=== PATIENT | male | born 1945 | race Hispanic/Latino ===

== ENCOUNTER 2017-06-30 00:08 | Observation (INO) | payer MEDICARE ==
[~2017-06-30 00:08] MED LIST: AEC81 PO; CILO50TA PO; CLOP75TA14 PO; IBUP-2076 PO; INSULIN; LISI10TA7 PO; METF10004 PO; METO-408 PO; Metoprolol Succinate PO; ROSU10TA GT; TRAM50TA4 PO; [UNRECOGNIZED DRUG - OTHER] PO
[2017-06-30 00:50] LABS: BASOPHILS % (AUTO) 0.4 % (0.0-5.0); EOSINOPHILS % (AUTO) 0.8 % (0.0-8.0); HEMATOCRIT 35.4 % (42-54); LYMPHOCYTES % (AUTO) 38.6 % (21.0-51.0); MEAN CORPUSCULAR HEMOGLOBIN 31.9 pg (27.0-33.0); MEAN CORPUSCULAR HGB CONC 34.7 g/dL (32.0-36.0); MEAN CORPUSCULAR VOLUME 91.8 fL (79-99); MONOCYTES % (AUTO) 7.6 % (3.0-13.0); NEUTROPHILS % (AUTO) 52.6 % (40.0-77.0); PLATELET COUNT (AUTO) 102 K/uL (130-400); RED BLOOD CELL COUNT(AUTO) 3.86 MIL/uL (4.50-6.20); RED CELL DISTRIBUTION WIDTH 13.2 % (11.0-15.5); WHITE BLOOD COUNT (AUTO) 7.6 K/uL (4.8-10.8)
[2017-06-30 00:59] LABS: CARBON DIOXIDE 27 mmol/L (21-32); CHLORIDE 100 mmol/L (101-111); CREATININE 1.3 mg/dL (0.5-1.5); GLOMERULAR FILTR. RATE CALC 58 mL/min (>60); GLUCOSE,RANDOM 221 mg/dL (70-105); POTASSIUM 4.1 mmol/L (3.5-5.1); SODIUM SERUM 135 mmol/L (136-145); UREA NITROGEN, BLOOD 21 mg/dL (7-18)
[2017-06-30] MEDS ORDERED: ASPIRIN 325 MG TABLET ONE (00:59)
[2017-06-30] MEDS ORDERED: NITROGLYCERIN 1GM/1 INCH PACKET TD ONE (01:00)
[2017-06-30 01:03] LABS: ALANINE AMINOTRANSFERASE 22 U/L (12-78); ALBUMIN 3.2 g/dL (3.5-5.0); ASPARTATE AMINOTRANSFERASE 7 U/L (10-37); BILIRUBIN,DIRECT < 0.1 mg/dL (0.0-0.3); BILIRUBIN,TOTAL 0.2 mg/dL (0.2-1.0); CREATINE KINASE, TOTAL 132 U/L (21-232)
[2017-06-30 08:13] LABS: BASOPHILS % (AUTO) 0.4 % (0.0-5.0); EOSINOPHILS % (AUTO) 0.8 % (0.0-8.0); HEMATOCRIT 36.8 % (42-54); LYMPHOCYTES % (AUTO) 42.5 % (21.0-51.0); MEAN CORPUSCULAR HEMOGLOBIN 31.4 pg (27.0-33.0); MEAN CORPUSCULAR HGB CONC 33.8 g/dL (32.0-36.0); MONOCYTES % (AUTO) 7.6 % (3.0-13.0); NEUTROPHILS % (AUTO) 48.7 % (40.0-77.0); PLATELET COUNT (AUTO) 114 K/uL (130-400); RED BLOOD CELL COUNT(AUTO) 3.96 MIL/uL (4.50-6.20); RED CELL DISTRIBUTION WIDTH 13.1 % (11.0-15.5); WHITE BLOOD COUNT (AUTO) 6.3 K/uL (4.8-10.8)
[2017-06-30 08:22] LABS: CREATININE 1.2 mg/dL (0.5-1.5); POTASSIUM 4.1 mmol/L (3.5-5.1)
[2017-06-30 08:26] LABS: ALBUMIN 3.4 g/dL (3.5-5.0); BILIRUBIN,TOTAL 0.3 mg/dL (0.2-1.0); TOTAL PROTEIN, SERUM 7.2 g/dL (6.0-8.3)
[2017-06-30 08:37] LABS: CREATINE KINASE MB 2.3 ng/mL (0.5-3.6); CREATINE KINASE, TOTAL 131 U/L (21-232); MYOGLOBIN 96 ng/mL (10-92); TROPONIN I < 0.04 ng/mL (0.00-0.06)
[2017-06-30 12:43] LABS: CREATINE KINASE MB 2.1 ng/mL (0.5-3.6); CREATINE KINASE, TOTAL 133 U/L (21-232); MYOGLOBIN 109 ng/mL (10-92); TROPONIN I < 0.04 ng/mL (0.00-0.06)
== END 2017-06-30 17:07 | disposition home or self-care (01) ==
LOC: EDH 00:08 → EDHIP 03:50
PROVIDERS: ADMIT Family Medicine; ATTEND Family Medicine
DX: I24.9 Acute ischemic heart disease, unspecified (principal); R07.2 Precordial pain; I25.10 Atherosclerotic heart disease of native coronary artery without angina pectoris; I10 Essential (primary) hypertension; E78.5 Hyperlipidemia, unspecified; E11.9 Type 2 diabetes mellitus without complications; Z95.1 Presence of aortocoronary bypass graft; F17.210 Nicotine dependence, cigarettes, uncomplicated
CPT/HCPCS: 36415; 71010; 80048; 80053; 80076; 82550 ×3; 82553 ×2; 83874 ×2; 83880; 84484 ×3; 85025 ×2; 93005 ×3; 99285; G0378 ×13

== ENCOUNTER 2017-10-03 14:48 | Inpatient (IN) | payer MEDICARE ==
[~2017-10-03] VITALS: Ht 172.7 cm; Wt 83.7 kg
[2017-10-03] MEDS ORDERED: ACETAMINOPHEN 325 MG TAB ONE ×2 (15:15→21:17)
[2017-10-03 15:56] LABS: APPEARANCE,URINE Clear (CLEAR); BASOPHILS % (AUTO) 0.3 % (0.0-5.0); BILIRUBIN,URINE Negative (NEGATIVE); COLOR,URINE Yellow (YELLOW); EOSINOPHILS % (AUTO) 0.1 % (0.0-8.0); GLUCOSE, URINE (UA) 500 mg/dL (NEGATIVE); HEMATOCRIT 40.2 % (42-54); KETONES,URINE Negative (NEGATIVE); LEUKOCYTE ESTERASE ,URINE Trace (NEGATIVE); LYMPHOCYTES % (AUTO) 8.7 % (21.0-51.0); MEAN CORPUSCULAR HEMOGLOBIN 31.2 pg (27.0-33.0); MEAN CORPUSCULAR HGB CONC 34.4 g/dL (32.0-36.0); MEAN CORPUSCULAR VOLUME 90.6 fL (79-99); MONOCYTES % (AUTO) 3.5 % (3.0-13.0); NEUTROPHILS % (AUTO) 87.4 % (40.0-77.0); NITRATE,URINE Negative (NEGATIVE); OCCULT BLOOD,URINE Negative (NEGATIVE); PLATELET COUNT (AUTO) 120 K/uL (130-400); PROTEIN,URINE Negative (NEGATIVE); RED BLOOD CELL COUNT(AUTO) 4.43 MIL/uL (4.50-6.20); RED CELL DISTRIBUTION WIDTH 13.3 % (11.0-15.5); UROBILINOGEN,URINE 0.2 mg/dL (0.2-1.0); WHITE BLOOD COUNT (AUTO) 8.9 K/uL (4.8-10.8)
[2017-10-03 16:13] LABS: RBC,URINE None Seen /HPF (0-1); WBC,URINE 0-1 /HPF (0-1)
[2017-10-03 16:14] LABS: BACTERIA,URINE None Seen /HPF (None Seen)
[2017-10-03 16:17] LABS: CREATININE 1.4 mg/dL (0.5-1.5); POTASSIUM 4.5 mmol/L (3.5-5.1)
[2017-10-03 16:52] LABS: ALBUMIN 3.9 g/dL (3.5-5.0); BILIRUBIN,DIRECT 0.1 mg/dL (0.0-0.3); BILIRUBIN,TOTAL 0.5 mg/dL (0.2-1.0); TOTAL PROTEIN, SERUM 8.5 g/dL (6.0-8.3)
[2017-10-03] MEDS ORDERED: SODIUM CHLORIDE 0.9% 1000ML 1,000 ML IV ONE ×2 (17:23→20:34)
[2017-10-03] MEDS ORDERED: CEFTRIAXONE SODIUM 1 GM ONE (17:53)
[2017-10-03 21:13] VITALS: BP 134/66
[2017-10-03] MEDS ORDERED: ACETAMINOPHEN 325 MG TAB PO PRN (22:45)
[2017-10-03] MEDS: SODIUM CHLORIDE 0.9% 1000ML 1,000 ML IV SCH (22:45)
[2017-10-03] MEDS ORDERED: GLUCAGON 1MG KIT 1 MG ML IM PRN (22:45)
[2017-10-03] MEDS ORDERED: DEXTROSE 50%-WATER 50 ML DISP.SYRIN IV PRN (22:45)
[2017-10-03 23:00] VITALS: BP 141/61
[2017-10-03] MEDS ORDERED: LISI1TAB11 PO (23:07)
[2017-10-03] MEDS ORDERED: DOCU100C33 PO (23:07)
[2017-10-03] MEDS ORDERED: GLIM4TAB3 PO (23:07)
[2017-10-03] MEDS ORDERED: IBUP-2070 PO (23:07)
[2017-10-04] VITALS (8 sets, daily range): BP systolic 100–178; BP diastolic 44–95
[2017-10-04] MEDS: CEFTRIAXONE SODIUM 1 GM IVP SCH
[2017-10-04 05:58] LABS: HEMATOCRIT 35.5 % (42-54); MEAN CORPUSCULAR HEMOGLOBIN 31.7 pg (27.0-33.0); MEAN CORPUSCULAR HGB CONC 34.9 g/dL (32.0-36.0); MEAN CORPUSCULAR VOLUME 90.9 fL (79-99); PLATELET COUNT (AUTO) 110 K/uL (130-400); RED BLOOD CELL COUNT(AUTO) 3.91 MIL/uL (4.50-6.20); RED CELL DISTRIBUTION WIDTH 13.4 % (11.0-15.5); WHITE BLOOD COUNT (AUTO) 6.7 K/uL (4.8-10.8)
[2017-10-04 06:04] LABS: CREATININE 1.4 mg/dL (0.5-1.5); POTASSIUM 3.9 mmol/L (3.5-5.1)
[2017-10-04] MEDS: INSULIN R PO SS1 SQ SCH ×4 (07:30→21:00)
[2017-10-04] MEDS: SODIUM CHLORIDE 0.9% 1000ML 1,000 ML IV SCH (13:03)
[2017-10-04] MEDS ORDERED: TRAMADOL HCL 50 MG TABLET PO PRN (16:45)
[2017-10-04] MEDS ORDERED: IBUPROFEN 600 MG TABLET PO PRN (16:45)
[2017-10-04] MEDS: METFORMIN HCL 500 MG TABLET PO SCH (17:31)
[2017-10-04 20:26] LABS: CREATININE 1.3 mg/dL (0.5-1.5); POTASSIUM 4.2 mmol/L (3.5-5.1)
[2017-10-04] MEDS: GLIMEPIRIDE 2 MG TABLET PO SCH (21:00)
[2017-10-04] MEDS: METOPROLOL TARTRATE 25 MG TAB PO SCH (21:00)
[2017-10-05] MEDS: CEFTRIAXONE SODIUM 1 GM IVP SCH ×2 (00:49→23:18)
[2017-10-05 03:00] VITALS: BP 165/71
[2017-10-05 06:09] LABS: HEMATOCRIT 35.8 % (42-54); MEAN CORPUSCULAR HEMOGLOBIN 31.7 pg (27.0-33.0); MEAN CORPUSCULAR HGB CONC 34.9 g/dL (32.0-36.0); MEAN CORPUSCULAR VOLUME 90.7 fL (79-99); PLATELET COUNT (AUTO) 102 K/uL (130-400); RED BLOOD CELL COUNT(AUTO) 3.95 MIL/uL (4.50-6.20); RED CELL DISTRIBUTION WIDTH 13.1 % (11.0-15.5); WHITE BLOOD COUNT (AUTO) 6.9 K/uL (4.8-10.8)
[2017-10-05 07:21] LABS: BASOPHILS % (MANUAL) 1 % (0-2); LYMPHOCYTES % (MANUAL) 25 % (22-44); MAN.DIFF COMMENT-IMPRESSION MANUAL DIFFERENTIAL; MONOCYTES % (MANUAL) 3 % (2-9); REACTIVE LYMPHOCYTES 2 % (0-0); SEGMENTED NEUTROPHILS % 69 % (40-70)
[2017-10-05 07:28] LABS: PLATELET MORPHOLOGY COMMENT SLIGHTLY DECREASED
[2017-10-05] MEDS: INSULIN R PO SS1 SQ SCH ×4 (07:30→20:37)
[2017-10-05 08:00] VITALS: BP 157/72
[2017-10-05] MEDS: METFORMIN HCL 500 MG TABLET PO SCH ×2 (08:00→17:24)
[2017-10-05] MEDS: DOCUSATE SODIUM 100 MG CAP PO SCH (09:00)
[2017-10-05] MEDS: METOPROLOL TARTRATE 25 MG TAB PO SCH ×2 (09:00→22:25)
[2017-10-05] MEDS: LISINOPRIL 20 MG TABLET PO SCH (09:00)
[2017-10-05] MEDS: ASPIRIN 81 MG EC TAB PO SCH (09:00)
[2017-10-05] MEDS: GLIMEPIRIDE 2 MG TABLET PO SCH ×2 (09:02→22:25)
[2017-10-05] MEDS: SODIUM CHLORIDE 0.9% 1000ML 1,000 ML IV SCH ×2 (09:05→17:39)
[2017-10-05 11:00] VITALS: BP 149/68
[2017-10-05 16:00] VITALS: BP 104/73
[2017-10-05 19:50] VITALS: BP 163/78
[2017-10-05 23:23] VITALS: BP 155/71
[2017-10-06 03:45] VITALS: BP 153/78
[2017-10-06] MEDS: INSULIN R PO SS1 SQ SCH ×3 (06:54→16:30)
[2017-10-06 08:00] VITALS: BP 114/62
[2017-10-06 11:00] VITALS: BP 128/68
[2017-10-06] MEDS: LISINOPRIL 20 MG TABLET PO SCH (11:38)
[2017-10-06] MEDS: GLIMEPIRIDE 2 MG TABLET PO SCH (11:38)
[2017-10-06] MEDS: METFORMIN HCL 500 MG TABLET PO SCH ×2 (11:38→16:30)
[2017-10-06] MEDS: ASPIRIN 81 MG EC TAB PO SCH (11:38)
[2017-10-06] MEDS: DOCUSATE SODIUM 100 MG CAP PO SCH (11:39)
[2017-10-06] MEDS: METOPROLOL TARTRATE 25 MG TAB PO SCH (11:39)
[2017-10-06 16:00] VITALS: BP 125/60
== END 2017-10-06 19:30 | disposition home or self-care (01) | DRG 639 ==
LOC: EDH 14:48 → EDHIP 17:50 → 3BH 20:23
PROVIDERS: ADMIT Family Medicine; ATTEND Family Medicine
DX: E11.65 Type 2 diabetes mellitus with hyperglycemia (principal); R50.9 Fever, unspecified; E78.5 Hyperlipidemia, unspecified; I10 Essential (primary) hypertension; I25.10 Atherosclerotic heart disease of native coronary artery without angina pectoris; Z95.1 Presence of aortocoronary bypass graft; F41.9 Anxiety disorder, unspecified; F17.200 Nicotine dependence, unspecified, uncomplicated
CPT/HCPCS: 36415; 71046; 80048; 80076; 81001; 82550; 82948; 83605; 83880; 84484; 85025; 85027; 87040; 87088; 87804; 93005; J0696; J1815; J7030

== ENCOUNTER 2018-06-18 21:01 | Observation (INO) | payer MEDICARE ==
[~2018-06-18] VITALS: Ht 172.7 cm; Wt 76.8 kg
[~2018-06-18 21:01] MED LIST changes: -CILO50TA PO; -CLOP75TA14 PO; +DOCU100C33 PO; +GLIM4TAB3 PO; +IBUP-2070 PO; -IBUP-2076 PO; -INSULIN; +METF-446 PO; -METF10004 PO; -METO-408 PO; -ROSU10TA GT; -[UNRECOGNIZED DRUG - OTHER] PO
[2018-06-18 21:20] LABS: BASOPHILS % (AUTO) 0.3 % (0.0-5.0); EOSINOPHILS % (AUTO) 0.4 % (0.0-8.0); HEMATOCRIT 37.3 % (42-54); LYMPHOCYTES % (AUTO) 30.5 % (21.0-51.0); MEAN CORPUSCULAR HEMOGLOBIN 31.8 pg (27.0-33.0); MEAN CORPUSCULAR HGB CONC 34.3 g/dL (32.0-36.0); MEAN CORPUSCULAR VOLUME 92.7 fL (79-99); MONOCYTES % (AUTO) 10.5 % (3.0-13.0); NEUTROPHILS % (AUTO) 58.3 % (40.0-77.0); PLATELET COUNT (AUTO) 113 K/uL (130-400); RED BLOOD CELL COUNT(AUTO) 4.02 MIL/uL (4.50-6.20); RED CELL DISTRIBUTION WIDTH 13.1 % (11.0-15.5); WHITE BLOOD COUNT (AUTO) 7.6 K/uL (4.8-10.8)
[2018-06-18 21:23] LABS: APPEARANCE,URINE Clear (CLEAR); BILIRUBIN,URINE Negative (NEGATIVE); COLOR,URINE Yellow (YELLOW); GLUCOSE, URINE (UA) >=1000 mg/dL (NEGATIVE); KETONES,URINE Trace mg/dL (NEGATIVE); LEUKOCYTE ESTERASE ,URINE Negative (NEGATIVE); NITRATE,URINE Negative (NEGATIVE); OCCULT BLOOD,URINE Trace (NEGATIVE); PH,URINE 5.5 (5.0-8.0); PROTEIN,URINE POS 1+ (NEGATIVE)
[2018-06-18 21:30] LABS: CREATININE 1.3 mg/dL (0.5-1.5)
[2018-06-18 21:35] LABS: ALBUMIN 3.5 g/dL (3.5-5.0); BILIRUBIN,TOTAL 0.5 mg/dL (0.2-1.0)
[2018-06-18 21:35] LABS: BACTERIA,URINE Few /HPF (None Seen); MUCUS,URINE Few LPF (None Seen); SQUAMOUS EPITHELIAL CELL,UR Few /HPF (0-2); WBC,URINE 0-1 /HPF (0-1)
[2018-06-18] MEDS ORDERED: CLINDAMYCIN 900 MG/D5% WATER 50 ML IV ONE (21:44)
[2018-06-18 21:54] LABS: INR 0.98 (0.85-1.15); PARTIAL THROMBOPLASTIN TIME 31.2 SEC (26.3-35.5); PROTHROMBIN TIME 10.3 SEC (9.6-11.6)
[2018-06-18 22:22] LABS: TROPONIN I 0.06 ng/mL (0.00-0.06)
[2018-06-19] MEDS ORDERED: IOHEXOL-350 50ML VIAL IV ONE (00:06)
[2018-06-19] MEDS ORDERED: SODIUM CHLORIDE 0.9% 1000ML 1,000 ML IV SCH (00:22)
[2018-06-19] MEDS ORDERED: ACETAMINOPHEN-CODEINE 300/30MG TAB PO PRN (00:30)
[2018-06-19 02:56] VITALS: BP 155/76
[2018-06-19] MEDS: ZOSYN 3.375GM+NS 50ML 50 ML IV SCH ×3 (04:50→21:11)
[2018-06-19] MEDS ORDERED: GLUCAGON 1MG KIT 1 MG ML IM PRN (05:30)
[2018-06-19] MEDS ORDERED: DEXTROSE 50%-WATER 50 ML DISP.SYRIN IV PRN (05:30)
[2018-06-19] MEDS: CLINDAMYCIN 600 MG/D5% WATER 50 ML IV SCH ×3 (06:07→21:12)
[2018-06-19] MEDS: INSULIN HUMULIN R 100 UNIT/ML 3ML SQ SCH ×4 (06:47→21:14)
[2018-06-19 07:00] VITALS: BP 158/71
[2018-06-19] MEDS: ***HM***Metoprolol Succinate 25 MG PO SCH (09:00)
[2018-06-19] MEDS: ENOXAPARIN SODIUM 30 MG/0.3 ML SQ SCH (10:08)
[2018-06-19] MEDS: DOCUSATE SODIUM 100 MG CAP PO SCH (10:08)
[2018-06-19] MEDS: FAMOTIDINE 20MG TAB 20 MG TAB PO SCH ×2 (10:09→21:12)
[2018-06-19] MEDS: ASPIRIN 81 MG EC TAB PO SCH (10:09)
[2018-06-19] MEDS: LISINOPRIL 10 MG TABLET PO SCH (10:09)
[2018-06-19 11:00] VITALS: BP 119/71
[2018-06-19 16:00] VITALS: BP 130/68
[2018-06-19 19:00] VITALS: BP 110/56
[2018-06-20] VITALS: BP 121/54
[2018-06-20 04:00] VITALS: BP 138/64
[2018-06-20 05:39] LABS: HEMATOCRIT 31.6 % (42-54); MEAN CORPUSCULAR HGB CONC 34.6 g/dL (32.0-36.0); MEAN CORPUSCULAR VOLUME 92.6 fL (79-99); NUCLEATED RED BLOOD CELLS 0.1 % (0.0-0.19); PLATELET COUNT (AUTO) 104 K/uL (130-400); RED BLOOD CELL COUNT(AUTO) 3.41 MIL/uL (4.50-6.20); RED CELL DISTRIBUTION WIDTH 13.3 % (11.0-15.5); WHITE BLOOD COUNT (AUTO) 5.3 K/uL (4.8-10.8)
[2018-06-20] MEDS: ZOSYN 3.375GM+NS 50ML 50 ML IV SCH ×2 (05:44→13:00)
[2018-06-20] MEDS: CLINDAMYCIN 600 MG/D5% WATER 50 ML IV SCH ×2 (05:44→13:35)
[2018-06-20 05:58] LABS: ALBUMIN 2.9 g/dL (3.5-5.0); BILIRUBIN,TOTAL 0.3 mg/dL (0.2-1.0); CREATININE 1.4 mg/dL (0.5-1.5); POTASSIUM 3.6 mmol/L (3.5-5.1); TOTAL PROTEIN, SERUM 6.8 g/dL (6.0-8.3)
[2018-06-20] MEDS: INSULIN HUMULIN R 100 UNIT/ML 3ML SQ SCH ×2 (06:56→11:30)
[2018-06-20 07:00] VITALS: BP 141/65
[2018-06-20] MEDS: ***HM***Metoprolol Succinate 25 MG PO SCH (09:00)
[2018-06-20] MEDS: FAMOTIDINE 20MG TAB 20 MG TAB PO SCH (10:21)
[2018-06-20] MEDS: ASPIRIN 81 MG EC TAB PO SCH (10:21)
[2018-06-20] MEDS: DOCUSATE SODIUM 100 MG CAP PO SCH (10:21)
[2018-06-20] MEDS: ENOXAPARIN SODIUM 30 MG/0.3 ML SQ SCH (10:22)
[2018-06-20] MEDS: LISINOPRIL 10 MG TABLET PO SCH (10:22)
[2018-06-20 11:00] VITALS: BP 139/70
[2018-06-20] MEDS ORDERED: LACTULOSE 20 GM/30 ML UDCUP PO PRN (13:30)
[2018-06-20] MEDS ORDERED: CLIN300C9 PO (14:19)
== END 2018-06-20 14:48 | disposition home or self-care (01) ==
LOC: EDH 21:01 → EDHIP 06-19 00:05 → 3AH 06-19 00:53
PROVIDERS: ADMIT Hospitalist; ATTEND Hospitalist
DX: K04.7 Periapical abscess without sinus (principal); E11.65 Type 2 diabetes mellitus with hyperglycemia; R50.9 Fever, unspecified; E44.1 Mild protein-calorie malnutrition; I25.10 Atherosclerotic heart disease of native coronary artery without angina pectoris; I51.7 Cardiomegaly; F17.210 Nicotine dependence, cigarettes, uncomplicated; Z82.49 Family history of ischemic heart disease and other diseases of the circulatory system; Z83.3 Family history of diabetes mellitus; Z95.1 Presence of aortocoronary bypass graft
CPT/HCPCS: 36415 ×2; 70487; 71045; 80053 ×2; 81001; 82550; 82948 ×6; 83605; 83874; 84484; 85025; 85027; 85610; 85730; 87040; 87088; 93005; 96361; 96365; 96366 ×2; 96372 ×2; 99284; G0378 ×39; J1650 ×2; J1815 ×2; J2543 ×4; J3490 ×5; Q9967

== ENCOUNTER 2019-01-23 19:12 | Emergency (ER) | payer MEDICARE ==
[~2019-01-23 19:12] MED LIST changes: +ATOR40TA71 PO; +CLOP75TA14 PO; -DOCU100C33 PO; -IBUP-2070 PO; +ISOS60TA4 PO; -LISI10TA7 PO; +LISI40TA4 PO; +METO-391 PO; -Metoprolol Succinate PO; +NITR0.4T SL
[2019-01-23] MEDS ORDERED: SODIUM CHLORIDE 0.9% 1000ML 1,000 ML IV ONE (19:47)
[2019-01-23 20:33] LABS: BASOPHILS % (AUTO) 0.3 % (0.0-5.0); EOSINOPHILS % (AUTO) 0.5 % (0.0-8.0); HEMATOCRIT 33.8 % (42-54); LYMPHOCYTES % (AUTO) 20.7 % (21.0-51.0); MEAN CORPUSCULAR HEMOGLOBIN 32.5 pg (27.0-33.0); MEAN CORPUSCULAR HGB CONC 34.1 g/dL (32.0-36.0); MEAN CORPUSCULAR VOLUME 95.5 fL (79-99); NEUTROPHILS % (AUTO) 71.5 % (40.0-77.0); PLATELET COUNT (AUTO) 111 K/uL (130-400); RED BLOOD CELL COUNT(AUTO) 3.54 MIL/uL (4.50-6.20); WHITE BLOOD COUNT (AUTO) 7.2 K/uL (4.8-10.8)
[2019-01-23 20:47] LABS: CREATININE 1.6 mg/dL (0.5-1.5); POTASSIUM 3.9 mmol/L (3.5-5.1)
[2019-01-23 20:48] LABS: INR 0.97 (0.85-1.15); PARTIAL THROMBOPLASTIN TIME 26.7 SEC (26.3-35.5); PROTHROMBIN TIME 10.2 SEC (9.6-11.6)
[2019-01-23 20:53] LABS: ALBUMIN 3.1 g/dL (3.5-5.0); BILIRUBIN,TOTAL 0.1 mg/dL (0.2-1.0); TOTAL PROTEIN, SERUM 6.8 g/dL (6.0-8.3)
[2019-01-23 21:13] LABS: PLATELET MORPHOLOGY COMMENT SLIGHTLY DECREASED
== END 2019-01-23 23:33 | disposition home or self-care (01) ==
LOC: EDH 19:12
DX: R55 Syncope and collapse (principal); E11.9 Type 2 diabetes mellitus without complications; I10 Essential (primary) hypertension; E78.5 Hyperlipidemia, unspecified; I25.10 Atherosclerotic heart disease of native coronary artery without angina pectoris; Z95.1 Presence of aortocoronary bypass graft; Z79.899 Other long term (current) drug therapy
CPT/HCPCS: 36415; 80053; 84484 ×2; 85025; 85610; 85730; 93005; 96360; 96361; 99285; J7030

== ENCOUNTER 2019-02-25 12:25 | Emergency (ER) | payer MEDICARE ==
[2019-02-25 13:07] LABS: BASOPHILS % (AUTO) 0.5 % (0.0-5.0); EOSINOPHILS % (AUTO) 0.8 % (0.0-8.0); HEMATOCRIT 35.8 % (42-54); LYMPHOCYTES % (AUTO) 30.3 % (21.0-51.0); MEAN CORPUSCULAR HGB CONC 34.1 g/dL (32.0-36.0); MEAN CORPUSCULAR VOLUME 93.8 fL (79-99); MONOCYTES % (AUTO) 5.9 % (3.0-13.0); NEUTROPHILS % (AUTO) 62.5 % (40.0-77.0); PLATELET COUNT (AUTO) 109 K/uL (130-400); RED BLOOD CELL COUNT(AUTO) 3.82 MIL/uL (4.50-6.20); RED CELL DISTRIBUTION WIDTH 13.8 % (11.0-15.5); WHITE BLOOD COUNT (AUTO) 5.2 K/uL (4.8-10.8)
[2019-02-25] MEDS ORDERED: ASPIRIN 325MG EC TAB 325 MG TABLET.DR PO ONE (13:11)
[2019-02-25 13:17] LABS: CREATININE 1.7 mg/dL (0.5-1.5); POTASSIUM 4.6 mmol/L (3.5-5.1)
[2019-02-25 13:20] LABS: INR 0.99 (0.85-1.15); PARTIAL THROMBOPLASTIN TIME 28.4 SEC (26.3-35.5); PROTHROMBIN TIME 10.4 SEC (9.6-11.6)
[2019-02-25 13:21] LABS: ALBUMIN 3.5 g/dL (3.5-5.0); BILIRUBIN,TOTAL 0.4 mg/dL (0.2-1.0); TOTAL PROTEIN, SERUM 7.5 g/dL (6.0-8.3)
[2019-02-25 13:27] LABS: APPEARANCE,URINE Clear (CLEAR); BILIRUBIN,URINE Negative (NEGATIVE); COLOR,URINE Yellow (YELLOW); GLUCOSE, URINE (UA) >=1000 mg/dL (NEGATIVE); KETONES,URINE Negative (NEGATIVE); LEUKOCYTE ESTERASE ,URINE Trace (NEGATIVE); NITRATE,URINE Negative (NEGATIVE); OCCULT BLOOD,URINE Negative (NEGATIVE); PROTEIN,URINE Negative (NEGATIVE)
[2019-02-25 13:36] LABS: BACTERIA,URINE Few /HPF (None Seen); RBC,URINE 0-1 /HPF (0-1); SQUAMOUS EPITHELIAL CELL,UR 0-2 /HPF (0-2); WBC,URINE 0-1 /HPF (0-1)
[2019-02-25] MEDS ORDERED: KETOROLAC TROMETHAMINE 15MG/ML ONE (14:42)
== END 2019-02-25 15:43 | disposition home or self-care (01) ==
LOC: EDH 12:25
DX: M25.511 Pain in right shoulder (principal); E11.9 Type 2 diabetes mellitus without complications; I25.10 Atherosclerotic heart disease of native coronary artery without angina pectoris; E78.5 Hyperlipidemia, unspecified; I10 Essential (primary) hypertension; Z95.1 Presence of aortocoronary bypass graft
CPT/HCPCS: 36415; 71045; 73030; 80053; 81001; 82550; 84484; 85025; 85610; 85730; 93005; 96374; 99285; J1885

== ENCOUNTER 2021-08-12 17:04 | Inpatient (IN) | payer MEDICARE ==
[~2021-08-12] VITALS: Ht 167.6 cm; Wt 75.4 kg
[~2021-08-12 17:04] MED LIST changes: -GLIM4TAB3 PO; +GLIM4TAB36 PO; -ISOS60TA4 PO; -LISI40TA4 PO; +LISI40TA9 PO; -NITR0.4T SL; -TRAM50TA4 PO
[2021-08-12 18:38] LABS: BASOPHILS % (AUTO) 0.3 % (0.0-5.0); EOSINOPHILS % (AUTO) 1.1 % (0.0-8.0); HEMATOCRIT 36.4 % (42-54); LYMPHOCYTES % (AUTO) 14.9 % (21.0-51.0); MEAN CORPUSCULAR HEMOGLOBIN 30.7 pg (27.0-33.0); MEAN CORPUSCULAR HGB CONC 32.4 g/dL (32.0-36.0); MEAN CORPUSCULAR VOLUME 94.8 fL (79-99); MONOCYTES % (AUTO) 10.4 % (3.0-13.0); NEUTROPHILS % (AUTO) 72.8 % (40.0-77.0); PLATELET COUNT (AUTO) 106 K/uL (130-400); RED BLOOD CELL COUNT(AUTO) 3.84 MIL/uL (4.50-6.20); RED CELL DISTRIBUTION WIDTH 12.6 % (11.0-15.5); WHITE BLOOD COUNT (AUTO) 6.3 K/uL (4.8-10.8)
[2021-08-12 18:48] LABS: INR 1.02 (0.85-1.15); PROTHROMBIN TIME 11.1 SEC (9.6-11.6)
[2021-08-12 18:55] LABS: CREATININE 1.5 mg/dL (0.5-1.5); POTASSIUM 4.5 mmol/L (3.5-5.1)
[2021-08-12 19:00] LABS: ALBUMIN 3.7 g/dL (3.5-5.0); BILIRUBIN,TOTAL 0.2 mg/dL (0.2-1.0); MAGNESIUM 1.7 mg/dL (1.80-2.40); TOTAL PROTEIN, SERUM 7.9 g/dL (6.0-8.3)
[2021-08-12] MEDS ORDERED: CEFAZOLIN SODIUM 1 GM VIAL IVP SCH (20:00)
[2021-08-12] MEDS ORDERED: MORPHINE 2 MG SYG IVP ONE (20:00)
[2021-08-12] MEDS ORDERED: MAGNESIUM 2GM PREMIX 50ML 50 ML IV SCH (20:30)
[2021-08-12] MEDS ORDERED: VANCOMYCIN PROTOCOL PER PHARMACY IV SCH (20:30)
[2021-08-12] MEDS ORDERED: VANCOMYCIN 1.5GM/NS 250ML IV ONE ×2 (21:00)
[2021-08-12] MEDS ORDERED: DEXTROSE 50%-WATER 50 ML DISP.SYRIN IV PRN (21:00)
[2021-08-12] MEDS ORDERED: GLUCAGON 1MG KIT 1 MG ML IM PRN (21:00)
[2021-08-12] MEDS ORDERED: ONDANSETRON 4MG INJ IV PRN (21:00)
[2021-08-12] MEDS: INSULIN HUMULIN R 100 UNIT/ML 3ML SQ SCH (21:00)
[2021-08-12] MEDS ORDERED: ACETAMINOPHEN 325 MG TAB PO PRN (21:00)
[2021-08-12] MEDS: CEFTRIAXONE 1G VIAL IVP SCH (21:12)
[2021-08-12] MEDS: FAMOTIDINE 20MG TAB PO SCH (21:21)
[2021-08-12 21:27] LABS: HEMOGLOBIN A1C 7.2 % (4.0-6.0)
[2021-08-12 21:38] LABS: CRP QUANTITATIVE 20.7 mg/L (0.00-9.0)
[2021-08-12] MEDS ORDERED: ERGOCALCIFEROL (VITAMIN D2) 50,000 UNIT CAPSULE PO ONE (22:00)
[2021-08-12] MEDS: NITROGLYCERIN 0.4 MG SL TAB SL PRN ×3 (23:22→23:55)
[2021-08-13] MEDS: ACETAMINOPHEN 325 MG TAB PO PRN (02:21)
[2021-08-13 05:44] LABS: BASOPHILS % (AUTO) 0.2 % (0.0-5.0); EOSINOPHILS % (AUTO) 0.3 % (0.0-8.0); HEMATOCRIT 35.2 % (42-54); LYMPHOCYTES % (AUTO) 16.5 % (21.0-51.0); MEAN CORPUSCULAR HEMOGLOBIN 30.1 pg (27.0-33.0); MEAN CORPUSCULAR HGB CONC 32.4 g/dL (32.0-36.0); MEAN CORPUSCULAR VOLUME 92.9 fL (79-99); MONOCYTES % (AUTO) 11.3 % (3.0-13.0); NEUTROPHILS % (AUTO) 70.6 % (40.0-77.0); PLATELET COUNT (AUTO) 96 K/uL (130-400); RED BLOOD CELL COUNT(AUTO) 3.79 MIL/uL (4.50-6.20); RED CELL DISTRIBUTION WIDTH 12.6 % (11.0-15.5); WHITE BLOOD COUNT (AUTO) 6.1 K/uL (4.8-10.8)
[2021-08-13 06:11] LABS: ALBUMIN 3.4 g/dL (3.5-5.0); BILIRUBIN,TOTAL 0.2 mg/dL (0.2-1.0); CREATININE 1.3 mg/dL (0.5-1.5); CRP QUANTITATIVE 24.6 mg/L (0.00-9.0); MAGNESIUM 2.1 mg/dL (1.80-2.40); POTASSIUM 4.2 mmol/L (3.5-5.1); TOTAL PROTEIN, SERUM 7.4 g/dL (6.0-8.3)
[2021-08-13] MEDS: INSULIN HUMULIN R 100 UNIT/ML 3ML SQ SCH ×4 (07:30→20:54)
[2021-08-13] MEDS: ASCORBIC ACID 500 MG TAB PO SCH (08:40)
[2021-08-13] MEDS: ACETYLCYSTEINE 600 MG CAPSULE PO SCH ×2 (08:40→20:41)
[2021-08-13] MEDS: ZINC SULFATE 220 CAPSULE PO SCH (08:40)
[2021-08-13] MEDS ORDERED: 0.9%NACL 100ML 100 ML ONE (08:42)
[2021-08-13] MEDS: VANCOMYCIN 500MG+NS 100ML 100 ML IV SCH ×2 (08:56→21:00)
[2021-08-13] MEDS: ASPIRIN 81 MG EC TAB PO SCH (10:50)
[2021-08-13] MEDS: ENOXAPARIN SODIUM 40 MG/0.4 ML SYRINGE SQ SCH ×2 (12:57→20:42)
[2021-08-13] MEDS ORDERED: LOSARTAN 25 MG TABLET PO ONE (18:00)
[2021-08-13] MEDS: ISOSORBIDE MONO 60MG SR TAB PO SCH (18:00)
[2021-08-13] MEDS: CEFTRIAXONE 1G VIAL IVP SCH (20:41)
[2021-08-13] MEDS: ATORVASTATIN 40 MG TABLET PO SCH (20:41)
[2021-08-13] MEDS: FAMOTIDINE 20MG TAB PO SCH (20:41)
[2021-08-13 21:40] VITALS: BP 146/78
[2021-08-13 23:31] VITALS: BP 134/63
[2021-08-14] MEDS ORDERED: ISOS20TA85 PO (01:02)
[2021-08-14 04:30] VITALS: BP 141/60
[2021-08-14 05:03] LABS: BASOPHILS % (AUTO) 0.4 % (0.0-5.0); EOSINOPHILS % (AUTO) 0.4 % (0.0-8.0); HEMATOCRIT 36.5 % (42-54); LYMPHOCYTES % (AUTO) 24.1 % (21.0-51.0); MEAN CORPUSCULAR HEMOGLOBIN 30.9 pg (27.0-33.0); MEAN CORPUSCULAR HGB CONC 32.9 g/dL (32.0-36.0); MEAN CORPUSCULAR VOLUME 94.1 fL (79-99); MONOCYTES % (AUTO) 12.8 % (3.0-13.0); NEUTROPHILS % (AUTO) 61.9 % (40.0-77.0); PLATELET COUNT (AUTO) 94 K/uL (130-400); RED BLOOD CELL COUNT(AUTO) 3.88 MIL/uL (4.50-6.20); RED CELL DISTRIBUTION WIDTH 12.8 % (11.0-15.5); WHITE BLOOD COUNT (AUTO) 5.4 K/uL (4.8-10.8)
[2021-08-14 05:31] LABS: ALBUMIN 3.4 g/dL (3.5-5.0); BILIRUBIN,TOTAL 0.3 mg/dL (0.2-1.0); CREATININE 1.4 mg/dL (0.5-1.5); CRP QUANTITATIVE 38.8 mg/L (0.00-9.0); POTASSIUM 4.1 mmol/L (3.5-5.1); TOTAL PROTEIN, SERUM 7.6 g/dL (6.0-8.3)
[2021-08-14] MEDS: INSULIN HUMULIN R 100 UNIT/ML 3ML SQ SCH ×4 (06:05→21:35)
[2021-08-14] MEDS ORDERED: IOHEXOL 350 MG/ML 100ML INFUS..BTL IV ONE (07:26)
[2021-08-14] MEDS ORDERED: IOHEXOL-350 50ML VIAL IV ONE (07:26)
[2021-08-14] MEDS ORDERED: 0.9%NACL 1000ML 1,000 ML IV SCH (07:30)
[2021-08-14 08:00] VITALS: BP 165/71
[2021-08-14] MEDS: ZINC SULFATE 220 CAPSULE PO SCH (09:25)
[2021-08-14] MEDS: ACETYLCYSTEINE 600 MG CAPSULE PO SCH ×2 (09:25→20:30)
[2021-08-14] MEDS: LOSARTAN 25 MG TABLET PO SCH (09:25)
[2021-08-14] MEDS: ASCORBIC ACID 500 MG TAB PO SCH (09:25)
[2021-08-14] MEDS: ASPIRIN 81 MG EC TAB PO SCH (09:25)
[2021-08-14] MEDS: ISOSORBIDE MONO 60MG SR TAB PO SCH (09:25)
[2021-08-14] MEDS: CILOSTAZOL 100 MG TAB PO SCH ×2 (09:26→20:30)
[2021-08-14] MEDS: ENOXAPARIN SODIUM 40 MG/0.4 ML SYRINGE SQ SCH ×2 (09:26→20:31)
[2021-08-14] MEDS ORDERED: 0.9% NACL 250ML 250 ML ONE (09:41)
[2021-08-14] MEDS: VANCOMYCIN 500MG+NS 100ML 100 ML IV SCH ×2 (09:42→20:30)
[2021-08-14] MEDS ORDERED: CILO100T PO (09:44)
[2021-08-14] MEDS: ACETAMINOPHEN 325 MG TAB PO PRN (09:53)
[2021-08-14] MEDS ORDERED: CLIN-141 PO (09:58)
[2021-08-14] MEDS: ZOSYN 3.375GM +NS 50ML IV SCH ×2 (11:58→20:30)
[2021-08-14 12:00] VITALS: BP 123/84
[2021-08-14 16:00] VITALS: BP 126/67
[2021-08-14 20:00] VITALS: BP 153/70
[2021-08-14] MEDS: ATORVASTATIN 40 MG TABLET PO SCH (20:30)
[2021-08-14] MEDS: FAMOTIDINE 20MG TAB PO SCH (20:30)
[2021-08-15] VITALS: BP 119/56
[2021-08-15 04:00] VITALS: BP 102/56
[2021-08-15] MEDS: ZOSYN 3.375GM +NS 50ML IV SCH ×3 (04:13→21:02)
[2021-08-15 05:36] LABS: BASOPHILS % (AUTO) 0.2 % (0.0-5.0); EOSINOPHILS % (AUTO) 0.4 % (0.0-8.0); HEMATOCRIT 36.2 % (42-54); LYMPHOCYTES % (AUTO) 27.5 % (21.0-51.0); MEAN CORPUSCULAR HEMOGLOBIN 30.2 pg (27.0-33.0); MEAN CORPUSCULAR HGB CONC 32.6 g/dL (32.0-36.0); MEAN CORPUSCULAR VOLUME 92.6 fL (79-99); MONOCYTES % (AUTO) 11.2 % (3.0-13.0); NEUTROPHILS % (AUTO) 60.5 % (40.0-77.0); PLATELET COUNT (AUTO) 106 K/uL (130-400); RED BLOOD CELL COUNT(AUTO) 3.91 MIL/uL (4.50-6.20); RED CELL DISTRIBUTION WIDTH 12.6 % (11.0-15.5); WHITE BLOOD COUNT (AUTO) 5.3 K/uL (4.8-10.8)
[2021-08-15 05:48] LABS: ALBUMIN 3.3 g/dL (3.5-5.0); BILIRUBIN,TOTAL 0.3 mg/dL (0.2-1.0); CREATININE 1.7 mg/dL (0.5-1.5); CRP QUANTITATIVE 44.2 mg/L (0.00-9.0); POTASSIUM 3.9 mmol/L (3.5-5.1); TOTAL PROTEIN, SERUM 7.4 g/dL (6.0-8.3)
[2021-08-15] MEDS: INSULIN HUMULIN R 100 UNIT/ML 3ML SQ SCH ×4 (06:01→21:00)
[2021-08-15 07:59] VITALS: BP 113/58
[2021-08-15] MEDS: VANCOMYCIN 500MG+NS 100ML 100 ML IV SCH ×3 (09:00→21:00)
[2021-08-15] MEDS: ASCORBIC ACID 500 MG TAB PO SCH (09:07)
[2021-08-15] MEDS: ISOSORBIDE MONO 60MG SR TAB PO SCH (09:07)
[2021-08-15] MEDS: ZINC SULFATE 220 CAPSULE PO SCH (09:07)
[2021-08-15] MEDS: ASPIRIN 81 MG EC TAB PO SCH (09:08)
[2021-08-15] MEDS: CILOSTAZOL 100 MG TAB PO SCH ×2 (09:08→20:59)
[2021-08-15] MEDS: LOSARTAN 25 MG TABLET PO SCH (09:08)
[2021-08-15] MEDS: ACETYLCYSTEINE 600 MG CAPSULE PO SCH ×2 (09:08→21:00)
[2021-08-15] MEDS: ENOXAPARIN SODIUM 40 MG/0.4 ML SYRINGE SQ SCH ×2 (09:09→21:02)
[2021-08-15 11:50] VITALS: BP 102/58
[2021-08-15] MEDS ORDERED: 0.9% NACL 500ML IV.SOLN 500 ML IV STA (15:49)
[2021-08-15 16:00] VITALS: BP 94/37
[2021-08-15 20:00] VITALS: BP 118/65
[2021-08-15] MEDS: FAMOTIDINE 20MG TAB PO SCH (20:59)
[2021-08-15] MEDS: ATORVASTATIN 40 MG TABLET PO SCH (21:00)
[2021-08-15] MEDS: ACETAMINOPHEN 325 MG TAB PO PRN (21:03)
[2021-08-15] MEDS ORDERED: LACTULOSE 20 GM/30 ML UDCUP PO ONE (22:30)
[2021-08-16] VITALS: BP 109/59
[2021-08-16 04:00] VITALS: BP 104/52
[2021-08-16 04:11] LABS: HEMATOCRIT 34.5 % (42-54); MEAN CORPUSCULAR HGB CONC 31.9 g/dL (32.0-36.0); RED BLOOD CELL COUNT(AUTO) 3.67 MIL/uL (4.50-6.20); RED CELL DISTRIBUTION WIDTH 12.6 % (11.0-15.5); WHITE BLOOD COUNT (AUTO) 5.4 K/uL (4.8-10.8)
[2021-08-16 04:19] LABS: CREATININE 1.8 mg/dL (0.5-1.5); POTASSIUM 4.3 mmol/L (3.5-5.1)
[2021-08-16] MEDS: ZOSYN 3.375GM +NS 50ML IV SCH ×2 (04:34→12:48)
[2021-08-16] MEDS ORDERED: LACTULOSE 20 GM/30 ML UDCUP PO ONE (05:00)
[2021-08-16] MEDS: INSULIN HUMULIN R 100 UNIT/ML 3ML SQ SCH ×2 (06:05→12:46)
[2021-08-16 08:28] VITALS: BP 144/58
[2021-08-16] MEDS: ACETYLCYSTEINE 600 MG CAPSULE PO SCH (09:54)
[2021-08-16] MEDS: LOSARTAN 25 MG TABLET PO SCH (09:54)
[2021-08-16] MEDS: ZINC SULFATE 220 CAPSULE PO SCH (09:54)
[2021-08-16] MEDS: ASPIRIN 81 MG EC TAB PO SCH (09:54)
[2021-08-16] MEDS: ASCORBIC ACID 500 MG TAB PO SCH (09:54)
[2021-08-16] MEDS: CILOSTAZOL 100 MG TAB PO SCH (09:54)
[2021-08-16] MEDS: ISOSORBIDE MONO 60MG SR TAB PO SCH (09:54)
[2021-08-16] MEDS: VANCOMYCIN 500MG+NS 100ML 100 ML IV SCH (09:55)
[2021-08-16] MEDS: ENOXAPARIN SODIUM 40 MG/0.4 ML SYRINGE SQ SCH (09:56)
[2021-08-16] MEDS ORDERED: GUAIFENESIN-DM 200/20 MG 10 ML PO PRN (10:30)
[2021-08-16 12:12] VITALS: BP 157/82
== END 2021-08-16 14:58 | disposition home or self-care (01) | DRG 602 ==
LOC: EDH 17:04 → EDHIP 20:36 → 4AH 08-13 20:23
PROVIDERS: ADMIT Hospitalist; ATTEND Hospitalist
DX: L03.116 Cellulitis of left lower limb (principal); U07.1 COVID-19; L97.829 Non-pressure chronic ulcer of other part of left lower leg with unspecified severity; E11.621 Type 2 diabetes mellitus with foot ulcer; N18.31 Chronic kidney disease, stage 3a; I12.9 Hypertensive chronic kidney disease with stage 1 through stage 4 chronic kidney disease, or unspecified chronic kidney disease; E83.42 Hypomagnesemia; D69.6 Thrombocytopenia, unspecified; I25.10 Atherosclerotic heart disease of native coronary artery without angina pectoris; E78.5 Hyperlipidemia, unspecified; F17.210 Nicotine dependence, cigarettes, uncomplicated; E11.22 Type 2 diabetes mellitus with diabetic chronic kidney disease; R53.81 Other malaise; L02.429 Furuncle of limb, unspecified; E11.51 Type 2 diabetes mellitus with diabetic peripheral angiopathy without gangrene; L97.529 Non-pressure chronic ulcer of other part of left foot with unspecified severity; E66.9 Obesity, unspecified; E78.00 Pure hypercholesterolemia, unspecified; Z68.26 Body mass index [BMI] 26.0-26.9, adult; Z79.82 Long term (current) use of aspirin; Z79.84 Long term (current) use of oral hypoglycemic drugs; Z95.5 Presence of coronary angioplasty implant and graft; Z95.1 Presence of aortocoronary bypass graft; Z79.899 Other long term (current) drug therapy; Z83.3 Family history of diabetes mellitus; Z82.49 Family history of ischemic heart disease and other diseases of the circulatory system
CPT/HCPCS: 36415; 71045; 73590; 73630; 75635; 80048; 80053; 80061; 80202; 82550; 82728; 82948; 83036; 83605; 83615; 83735; 83874; 84145; 84484; 85025; 85027; 85378; 85610; 85651; 86140; 87040; 87070; 87076; 87077; 87186; 87426; 87486; 87581; 87633; 87798; 93005; 93925; 93970; G0378; J0690; J0696; J1650; J1815; J2405; J2543; J3370; J3475; J7030; J7050; Q9967

== ENCOUNTER 2021-09-05 23:57 | Emergency (ER) | payer MEDICARE ==
[~2021-09-05 23:57] MED LIST changes: +CILO100T PO; -CLOP75TA14 PO; +ISOS20TA85 PO
[2021-09-06] MEDS ORDERED: 0.9% NACL 500ML IV.SOLN 500 ML IV ONE (00:30)
[2021-09-06 00:53] LABS: BASOPHILS % (AUTO) 0.3 % (0.0-5.0); EOSINOPHILS % (AUTO) 1.4 % (0.0-8.0); HEMATOCRIT 36.8 % (42-54); LYMPHOCYTES % (AUTO) 35.2 % (21.0-51.0); MEAN CORPUSCULAR HEMOGLOBIN 30.6 pg (27.0-33.0); MEAN CORPUSCULAR HGB CONC 32.6 g/dL (32.0-36.0); MEAN CORPUSCULAR VOLUME 93.9 fL (79-99); MONOCYTES % (AUTO) 9.1 % (3.0-13.0); NEUTROPHILS % (AUTO) 53.6 % (40.0-77.0); PLATELET COUNT (AUTO) 94 K/uL (130-400); RED BLOOD CELL COUNT(AUTO) 3.92 MIL/uL (4.50-6.20); RED CELL DISTRIBUTION WIDTH 12.8 % (11.0-15.5); WHITE BLOOD COUNT (AUTO) 7.2 K/uL (4.8-10.8)
[2021-09-06 01:03] LABS: APPEARANCE,URINE Cloudy (CLEAR); BILIRUBIN,URINE Negative (NEGATIVE); COLOR,URINE Yellow (YELLOW); GLUCOSE, URINE (UA) >=1000 mg/dL (NEGATIVE); KETONES,URINE Negative (NEGATIVE); LEUKOCYTE ESTERASE ,URINE Large (NEGATIVE); NITRATE,URINE Negative (NEGATIVE); OCCULT BLOOD,URINE Nonhemolyzed Trace (NEGATIVE); PH,URINE 5.5 (5.0-8.0); PROTEIN,URINE Trace mg/dL (NEGATIVE)
[2021-09-06 01:05] LABS: CREATININE 1.6 mg/dL (0.5-1.5); POTASSIUM 5.1 mmol/L (3.5-5.1)
[2021-09-06 01:07] LABS: BACTERIA,URINE Many /HPF (None Seen); MUCUS,URINE Few LPF (None Seen); WBC,URINE TNTC /HPF (0-1); YEAST,URINE BUDDING Many /HPF (None Seen)
[2021-09-06 01:10] LABS: ALBUMIN 2.8 g/dL (3.5-5.0); BILIRUBIN,TOTAL 0.2 mg/dL (0.2-1.0); MAGNESIUM 1.8 mg/dL (1.80-2.40); TOTAL PROTEIN, SERUM 7.8 g/dL (6.0-8.3)
[2021-09-06 01:34] VITALS: BP 155/81
[2021-09-06] MEDS ORDERED: CEPH500B PO (01:50)
[2021-09-06] MEDS ORDERED: FLUCONAZOLE 100 MG TAB PO ONE (02:00)
[2021-09-06] MEDS ORDERED: CEFTRIAXONE 1G VIAL IVP ONE (02:00)
== END 2021-09-06 02:26 | disposition home or self-care (01) ==
LOC: EDH 23:57
DX: N39.0 Urinary tract infection, site not specified (principal); E86.9 Volume depletion, unspecified; I11.0 Hypertensive heart disease with heart failure; I25.10 Atherosclerotic heart disease of native coronary artery without angina pectoris; E10.9 Type 1 diabetes mellitus without complications; E78.00 Pure hypercholesterolemia, unspecified; Z95.0 Presence of cardiac pacemaker; Z72.0 Tobacco use; Z79.82 Long term (current) use of aspirin; Z79.84 Long term (current) use of oral hypoglycemic drugs; Z79.899 Other long term (current) drug therapy
CPT/HCPCS: 36415; 71045; 80053; 81001; 82550; 82948; 83735; 84484; 85025; 87088; 93005; 96374; 99285; J0696

== ENCOUNTER 2021-10-02 20:41 | Emergency (ER) | payer MEDICARE ==
[~2021-10-02] VITALS: Ht 172.7 cm; Wt 78.5 kg
[~2021-10-02 20:41] MED LIST changes: +CEPH500B PO
[2021-10-02 21:43] LABS: BASOPHILS % (AUTO) 0.3 % (0.0-5.0); EOSINOPHILS % (AUTO) 0.8 % (0.0-8.0); HEMATOCRIT 32.9 % (42-54); LYMPHOCYTES % (AUTO) 27.9 % (21.0-51.0); MEAN CORPUSCULAR HEMOGLOBIN 30.1 pg (27.0-33.0); MEAN CORPUSCULAR HGB CONC 31.9 g/dL (32.0-36.0); MEAN CORPUSCULAR VOLUME 94.3 fL (79-99); MONOCYTES % (AUTO) 7.8 % (3.0-13.0); NEUTROPHILS % (AUTO) 62.7 % (40.0-77.0); PLATELET COUNT (AUTO) 177 K/uL (130-400); RED BLOOD CELL COUNT(AUTO) 3.49 MIL/uL (4.50-6.20); RED CELL DISTRIBUTION WIDTH 13.3 % (11.0-15.5); WHITE BLOOD COUNT (AUTO) 6.6 K/uL (4.8-10.8)
[2021-10-02] MEDS ORDERED: 0.9%NACL 1000ML 1,000 ML IV ONE ×2 (21:47→22:30)
[2021-10-02 22:02] LABS: CREATININE 1.3 mg/dL (0.5-1.5); POTASSIUM 4.2 mmol/L (3.5-5.1)
[2021-10-02 22:07] LABS: BILIRUBIN,TOTAL 0.2 mg/dL (0.2-1.0); TOTAL PROTEIN, SERUM 7.7 g/dL (6.0-8.3)
[2021-10-02] MEDS ORDERED: AMOX1TAB16 PO (22:27)
[2021-10-02] MEDS ORDERED: AMPICILLIN/SULBAC 1.5GM VIAL ONE (22:28)
[2021-10-02] MEDS ORDERED: 0.9%NACL 100ML 100 ML ONE (22:29)
[2021-10-02] MEDS ORDERED: UNASYN 3GM VIAL IV ONE (22:30)
[2021-10-02] MEDS ORDERED: AMP/SULBAC 3GM+NS 100ML 100 ML IV ONE (22:30)
[2021-10-02 23:06] VITALS: BP 142/68
[2021-10-19] MEDS ORDERED: Isosorbide Mono 60MG Sr Tab PO (15:29)
[2021-10-19] MEDS ORDERED: ATOR20TA65 PO (15:29)
== END 2021-10-02 23:05 | disposition home or self-care (01) ==
LOC: EDH 20:41
DX: E11.621 Type 2 diabetes mellitus with foot ulcer (principal); L97.529 Non-pressure chronic ulcer of other part of left foot with unspecified severity; E78.00 Pure hypercholesterolemia, unspecified; I10 Essential (primary) hypertension; F17.200 Nicotine dependence, unspecified, uncomplicated; Z79.82 Long term (current) use of aspirin; Z79.84 Long term (current) use of oral hypoglycemic drugs; Z79.899 Other long term (current) drug therapy; Z95.1 Presence of aortocoronary bypass graft
CPT/HCPCS: 36415; 73630; 80053; 83605; 85025; 87040 ×2; 96361; 96365; 99284; J0295; J7030

== ENCOUNTER 2021-11-29 18:52 | Inpatient (IN) | payer MEDICARE ==
[~2021-11-29] VITALS: Ht 172.7 cm; Wt 68.0 kg
[~2021-11-29 18:52] MED LIST changes: +ATOR20TA65 PO; -ATOR40TA71 PO; -CEPH500B PO; -CILO100T PO; -ISOS20TA85 PO; +Isosorbide Mono 60MG Sr Tab PO
[2021-11-29] MEDS ORDERED: 0.9%NACL 1000ML 2,052 ML IV ONE ×3 (19:30→20:30)
[2021-11-29] MEDS ORDERED: ACETAMINOPHEN 500 MG TABLET PO ONE (19:30)
[2021-11-29] MEDS ORDERED: ZOSYN 3.375GM +NS 50ML IV SCH (19:30)
[2021-11-29] MEDS ORDERED: VANCOMYCIN 1G VIAL IVPB ONE (19:30)
[2021-11-29 19:33] LABS: BASOPHILS % (AUTO) 0.3 % (0.0-5.0); EOSINOPHILS % (AUTO) 0.5 % (0.0-8.0); HEMATOCRIT 30.1 % (42-54); LYMPHOCYTES % (AUTO) 14.4 % (21.0-51.0); MEAN CORPUSCULAR HEMOGLOBIN 30.3 pg (27.0-33.0); MEAN CORPUSCULAR HGB CONC 31.9 g/dL (32.0-36.0); MONOCYTES % (AUTO) 6.2 % (3.0-13.0); NEUTROPHILS % (AUTO) 78.2 % (40.0-77.0); PLATELET COUNT (AUTO) 181 K/uL (130-400); RED BLOOD CELL COUNT(AUTO) 3.17 MIL/uL (4.50-6.20); RED CELL DISTRIBUTION WIDTH 13.6 % (11.0-15.5); WHITE BLOOD COUNT (AUTO) 11.8 K/uL (4.8-10.8)
[2021-11-29] MEDS ORDERED: 0.9%NACL 50ML 50 ML IV ONE (19:45)
[2021-11-29] MEDS ORDERED: VANCOMYCIN 1G/250ML KIT 250 ML IV ONE (20:00)
[2021-11-29 20:02] LABS: BILIRUBIN,TOTAL 0.4 mg/dL (0.2-1.0); POTASSIUM 4.5 mmol/L (3.5-5.1); TOTAL PROTEIN, SERUM 7.7 g/dL (6.0-8.3)
[2021-11-29 20:14] LABS: CRP QUANTITATIVE 186.8 mg/L (0.00-9.0)
[2021-11-29] MEDS ORDERED: VANCOMYCIN PROTOCOL PER PHARMACY IV PRN (20:30)
[2021-11-29 20:40] LABS: CREATININE 1.5 mg/dL (0.5-1.5)
[2021-11-29] MEDS: 0.9%NACL 1000ML 1,000 ML IV SCH (22:01)
[2021-11-29] MEDS: MORPHINE 4 MG SYG IV PRN (22:24)
[2021-11-29 22:33] LABS: APPEARANCE,URINE SLIGHTLY CLOUDY (CLEAR); BILIRUBIN,URINE Negative (NEGATIVE); COLOR,URINE Yellow (YELLOW); GLUCOSE, URINE (UA) 500 mg/dL (NEGATIVE); KETONES,URINE Negative (NEGATIVE); LEUKOCYTE ESTERASE ,URINE Moderate (NEGATIVE); NITRATE,URINE Negative (NEGATIVE); OCCULT BLOOD,URINE Negative (NEGATIVE); PROTEIN,URINE POS 1+ mg/dL (NEGATIVE)
[2021-11-29 22:44] LABS: BACTERIA,URINE Few /HPF (None Seen)
[2021-11-29 22:45] LABS: AMORPHOUS SEDIMENT,UR Few /LPF (None Seen); SQUAMOUS EPITHELIAL CELL,UR 0-2 /HPF (0-2)
[2021-11-30 00:05] VITALS: BP 142/61
[2021-11-30] MEDS ORDERED: GLIM4TAB36 PO (00:27)
[2021-11-30] MEDS ORDERED: LISI20TA24 PO (00:29)
[2021-11-30] MEDS ORDERED: DOXY-336 PO (00:33)
[2021-11-30] MEDS ORDERED: CHOLEST (00:55)
[2021-11-30] MEDS ORDERED: ACET-2079 PO (00:57)
[2021-11-30 03:58] VITALS: BP 105/49
[2021-11-30] MEDS: ZOSYN 3.375GM+NS 50ML 50 ML IV SCH ×3 (04:28→20:34)
[2021-11-30 05:09] LABS: BASOPHILS % (AUTO) 0.1 % (0.0-5.0); EOSINOPHILS % (AUTO) 1.1 % (0.0-8.0); HEMATOCRIT 26.3 % (42-54); LYMPHOCYTES % (AUTO) 13.6 % (21.0-51.0); MEAN CORPUSCULAR HEMOGLOBIN 29.3 pg (27.0-33.0); MEAN CORPUSCULAR HGB CONC 30.8 g/dL (32.0-36.0); MEAN CORPUSCULAR VOLUME 95.3 fL (79-99); MONOCYTES % (AUTO) 5.8 % (3.0-13.0); NEUTROPHILS % (AUTO) 78.9 % (40.0-77.0); PLATELET COUNT (AUTO) 146 K/uL (130-400); RED BLOOD CELL COUNT(AUTO) 2.76 MIL/uL (4.50-6.20); RED CELL DISTRIBUTION WIDTH 13.6 % (11.0-15.5); WHITE BLOOD COUNT (AUTO) 8.8 K/uL (4.8-10.8)
[2021-11-30 05:16] LABS: INR 1.14 (0.85-1.15); PROTHROMBIN TIME 12.3 SEC (9.6-11.6)
[2021-11-30 05:17] LABS: PARTIAL THROMBOPLASTIN TIME 31.7 SEC (26.3-35.5)
[2021-11-30 05:18] LABS: CREATININE 1.3 mg/dL (0.5-1.5); MAGNESIUM 1.1 mg/dL (1.80-2.40); PHOSPHORUS 2.4 mg/dL (2.5-4.9); POTASSIUM 3.9 mmol/L (3.5-5.1)
[2021-11-30] MEDS ORDERED: MAGNESIUM 2GM PREMIX 50ML 50 ML IV SCH (06:00)
[2021-11-30 06:41] LABS: HEMOGLOBIN A1C 6.5 % (4.0-6.0)
[2021-11-30 07:29] VITALS: BP 112/49
[2021-11-30] MEDS: VANCOMYCIN 1G/250ML KIT 250 ML IV SCH (08:07)
[2021-11-30] MEDS ORDERED: FAMOTIDINE 20MG VIAL IV SCH (09:00)
[2021-11-30] MEDS: 0.9%NACL 1000ML 1,000 ML IV SCH (09:50)
[2021-11-30 11:30] VITALS: BP 111/57
[2021-11-30] MEDS ORDERED: 0.9%NACL 50ML 50 ML IV ONE (11:41)
[2021-11-30] MEDS: MORPHINE 2 MG SYG IV PRN ×3 (11:55→22:30)
[2021-11-30] MEDS: ONDANSETRON 4MG INJ IV PRN (14:56)
[2021-11-30 15:09] VITALS: BP 154/77
[2021-11-30 19:51] VITALS: BP 145/72
[2021-12-01] VITALS (7 sets, daily range): BP systolic 121–169; BP diastolic 55–84
[2021-12-01] MEDS: ZOSYN 3.375GM+NS 50ML 50 ML IV SCH ×3 (03:27→19:37)
[2021-12-01 06:13] LABS: BASOPHILS % (AUTO) 0.2 % (0.0-5.0); EOSINOPHILS % (AUTO) 0.7 % (0.0-8.0); HEMATOCRIT 26.4 % (42-54); LYMPHOCYTES % (AUTO) 13.3 % (21.0-51.0); MEAN CORPUSCULAR HEMOGLOBIN 29.5 pg (27.0-33.0); MEAN CORPUSCULAR HGB CONC 31.8 g/dL (32.0-36.0); MEAN CORPUSCULAR VOLUME 92.6 fL (79-99); MONOCYTES % (AUTO) 5.9 % (3.0-13.0); NEUTROPHILS % (AUTO) 79.3 % (40.0-77.0); PLATELET COUNT (AUTO) 171 K/uL (130-400); RED BLOOD CELL COUNT(AUTO) 2.85 MIL/uL (4.50-6.20); RED CELL DISTRIBUTION WIDTH 13.4 % (11.0-15.5); WHITE BLOOD COUNT (AUTO) 11.4 K/uL (4.8-10.8)
[2021-12-01 06:37] LABS: ALBUMIN 2.5 g/dL (3.5-5.0); BILIRUBIN,TOTAL 0.6 mg/dL (0.2-1.0); CREATININE 1.3 mg/dL (0.5-1.5); MAGNESIUM 1.4 mg/dL (1.80-2.40); POTASSIUM 4.1 mmol/L (3.5-5.1); TOTAL PROTEIN, SERUM 7.2 g/dL (6.0-8.3)
[2021-12-01] MEDS ORDERED: 0.9%NACL 1000ML 1,000 ML IV SCH ×2 (09:00)
[2021-12-01] MEDS ORDERED: ENOXAPARIN SODIUM 40 MG/0.4 ML SYRINGE SQ SCH (09:00)
[2021-12-01] MEDS: ENOXAPARIN SODIUM 40 MG/0.4 ML SYRINGE SQ SCH (09:38)
[2021-12-01] MEDS: ASPIRIN 81 MG EC TAB PO SCH (09:38)
[2021-12-01] MEDS: PANTOPRAZOLE 40 MG TAB DR PO SCH (09:39)
[2021-12-01] MEDS: VANCOMYCIN 1G/250ML KIT 250 ML IV SCH (09:39)
[2021-12-01] MEDS: MAGNESIUM 2GM PREMIX 50ML 50 ML IV SCH ×2 (09:40→14:12)
[2021-12-01] MEDS: METOPROLOL SUCCINATE 50 MG TAB.SR.24H PO SCH (09:40)
[2021-12-01 09:47] LABS: % IRON SATURATION 6.8 % (30-44)
[2021-12-01] MEDS ORDERED: 0.9%NACL 50ML 50 ML IV ONE (11:14)
[2021-12-01] MEDS: ACETAMINOPHEN 325 MG TAB PO PRN (11:37)
[2021-12-01] MEDS: INSULIN HUMULIN R 100 UNIT/ML 3ML SQ SCH ×3 (11:38→20:47)
[2021-12-01] MEDS ORDERED: POLYETHYLENE GLYCOL 3350 17 GM POWD.PACK PO ONE (17:00)
[2021-12-01] MEDS: FUROSEMIDE 20MG VIAL IV SCH (19:37)
[2021-12-01 19:43] LABS: CREATININE 1.4 mg/dL (0.5-1.5); MAGNESIUM 2.3 mg/dL (1.80-2.40); POTASSIUM 3.8 mmol/L (3.5-5.1)
[2021-12-01] MEDS: ATORVASTATIN 20 MG TABLET PO SCH (20:35)
[2021-12-01] MEDS: DOCUSATE SODIUM 100 MG CAP PO SCH (20:35)
[2021-12-02] VITALS (11 sets, daily range): BP systolic 114–149; BP diastolic 56–98
[2021-12-02] MEDS: MORPHINE 4 MG SYG IV PRN ×2 (00:07→10:03)
[2021-12-02] MEDS: ZOSYN 3.375GM+NS 50ML 50 ML IV SCH (04:17)
[2021-12-02 06:03] LABS: BASOPHILS % (AUTO) 0.2 % (0.0-5.0); EOSINOPHILS % (AUTO) 0.6 % (0.0-8.0); HEMATOCRIT 26.8 % (42-54); LYMPHOCYTES % (AUTO) 15.1 % (21.0-51.0); MEAN CORPUSCULAR HEMOGLOBIN 30.1 pg (27.0-33.0); MEAN CORPUSCULAR HGB CONC 31.7 g/dL (32.0-36.0); MONOCYTES % (AUTO) 7.6 % (3.0-13.0); PLATELET COUNT (AUTO) 179 K/uL (130-400); RED BLOOD CELL COUNT(AUTO) 2.82 MIL/uL (4.50-6.20); RED CELL DISTRIBUTION WIDTH 13.6 % (11.0-15.5); WHITE BLOOD COUNT (AUTO) 12.1 K/uL (4.8-10.8)
[2021-12-02 06:22] LABS: ALBUMIN 2.3 g/dL (3.5-5.0); BILIRUBIN,TOTAL 0.5 mg/dL (0.2-1.0); CREATININE 1.4 mg/dL (0.5-1.5); POTASSIUM 4.3 mmol/L (3.5-5.1)
[2021-12-02 06:43] LABS: B-TYPE NATRIURETIC PEPTIDE 1510 pg/mL (0-100)
[2021-12-02] MEDS: INSULIN HUMULIN R 100 UNIT/ML 3ML SQ SCH ×3 (07:30→20:37)
[2021-12-02] MEDS: PANTOPRAZOLE 40 MG TAB DR PO SCH (07:30)
[2021-12-02] MEDS ORDERED: MEROPENEM 1 GM VIAL IVP SCH (08:00)
[2021-12-02] MEDS: ENOXAPARIN SODIUM 40 MG/0.4 ML SYRINGE SQ SCH (09:00)
[2021-12-02] MEDS: FUROSEMIDE 20MG VIAL IV SCH ×2 (09:58→20:35)
[2021-12-02] MEDS: METOPROLOL SUCCINATE 50 MG TAB.SR.24H PO SCH (10:00)
[2021-12-02] MEDS: VANCOMYCIN 1G/250ML KIT 250 ML IV SCH (10:00)
[2021-12-02] MEDS: DOCUSATE SODIUM 100 MG CAP PO SCH ×2 (10:00→20:34)
[2021-12-02] MEDS: ASPIRIN 81 MG EC TAB PO SCH (10:00)
[2021-12-02] MEDS ORDERED: LIDOCAINE HCL 1% 20 ML VIAL ONE (11:26)
[2021-12-02] MEDS ORDERED: HEPARIN 10,000 UNIT/10ML (1,000 UNIT/ML) VIAL ONE (11:27)
[2021-12-02] MEDS ORDERED: IOHEXOL 350 MG/ML 100ML INFUS..BTL IV ONE (11:27)
[2021-12-02] MEDS ORDERED: FENTANYL CITRATE PF 50 MCG/1 ML 2ML VIAL ONE (11:27)
[2021-12-02] MEDS ORDERED: MIDAZOLAM HCL 1 MG/ML 2ML VIAL ONE (11:27)
[2021-12-02] MEDS ORDERED: NITROGLYCERIN 50MG VIAL ONE (11:27)
[2021-12-02] MEDS ORDERED: IODIXANOL 320 MG/ML 100 ML VIAL ONE (11:37)
[2021-12-02] MEDS ORDERED: 0.9% NACL 500ML IV.SOLN 500 ML IV SCH (14:00)
[2021-12-02] MEDS: MEROPENEM 500 MG VIAL IVP SCH ×2 (14:39→21:51)
[2021-12-02] MEDS ORDERED: COMPOUND IV MISC 1 EACH IVSOLN MISC PRN (17:00)
[2021-12-02] MEDS: ATORVASTATIN 20 MG TABLET PO SCH (20:34)
[2021-12-03] VITALS (26 sets, daily range): BP systolic 86–159; BP diastolic 43–91
[2021-12-03] MEDS: MORPHINE 4 MG SYG IV PRN (03:48)
[2021-12-03] MEDS: INSULIN HUMULIN R 100 UNIT/ML 3ML SQ SCH ×4 (05:00→22:07)
[2021-12-03 05:14] LABS: HEMATOCRIT 27.3 % (42-54); MEAN CORPUSCULAR HEMOGLOBIN 29.1 pg (27.0-33.0); MEAN CORPUSCULAR HGB CONC 32.2 g/dL (32.0-36.0); MEAN CORPUSCULAR VOLUME 90.4 fL (79-99); RED BLOOD CELL COUNT(AUTO) 3.02 MIL/uL (4.50-6.20); RED CELL DISTRIBUTION WIDTH 13.3 % (11.0-15.5); WHITE BLOOD COUNT (AUTO) 8.5 K/uL (4.8-10.8)
[2021-12-03 05:32] LABS: CREATININE 1.3 mg/dL (0.5-1.5); MAGNESIUM 1.6 mg/dL (1.80-2.40); POTASSIUM 3.5 mmol/L (3.5-5.1)
[2021-12-03] MEDS: MEROPENEM 500 MG VIAL IVP SCH ×3 (05:32→22:16)
[2021-12-03] MEDS: FUROSEMIDE 20MG VIAL IV SCH ×2 (06:28→22:15)
[2021-12-03] MEDS: PANTOPRAZOLE 40 MG TAB DR PO SCH (06:28)
[2021-12-03] MEDS ORDERED: KCL 20 MEQ ERTAB PO ONE (08:58)
[2021-12-03] MEDS: DOCUSATE SODIUM 100 MG CAP PO SCH ×2 (09:00→22:16)
[2021-12-03] MEDS: ENOXAPARIN SODIUM 40 MG/0.4 ML SYRINGE SQ SCH (09:00)
[2021-12-03] MEDS: ASPIRIN 81 MG EC TAB PO SCH (09:13)
[2021-12-03] MEDS: METOPROLOL SUCCINATE 50 MG TAB.SR.24H PO SCH (09:13)
[2021-12-03] MEDS: MAGNESIUM 2GM PREMIX 50ML 50 ML IV SCH (09:14)
[2021-12-03] MEDS: IRON SUCROSE COMPLEX 300 MG in 0.9%NACL 50ML 50 ML IV SCH (09:14)
[2021-12-03] MEDS ORDERED: HEPARIN 10,000 UNIT/10ML (1,000 UNIT/ML) VIAL ONE (13:04)
[2021-12-03] MEDS ORDERED: IODIXANOL 320 MG/ML 100 ML VIAL ONE (13:04)
[2021-12-03] MEDS ORDERED: NITROGLYCERIN 50MG VIAL ONE (13:04)
[2021-12-03] MEDS ORDERED: NICARDIPINE 25MG INJ IV ONE (13:04)
[2021-12-03] MEDS ORDERED: LIDOCAINE HCL 400MG/20ML VIAL ONE (13:05)
[2021-12-03] MEDS ORDERED: ROCURONIUM 10MG/1ML SYR 10 MG/ML ML ONE (13:16)
[2021-12-03] MEDS ORDERED: SUCCINYLCHOLINE 200MG/10ML SYR ONE (13:16)
[2021-12-03] MEDS ORDERED: MIDAZOLAM HCL 1 MG/ML 2ML VIAL ONE (13:16)
[2021-12-03] MEDS ORDERED: PROPOFOL 10 MG/ML 20ML VIAL IV ONE (13:16)
[2021-12-03] MEDS ORDERED: LIDOCAINE PF 100MG/5ML (2%) SYRINGE 5ML ONE (13:16)
[2021-12-03] MEDS ORDERED: FENTANYL CITRATE PF 50 MCG/1 ML 2ML VIAL ONE (13:17)
[2021-12-03] MEDS ORDERED: NOREPINEPHRINE BITARTRATE 1 MG/1 ML ML IV ONE (14:09)
[2021-12-03] MEDS ORDERED: GLYCOPYRROLATE 0.2 MG/ML 5 ML VIAL ONE (14:40)
[2021-12-03] MEDS ORDERED: NEOSTIGMINE 5MG/5ML SYR IV ONE (14:40)
[2021-12-03] MEDS ORDERED: 0.9%NACL 1000ML 1,000 ML IV SCH (15:00)
[2021-12-03 16:53] LABS: ABG BASE EXCESS -3.6 mmol/L (-2.0-3.0); ABG HCO3 21.2 mmol/L (21.0-28.0); ABG OXYGEN SATURATION 88.6 % (95.0-99.0); ABG PCO2 38 mmHg (35-48)
[2021-12-03] MEDS: ATORVASTATIN 20 MG TABLET PO SCH (22:16)
[2021-12-04] VITALS (7 sets, daily range): BP systolic 106–152; BP diastolic 54–97
[2021-12-04] MEDS: MORPHINE 4 MG SYG IV PRN ×2 (01:22→05:02)
[2021-12-04] MEDS: ACETAMINOPHEN 325 MG TAB PO PRN (03:43)
[2021-12-04 03:48] LABS: HEMATOCRIT 30.7 % (42-54); MEAN CORPUSCULAR HGB CONC 31.6 g/dL (32.0-36.0); MEAN CORPUSCULAR VOLUME 91.6 fL (79-99); RED BLOOD CELL COUNT(AUTO) 3.35 MIL/uL (4.50-6.20); RED CELL DISTRIBUTION WIDTH 13.4 % (11.0-15.5); WHITE BLOOD COUNT (AUTO) 8.7 K/uL (4.8-10.8)
[2021-12-04 04:19] LABS: CREATININE 1.4 mg/dL (0.5-1.5); POTASSIUM 3.5 mmol/L (3.5-5.1)
[2021-12-04] MEDS: MEROPENEM 500 MG VIAL IVP SCH ×3 (05:52→21:53)
[2021-12-04] MEDS: FUROSEMIDE 20MG VIAL IV SCH ×2 (06:18→21:53)
[2021-12-04] MEDS: INSULIN HUMULIN R 100 UNIT/ML 3ML SQ SCH ×4 (06:20→22:11)
[2021-12-04] MEDS: ASPIRIN 81 MG EC TAB PO SCH (09:17)
[2021-12-04] MEDS: ENOXAPARIN SODIUM 40 MG/0.4 ML SYRINGE SQ SCH (09:17)
[2021-12-04] MEDS: METOPROLOL SUCCINATE 50 MG TAB.SR.24H PO SCH (09:17)
[2021-12-04] MEDS: DOCUSATE SODIUM 100 MG CAP PO SCH ×2 (09:18→21:53)
[2021-12-04] MEDS: IRON SUCROSE COMPLEX 300 MG in 0.9%NACL 50ML 50 ML IV SCH (09:20)
[2021-12-04] MEDS: PANTOPRAZOLE 40 MG TAB DR PO SCH (09:20)
[2021-12-04] MEDS: MORPHINE 2 MG SYG IV PRN (17:59)
[2021-12-04] MEDS ORDERED: KETOROLAC 30MG VIAL (30MG/ML) IVP ONE (19:30)
[2021-12-04] MEDS: ATORVASTATIN 20 MG TABLET PO SCH (21:53)
[2021-12-04] MEDS ORDERED: KETOROLAC 30MG VIAL (30MG/ML) IVP SCH (22:00)
[2021-12-05 04:31] VITALS: BP 141/55
[2021-12-05 04:47] LABS: HEMATOCRIT 28.8 % (42-54); MEAN CORPUSCULAR HEMOGLOBIN 29.2 pg (27.0-33.0); MEAN CORPUSCULAR HGB CONC 31.9 g/dL (32.0-36.0); MEAN CORPUSCULAR VOLUME 91.4 fL (79-99); RED BLOOD CELL COUNT(AUTO) 3.15 MIL/uL (4.50-6.20); RED CELL DISTRIBUTION WIDTH 13.3 % (11.0-15.5); WHITE BLOOD COUNT (AUTO) 9.5 K/uL (4.8-10.8)
[2021-12-05 05:08] LABS: CREATININE 1.4 mg/dL (0.5-1.5); POTASSIUM 3.6 mmol/L (3.5-5.1)
[2021-12-05] MEDS: FUROSEMIDE 20MG VIAL IV SCH ×2 (06:26→20:30)
[2021-12-05] MEDS: PANTOPRAZOLE 40 MG TAB DR PO SCH (06:26)
[2021-12-05] MEDS: MEROPENEM 500 MG VIAL IVP SCH ×3 (06:26→22:02)
[2021-12-05] MEDS: INSULIN HUMULIN R 100 UNIT/ML 3ML SQ SCH ×4 (06:28→22:02)
[2021-12-05 06:50] VITALS: BP 152/60
[2021-12-05] MEDS: ACETAMINOPHEN 325 MG TAB PO PRN (08:52)
[2021-12-05] MEDS: ASPIRIN 81 MG EC TAB PO SCH (08:52)
[2021-12-05] MEDS: METOPROLOL SUCCINATE 50 MG TAB.SR.24H PO SCH (08:52)
[2021-12-05] MEDS: DOCUSATE SODIUM 100 MG CAP PO SCH ×2 (08:54→20:30)
[2021-12-05] MEDS: ENOXAPARIN SODIUM 40 MG/0.4 ML SYRINGE SQ SCH (08:54)
[2021-12-05] MEDS: IRON SUCROSE COMPLEX 300 MG in 0.9%NACL 50ML 50 ML IV SCH (08:55)
[2021-12-05 11:16] VITALS: BP 134/68
[2021-12-05 16:00] VITALS: BP 136/78
[2021-12-05 19:25] VITALS: BP 127/71
[2021-12-05] MEDS: ATORVASTATIN 20 MG TABLET PO SCH (20:30)
[2021-12-05] MEDS: MORPHINE 2 MG SYG IVP PRN (20:31)
[2021-12-05] MEDS: KETOROLAC 15MG/ML VIAL (15MG/ML) IV PRN (22:58)
[2021-12-05 23:34] VITALS: BP 94/55
[2021-12-06] VITALS (19 sets, daily range): BP systolic 105–152; BP diastolic 48–71
[2021-12-06] MEDS: MORPHINE 2 MG SYG IVP PRN ×3 (02:26→20:48)
[2021-12-06 03:27] LABS: HEMATOCRIT 28.5 % (42-54); MEAN CORPUSCULAR HEMOGLOBIN 29.3 pg (27.0-33.0); MEAN CORPUSCULAR HGB CONC 32.3 g/dL (32.0-36.0); MEAN CORPUSCULAR VOLUME 90.8 fL (79-99); RED BLOOD CELL COUNT(AUTO) 3.14 MIL/uL (4.50-6.20); RED CELL DISTRIBUTION WIDTH 13.4 % (11.0-15.5)
[2021-12-06 03:36] LABS: ALBUMIN 2.4 g/dL (3.5-5.0); BILIRUBIN,TOTAL 0.5 mg/dL (0.2-1.0); CREATININE 1.4 mg/dL (0.5-1.5); INR 1.05 (0.85-1.15); MAGNESIUM 1.5 mg/dL (1.80-2.40); PROTHROMBIN TIME 11.4 SEC (9.6-11.6); TOTAL PROTEIN, SERUM 7.4 g/dL (6.0-8.3)
[2021-12-06 03:37] LABS: PARTIAL THROMBOPLASTIN TIME 32.3 SEC (26.3-35.5)
[2021-12-06] MEDS ORDERED: POTASSIUM CHLORIDE 10% ELIXIR 20 MEQ/15 ML UDCUP PO PRN (04:00)
[2021-12-06] MEDS: MAGNESIUM 2GM PREMIX 50ML 50 ML IV SCH (04:01)
[2021-12-06] MEDS: KCL 20 MEQ ERTAB PO PRN ×3 (04:45→08:16)
[2021-12-06] MEDS: KETOROLAC 15MG/ML VIAL (15MG/ML) IV PRN ×2 (05:16→23:11)
[2021-12-06] MEDS: MEROPENEM 500 MG VIAL IVP SCH ×3 (05:17→22:07)
[2021-12-06] MEDS: PANTOPRAZOLE 40 MG TAB DR PO SCH (07:30)
[2021-12-06] MEDS: INSULIN HUMULIN R 100 UNIT/ML 3ML SQ SCH ×4 (07:30→20:36)
[2021-12-06] MEDS: DOCUSATE SODIUM 100 MG CAP PO SCH ×2 (07:43→20:37)
[2021-12-06] MEDS: ASPIRIN 81 MG EC TAB PO SCH (07:43)
[2021-12-06] MEDS: ENOXAPARIN SODIUM 40 MG/0.4 ML SYRINGE SQ SCH (07:43)
[2021-12-06] MEDS: METOPROLOL SUCCINATE 50 MG TAB.SR.24H PO SCH (07:43)
[2021-12-06] MEDS: FUROSEMIDE 20MG VIAL IV SCH (08:10)
[2021-12-06] MEDS: ONDANSETRON 4MG INJ IV PRN (08:14)
[2021-12-06] MEDS ORDERED: ROPIVACAINE 0.5% 5MG/ML 30ML IJ ONE (13:00)
[2021-12-06] MEDS ORDERED: DEXAMETHASONE SOD PHOSPHATE 10MG/ML 1ML VIAL ONE (13:22)
[2021-12-06] MEDS ORDERED: GLYCOPYRROLATE 1 MG/5 ML SYRINGE ONE (13:23)
[2021-12-06] MEDS ORDERED: SUCCINYLCHOLINE CHLORIDE 20 MG/ML 10 ML VIAL ONE (13:23)
[2021-12-06] MEDS ORDERED: ROCURONIUM 10MG/1ML SYR 10 MG/ML ML ONE (13:23)
[2021-12-06] MEDS ORDERED: MIDAZOLAM HCL 1 MG/ML 2ML VIAL ONE (13:23)
[2021-12-06] MEDS ORDERED: ONDANSETRON 4MG INJ ONE (13:23)
[2021-12-06] MEDS ORDERED: FENTANYL CITRATE PF 50 MCG/1 ML 2ML VIAL ONE (13:23)
[2021-12-06] MEDS ORDERED: PROPOFOL 10 MG/ML 20ML VIAL IV ONE (13:23)
[2021-12-06] MEDS ORDERED: LIDOCAINE PF 100MG/5ML (2%) SYRINGE 5ML ONE (13:23)
[2021-12-06] MEDS ORDERED: NEOSTIGMINE 5MG/5ML SYR IV ONE (13:23)
[2021-12-06] MEDS ORDERED: MEROPENEM 1 GM VIAL ONE (13:28)
[2021-12-06] MEDS ORDERED: METOPROLOL TARTRATE 1 MG/ML 5ML VIAL IV ONE (13:32)
[2021-12-06] MEDS ORDERED: 0.9%NACL 10ML VIAL ONE (19:58)
[2021-12-06] MEDS: ATORVASTATIN 20 MG TABLET PO SCH (20:37)
[2021-12-07] MEDS ORDERED: HYDROMORPHONE 1 MG INJ ONE (02:29)
[2021-12-07] MEDS ORDERED: HYDROMORPHONE 1 MG INJ IVP ONE (02:30)
[2021-12-07 03:31] VITALS: BP 158/70
[2021-12-07 03:32] LABS: HEMATOCRIT 27.6 % (42-54); MEAN CORPUSCULAR HEMOGLOBIN 30.8 pg (27.0-33.0); MEAN CORPUSCULAR HGB CONC 33.3 g/dL (32.0-36.0); MEAN CORPUSCULAR VOLUME 92.3 fL (79-99); RED BLOOD CELL COUNT(AUTO) 2.99 MIL/uL (4.50-6.20); RED CELL DISTRIBUTION WIDTH 13.6 % (11.0-15.5); WHITE BLOOD COUNT (AUTO) 11.1 K/uL (4.8-10.8)
[2021-12-07 03:43] LABS: CREATININE 1.6 mg/dL (0.5-1.5)
[2021-12-07] MEDS ORDERED: 0.9%NACL 10ML VIAL ONE (05:23)
[2021-12-07] MEDS: MEROPENEM 500 MG VIAL IVP SCH ×3 (06:14→22:13)
[2021-12-07] MEDS: INSULIN HUMULIN R 100 UNIT/ML 3ML SQ SCH ×4 (06:17→20:31)
[2021-12-07] MEDS: PANTOPRAZOLE 40 MG TAB DR PO SCH (06:20)
[2021-12-07 08:00] VITALS: BP 149/77
[2021-12-07] MEDS: ASPIRIN 81 MG EC TAB PO SCH (08:28)
[2021-12-07] MEDS: METOPROLOL SUCCINATE 50 MG TAB.SR.24H PO SCH (08:28)
[2021-12-07] MEDS: DOCUSATE SODIUM 100 MG CAP PO SCH ×2 (08:28→20:29)
[2021-12-07] MEDS: ENOXAPARIN SODIUM 40 MG/0.4 ML SYRINGE SQ SCH (08:29)
[2021-12-07] MEDS: MORPHINE 2 MG SYG IVP PRN (10:12)
[2021-12-07] MEDS: HYDROCODONE/ACETAMINOPHEN 5/325 MG TAB PO SCH ×3 (10:24→22:13)
[2021-12-07] MEDS ORDERED: HYDROCODONE/ACETAMINOPHEN 5/325 MG TAB PO PRN (10:30)
[2021-12-07 11:17] VITALS: BP 139/66
[2021-12-07 16:18] VITALS: BP 126/56
[2021-12-07] MEDS: MAGNESIUM 2GM PREMIX 50ML 50 ML IV SCH (17:54)
[2021-12-07] MEDS ORDERED: MAGNESIUM 2GM PREMIX 50ML 50 ML IV PRN (18:00)
[2021-12-07 20:08] VITALS: BP 113/63
[2021-12-07] MEDS: ATORVASTATIN 20 MG TABLET PO SCH (20:29)
[2021-12-07] MEDS: KETOROLAC 15MG/ML VIAL (15MG/ML) IV PRN (20:53)
[2021-12-07 23:53] VITALS: BP 132/63
[2021-12-08] MEDS: HYDROCODONE/ACETAMINOPHEN 5/325 MG TAB PO SCH ×4 (04:06→21:13)
[2021-12-08 04:11] LABS: HEMATOCRIT 27.3 % (42-54); MEAN CORPUSCULAR HEMOGLOBIN 29.3 pg (27.0-33.0); MEAN CORPUSCULAR HGB CONC 31.5 g/dL (32.0-36.0); MEAN CORPUSCULAR VOLUME 92.9 fL (79-99); RED BLOOD CELL COUNT(AUTO) 2.94 MIL/uL (4.50-6.20); RED CELL DISTRIBUTION WIDTH 13.8 % (11.0-15.5)
[2021-12-08 04:22] VITALS: BP 151/69
[2021-12-08 04:31] LABS: CREATININE 1.3 mg/dL (0.5-1.5); MAGNESIUM 2.4 mg/dL (1.80-2.40); POTASSIUM 4.1 mmol/L (3.5-5.1)
[2021-12-08] MEDS: MEROPENEM 500 MG VIAL IVP SCH ×3 (05:12→21:12)
[2021-12-08] MEDS: KETOROLAC 15MG/ML VIAL (15MG/ML) IV PRN (05:29)
[2021-12-08] MEDS: INSULIN HUMULIN R 100 UNIT/ML 3ML SQ SCH ×4 (07:30→22:04)
[2021-12-08 08:00] VITALS: BP 134/73
[2021-12-08] MEDS: DOCUSATE SODIUM 100 MG CAP PO SCH ×2 (08:14→21:12)
[2021-12-08] MEDS: ASPIRIN 81 MG EC TAB PO SCH (08:14)
[2021-12-08] MEDS: PANTOPRAZOLE 40 MG TAB DR PO SCH (08:14)
[2021-12-08] MEDS: POLYETHYLENE GLYCOL 3350 17 GM POWD.PACK PO SCH (08:14)
[2021-12-08] MEDS: ENOXAPARIN SODIUM 40 MG/0.4 ML SYRINGE SQ SCH (08:15)
[2021-12-08] MEDS: METOPROLOL SUCCINATE 50 MG TAB.SR.24H PO SCH (08:15)
[2021-12-08 11:31] VITALS: BP 132/62
[2021-12-08 15:31] VITALS: BP 141/69
[2021-12-08 20:12] VITALS: BP 127/61
[2021-12-08] MEDS: ATORVASTATIN 20 MG TABLET PO SCH (21:13)
[2021-12-08 23:50] VITALS: BP 137/61
[2021-12-09] MEDS: HYDROCODONE/ACETAMINOPHEN 5/325 MG TAB PO SCH ×4 (03:48→21:04)
[2021-12-09 04:25] LABS: MEAN CORPUSCULAR HGB CONC 31.3 g/dL (32.0-36.0); MEAN CORPUSCULAR VOLUME 92.6 fL (79-99); RED BLOOD CELL COUNT(AUTO) 3.24 MIL/uL (4.50-6.20); RED CELL DISTRIBUTION WIDTH 13.8 % (11.0-15.5); WHITE BLOOD COUNT (AUTO) 8.7 K/uL (4.8-10.8)
[2021-12-09 04:35] LABS: CREATININE 1.2 mg/dL (0.5-1.5); POTASSIUM 4.7 mmol/L (3.5-5.1)
[2021-12-09 04:45] VITALS: BP 150/78
[2021-12-09] MEDS: MEROPENEM 500 MG VIAL IVP SCH ×3 (05:36→21:04)
[2021-12-09] MEDS: INSULIN HUMULIN R 100 UNIT/ML 3ML SQ SCH ×4 (05:37→21:05)
[2021-12-09 08:00] VITALS: BP 130/72
[2021-12-09] MEDS: METOPROLOL SUCCINATE 50 MG TAB.SR.24H PO SCH (09:09)
[2021-12-09] MEDS: DOCUSATE SODIUM 100 MG CAP PO SCH ×2 (09:09→21:04)
[2021-12-09] MEDS: PANTOPRAZOLE 40 MG TAB DR PO SCH (09:09)
[2021-12-09] MEDS: POLYETHYLENE GLYCOL 3350 17 GM POWD.PACK PO SCH (09:09)
[2021-12-09] MEDS: ASPIRIN 81 MG EC TAB PO SCH (09:09)
[2021-12-09] MEDS: ENOXAPARIN SODIUM 40 MG/0.4 ML SYRINGE SQ SCH (09:09)
[2021-12-09 12:25] VITALS: BP 143/61
[2021-12-09 16:00] VITALS: BP 133/69
[2021-12-09 19:19] VITALS: BP_SYST 112; BP_SYST 116; BP_DIAS 46; BP_DIAS 53
[2021-12-09] MEDS: ATORVASTATIN 20 MG TABLET PO SCH (21:04)
[2021-12-09 23:11] VITALS: BP 126/60
[2021-12-10 03:27] VITALS: BP 145/67
[2021-12-10] MEDS: HYDROCODONE/ACETAMINOPHEN 5/325 MG TAB PO SCH ×5 (03:28→23:48)
[2021-12-10 03:32] LABS: BASOPHILS % (AUTO) 0.2 % (0.0-5.0); HEMATOCRIT 28.9 % (42-54); LYMPHOCYTES % (AUTO) 26.6 % (21.0-51.0); MEAN CORPUSCULAR HEMOGLOBIN 29.2 pg (27.0-33.0); MEAN CORPUSCULAR HGB CONC 31.8 g/dL (32.0-36.0); MEAN CORPUSCULAR VOLUME 91.7 fL (79-99); MONOCYTES % (AUTO) 9.3 % (3.0-13.0); NEUTROPHILS % (AUTO) 61.7 % (40.0-77.0); PLATELET COUNT (AUTO) 293 K/uL (130-400); RED BLOOD CELL COUNT(AUTO) 3.15 MIL/uL (4.50-6.20); WHITE BLOOD COUNT (AUTO) 8.2 K/uL (4.8-10.8)
[2021-12-10 03:53] LABS: ALBUMIN 2.3 g/dL (3.5-5.0); BILIRUBIN,TOTAL 0.4 mg/dL (0.2-1.0); CREATININE 1.2 mg/dL (0.5-1.5); POTASSIUM 4.3 mmol/L (3.5-5.1); TOTAL PROTEIN, SERUM 7.4 g/dL (6.0-8.3)
[2021-12-10] MEDS: MEROPENEM 500 MG VIAL IVP SCH (05:41)
[2021-12-10] MEDS: INSULIN HUMULIN R 100 UNIT/ML 3ML SQ SCH ×4 (05:42→20:47)
[2021-12-10] MEDS: PANTOPRAZOLE 40 MG TAB DR PO SCH (07:30)
[2021-12-10 08:08] VITALS: BP 100/44
[2021-12-10] MEDS: METOPROLOL SUCCINATE 50 MG TAB.SR.24H PO SCH (09:34)
[2021-12-10] MEDS: ENOXAPARIN SODIUM 40 MG/0.4 ML SYRINGE SQ SCH (09:34)
[2021-12-10] MEDS: POLYETHYLENE GLYCOL 3350 17 GM POWD.PACK PO SCH (09:34)
[2021-12-10] MEDS: DOCUSATE SODIUM 100 MG CAP PO SCH ×2 (09:34→20:45)
[2021-12-10] MEDS: ASPIRIN 81 MG EC TAB PO SCH (09:34)
[2021-12-10 11:42] VITALS: BP 99/66
[2021-12-10] MEDS: LACTULOSE 20 GM/30 ML UDCUP PO SCH ×3 (12:24→23:47)
[2021-12-10 16:04] VITALS: BP 130/71
[2021-12-10 19:22] VITALS: BP 147/72
[2021-12-10] MEDS: ATORVASTATIN 20 MG TABLET PO SCH (20:45)
[2021-12-10 22:49] VITALS: BP 119/60
[2021-12-10] MEDS: ACETAMINOPHEN 325 MG TAB PO PRN (23:52)
[2021-12-11 03:32] VITALS: BP 124/65
[2021-12-11 04:59] LABS: HEMATOCRIT 31.1 % (42-54); MEAN CORPUSCULAR HEMOGLOBIN 29.4 pg (27.0-33.0); MEAN CORPUSCULAR HGB CONC 31.2 g/dL (32.0-36.0); MEAN CORPUSCULAR VOLUME 94.2 fL (79-99); RED BLOOD CELL COUNT(AUTO) 3.3 MIL/uL (4.50-6.20); RED CELL DISTRIBUTION WIDTH 14.2 % (11.0-15.5); WHITE BLOOD COUNT (AUTO) 9.6 K/uL (4.8-10.8)
[2021-12-11 05:08] LABS: CREATININE 1.2 mg/dL (0.5-1.5); POTASSIUM 4.3 mmol/L (3.5-5.1)
[2021-12-11] MEDS: LACTULOSE 20 GM/30 ML UDCUP PO SCH ×4 (05:51→23:30)
[2021-12-11 07:00] VITALS: BP_SYST 133; BP_SYST 95; BP_DIAS 56; BP_DIAS 59
[2021-12-11] MEDS: HYDROCODONE/ACETAMINOPHEN 5/325 MG TAB PO SCH ×3 (10:22→19:31)
[2021-12-11] MEDS: POLYETHYLENE GLYCOL 3350 17 GM POWD.PACK PO SCH (10:22)
[2021-12-11] MEDS: ENOXAPARIN SODIUM 40 MG/0.4 ML SYRINGE SQ SCH (10:22)
[2021-12-11] MEDS: DOCUSATE SODIUM 100 MG CAP PO SCH ×2 (10:22→19:30)
[2021-12-11] MEDS: ASPIRIN 81 MG EC TAB PO SCH (10:22)
[2021-12-11] MEDS: PANTOPRAZOLE 40 MG TAB DR PO SCH (10:22)
[2021-12-11] MEDS: INSULIN HUMULIN R 100 UNIT/ML 3ML SQ SCH ×4 (10:24→19:32)
[2021-12-11 11:00] VITALS: BP 118/55
[2021-12-11] MEDS: METOPROLOL SUCCINATE 50 MG TAB.SR.24H PO SCH (12:09)
[2021-12-11 15:00] VITALS: BP 130/63
[2021-12-11] MEDS: ACETAMINOPHEN 325 MG TAB PO PRN (16:00)
[2021-12-11] MEDS: ATORVASTATIN 20 MG TABLET PO SCH (19:30)
[2021-12-11 19:34] VITALS: BP 122/63
[2021-12-12] MEDS: LACTULOSE 20 GM/30 ML UDCUP PO SCH ×2 (06:44→11:54)
[2021-12-12] MEDS: HYDROCODONE/ACETAMINOPHEN 5/325 MG TAB PO SCH (06:44)
[2021-12-12] MEDS: PANTOPRAZOLE 40 MG TAB DR PO SCH (06:44)
[2021-12-12] MEDS: INSULIN HUMULIN R 100 UNIT/ML 3ML SQ SCH ×2 (07:30→11:53)
[2021-12-12] MEDS ORDERED: HYDROCODONE/ACETAMINOPHEN 5/325 MG TAB PO PRN ×2 (08:30)
[2021-12-12] MEDS ORDERED: DULOXETINE HCL 30 MG CAP PO SCH (09:00)
[2021-12-12] MEDS ORDERED: GABAPENTIN 300 MG CAPSULE PO SCH (09:00)
[2021-12-12 09:04] VITALS: BP 138/83
[2021-12-12] MEDS: POLYETHYLENE GLYCOL 3350 17 GM POWD.PACK PO SCH (10:10)
[2021-12-12] MEDS: DOCUSATE SODIUM 100 MG CAP PO SCH (10:10)
[2021-12-12] MEDS: METOPROLOL SUCCINATE 50 MG TAB.SR.24H PO SCH (10:10)
[2021-12-12] MEDS: ASPIRIN 81 MG EC TAB PO SCH (10:10)
[2021-12-12] MEDS: ENOXAPARIN SODIUM 40 MG/0.4 ML SYRINGE SQ SCH (10:11)
[2021-12-12 12:33] VITALS: BP 122/53
== END 2021-12-12 14:46 | DRG 474 ==
LOC: EDH 18:52 → EDHIP 20:27 → 2DH 23:51 → 4CH 12-11 22:18
PROVIDERS: ADMIT Hospitalist; ATTEND Hospitalist
PROC: B31N1ZZ Fluoroscopy of Other Upper Arteries using Low Osmolar Contrast (ICD-10-PCS; 2021-12-03)
PROC: 0Y6J0Z2 Detachment at Left Lower Leg, Mid, Open Approach (ICD-10-PCS; principal; 2021-12-06 13:53)
DX: T87.44 Infection of amputation stump, left lower extremity (principal); A41.9 Sepsis, unspecified organism; J96.01 Acute respiratory failure with hypoxia; E11.52 Type 2 diabetes mellitus with diabetic peripheral angiopathy with gangrene; I13.0 Hypertensive heart and chronic kidney disease with heart failure and stage 1 through stage 4 chronic kidney disease, or unspecified chronic kidney disease; N39.0 Urinary tract infection, site not specified; I96 Gangrene, not elsewhere classified; L03.116 Cellulitis of left lower limb; E11.65 Type 2 diabetes mellitus with hyperglycemia; L97.529 Non-pressure chronic ulcer of other part of left foot with unspecified severity; E11.22 Type 2 diabetes mellitus with diabetic chronic kidney disease; E11.621 Type 2 diabetes mellitus with foot ulcer; B95.62 Methicillin resistant Staphylococcus aureus infection as the cause of diseases classified elsewhere; E66.9 Obesity, unspecified; Z20.822 Contact with and (suspected) exposure to COVID-19; D50.9 Iron deficiency anemia, unspecified; I50.9 Heart failure, unspecified; Y83.5 Amputation of limb(s) as the cause of abnormal reaction of the patient, or of later complication, without mention of misadventure at the time of the procedure; K59.00 Constipation, unspecified; E83.42 Hypomagnesemia; N18.31 Chronic kidney disease, stage 3a; I25.10 Atherosclerotic heart disease of native coronary artery without angina pectoris; E11.69 Type 2 diabetes mellitus with other specified complication; E78.5 Hyperlipidemia, unspecified; I25.2 Old myocardial infarction; Z95.1 Presence of aortocoronary bypass graft; Z74.01 Bed confinement status; Z82.49 Family history of ischemic heart disease and other diseases of the circulatory system; Z83.3 Family history of diabetes mellitus; Z87.891 Personal history of nicotine dependence
CPT/HCPCS: 36140; 36415; 36600; 71045; 73630; 75710; 80048; 80053; 81001; 82306; 82435; 82607; 82728; 82746; 82803; 82947; 82948; 83036; 83540; 83550; 83605; 83735; 83880; 84100; 84132; 84145; 84295; 84484; 85018; 85025; 85027; 85610; 85730; 86140; 86850; 86900; 86901; 87040; 87070; 87076; 87077; 87088; 87186; 87635; 87804; 87880; 93005; 93306; 93356; 93926; 97039; 99156; 99157; C1769; C1894; C9803; G0378; J0330; J1100; J1170; J1644; J1650; J1756; J1815; J1885; J1940; J2001; J2185; J2250; J2270; J2405; J2543; J2704; J2710; J2795; J3010; J3370; J3475; J3490; J7030; Q9967

== ENCOUNTER 2022-02-12 11:37 | Emergency (ER) | payer MEDICARE ==
[~2022-02-12] VITALS: Ht 172.7 cm; Wt 72.6 kg
[~2022-02-12 11:37] MED LIST changes: -AEC81 PO; -GLIM4TAB36 PO; +LISI20TA24 PO; -LISI40TA9 PO; -METF-446 PO
[2022-02-12 12:00] VITALS: BP 108/46
[2022-02-12 12:07] LABS: BASOPHILS % (AUTO) 0.1 % (0.0-5.0); EOSINOPHILS % (AUTO) 0.5 % (0.0-8.0); HEMATOCRIT 31.8 % (42-54); LYMPHOCYTES % (AUTO) 19.4 % (21.0-51.0); MEAN CORPUSCULAR HEMOGLOBIN 29.3 pg (27.0-33.0); MEAN CORPUSCULAR HGB CONC 33.3 g/dL (32.0-36.0); MEAN CORPUSCULAR VOLUME 87.8 fL (79-99); MONOCYTES % (AUTO) 6.3 % (3.0-13.0); NEUTROPHILS % (AUTO) 73.3 % (40.0-77.0); PLATELET COUNT (AUTO) 153 K/uL (130-400); RED BLOOD CELL COUNT(AUTO) 3.62 MIL/uL (4.50-6.20); RED CELL DISTRIBUTION WIDTH 13.6 % (11.0-15.5); WHITE BLOOD COUNT (AUTO) 8.5 K/uL (4.8-10.8)
[2022-02-12 12:21] LABS: CREATININE 1.3 mg/dL (0.5-1.5)
[2022-02-12 12:26] LABS: TOTAL PROTEIN, SERUM 7.3 g/dL (6.0-8.3)
[2022-02-12 12:36] LABS: APPEARANCE,URINE TURBID (CLEAR); BILIRUBIN,URINE NEGATIVE (NEGATIVE); COLOR,URINE YELLOW (YELLOW); GLUCOSE, URINE (UA) NEGATIVE (NEGATIVE); KETONES,URINE NEGATIVE (NEGATIVE); LEUKOCYTE ESTERASE ,URINE LARGE (NEGATIVE); NITRATE,URINE POSITIVE (NEGATIVE); OCCULT BLOOD,URINE TRACE-INTACT (NEGATIVE); PH,URINE 5.5 (5.0-8.0); PROTEIN,URINE TRACE mg/dL (NEGATIVE); UROBILINOGEN,URINE 0.2 mg/dL (0.2-1.0)
[2022-02-12 12:59] LABS: BACTERIA,URINE Many /HPF (None Seen); RBC,URINE 0-1 /HPF (0-1); SQUAMOUS EPITHELIAL CELL,UR Rare /HPF (0-2); WBC,URINE >100 /HPF (0-1)
[2022-02-12] MEDS ORDERED: NAPR-1196 PO (13:17)
[2022-02-12] MEDS ORDERED: MACR100 PO (13:17)
[2022-02-12] MEDS ORDERED: NITROFURANTOIN MONOHYD/M-CRYST 100 MG CAPSULE PO ONE (13:30)
== END 2022-02-12 13:34 | disposition home or self-care (01) ==
LOC: EDH 11:37
DX: G54.6 Phantom limb syndrome with pain (principal); N39.0 Urinary tract infection, site not specified; I11.9 Hypertensive heart disease without heart failure; E78.00 Pure hypercholesterolemia, unspecified; E11.9 Type 2 diabetes mellitus without complications; F17.200 Nicotine dependence, unspecified, uncomplicated; Z79.899 Other long term (current) drug therapy; Z89.512 Acquired absence of left leg below knee
CPT/HCPCS: 36415; 80053; 81001; 84484; 85025; 87077; 87088; 87186; 93005

== ENCOUNTER 2023-04-26 20:55 | Inpatient (IN) | payer MEDICARE ==
[~2023-04-26] VITALS: Ht 172.7 cm; Wt 77.1 kg
[~2023-04-26 20:55] MED LIST changes: +ASPI-1005 PO; -ATOR20TA65 PO; +ATOR40TA69 PO; +CEPH500B PO; +GLIM4TAB36 PO; +Isosorbide Mono 30MG Sr Tab PO; -Isosorbide Mono 60MG Sr Tab PO; -LISI20TA24 PO; +METF-446 PO; -METO-391 PO; +METO25TA3 PO
[2023-04-27 00:28] LABS: CREATININE 1.8 mg/dL (0.5-1.5); POTASSIUM 4.2 mmol/L (3.5-5.1)
[2023-04-27] MEDS ORDERED: CEFTRIAXONE 2GM VIAL IVPB ONE (00:30)
[2023-04-27] MEDS ORDERED: LACTATED RINGERS 1000ML 2,052 ML IV ONE (00:30)
[2023-04-27 00:33] LABS: ALBUMIN 3.5 g/dL (3.5-5.0); BASOPHILS # (AUTO) 0.04 K/uL (0.00-0.20); BASOPHILS % (AUTO) 0.3 % (0.0-5.0); BILIRUBIN,TOTAL 0.5 mg/dL (0.2-1.0); EOSINOPHILS # (AUTO) 0.06 K/uL (0.00-0.70); EOSINOPHILS % (AUTO) 0.5 % (0.0-8.0); HEMATOCRIT 35.9 % (42-54); IMMATURE GRANULOCYTE ABSOLUTE 0.06 K/uL (0-1); LYMPHOCYTES # (AUTO) 2.6 K/uL (1.0-4.8); LYMPHOCYTES % (AUTO) 19.8 % (21.0-51.0); MEAN CORPUSCULAR HEMOGLOBIN 30.9 pg (27.0-33.0); MEAN CORPUSCULAR HGB CONC 33.1 g/dL (32.0-36.0); MEAN CORPUSCULAR VOLUME 93.2 fL (79-99); MONOCYTES # (AUTO) 0.9 K/uL (0.1-1.0); MONOCYTES % (AUTO) 6.9 % (3.0-13.0); NEUTROPHILS # (AUTO) 9.3 K/uL (1.8-7.7); PLATELET COUNT (AUTO) 145 K/uL (130-400); RED BLOOD CELL COUNT(AUTO) 3.85 MIL/uL (4.50-6.20); RED CELL DISTRIBUTION WIDTH 13.2 % (11.0-15.5); TOTAL PROTEIN, SERUM 7.7 g/dL (6.0-8.3)
[2023-04-27 00:47] LABS: SARS-CoV-2, RNA, NAAT NEGATIVE SARS CoV-2 (NEGATIVE)
[2023-04-27 00:49] LABS: INFLUENZA TYPE A Negative For Type A (NEGATIVE); INFLUENZA TYPE B Negative For Type B (NEGATIVE)
[2023-04-27 01:01] LABS: APPEARANCE,URINE CLOUDY (CLEAR); BILIRUBIN,URINE NEGATIVE (NEGATIVE); COLOR,URINE YELLOW (YELLOW); GLUCOSE, URINE (UA) >=1000 mg/dL (NEGATIVE); KETONES,URINE NEGATIVE (NEGATIVE); LEUKOCYTE ESTERASE ,URINE 500 Leu/uL (NEGATIVE); NITRATE,URINE NEGATIVE (NEGATIVE); OCCULT BLOOD,URINE SMALL (NEGATIVE); PROTEIN,URINE 30 mg/dL (NEGATIVE); UROBILINOGEN,URINE 0.2 mg/dL (0.2-1.0)
[2023-04-27 01:02] LABS: ADD UA MICROSCOPIC YES
[2023-04-27 01:04] LABS: BACTERIA,URINE RARE /HPF (None Seen); SQUAMOUS EPITHELIAL CELL,UR RARE /HPF (0-2); WBC CLUMP MOD /HPF (0-1); WBC,URINE TNTC /HPF (0-1)
[2023-04-27] MEDS ORDERED: MAGNESIUM 2GM PREMIX 50ML 50 ML IV ONE (01:30)
[2023-04-27] MEDS: AZTREONAM 1 GM VIAL IVPB SCH ×2 (02:00→10:23)
[2023-04-27] MEDS ORDERED: POTASSIUM CHLORIDE 10MEQ/100ML 100 ML IV PRN (02:00)
[2023-04-27] MEDS ORDERED: DEXTROSE 50%-WATER 50 ML DISP.SYRIN IV PRN (02:00)
[2023-04-27] MEDS ORDERED: ACETAMINOPHEN 325 MG TAB PO PRN ×2 (02:00)
[2023-04-27] MEDS ORDERED: ONDANSETRON 4MG INJ IV PRN (02:00)
[2023-04-27] MEDS ORDERED: GLUCAGON 1MG KIT 1 MG ML IM PRN (02:00)
[2023-04-27] MEDS: 0.9%NACL 1000ML 1,000 ML IV SCH ×2 (03:43→16:59)
[2023-04-27] MEDS: INSULIN HUMULIN R 100 UNIT/ML 3ML SQ SCH ×4 (07:30→22:08)
[2023-04-27 08:22] LABS: BASOPHILS # (AUTO) 0.03 K/uL (0.00-0.20); BASOPHILS % (AUTO) 0.3 % (0.0-5.0); EOSINOPHILS % (AUTO) 0.8 % (0.0-8.0); HEMATOCRIT 34.4 % (42-54); IMMATURE GRANULOCYTE ABSOLUTE 0.07 K/uL (0-1); LYMPHOCYTES # (AUTO) 1.7 K/uL (1.0-4.8); MEAN CORPUSCULAR HGB CONC 33.4 g/dL (32.0-36.0); MEAN CORPUSCULAR VOLUME 92.7 fL (79-99); MONOCYTES # (AUTO) 0.9 K/uL (0.1-1.0); MONOCYTES % (AUTO) 7.2 % (3.0-13.0); NEUTROPHILS # (AUTO) 9.3 K/uL (1.8-7.7); NEUTROPHILS % (AUTO) 77.1 % (40.0-77.0); PLATELET COUNT (AUTO) 140 K/uL (130-400); RED BLOOD CELL COUNT(AUTO) 3.71 MIL/uL (4.50-6.20); RED CELL DISTRIBUTION WIDTH 13.2 % (11.0-15.5)
[2023-04-27 08:39] LABS: ALANINE AMINOTRANSFERASE 16 U/L (12-78); ALBUMIN 3.2 g/dL (3.5-5.0); AMMONIA < 10 umol/L (11-32); ASPARTATE AMINOTRANSFERASE 15 U/L (10-37); BILIRUBIN,TOTAL 0.5 mg/dL (0.2-1.0); CARBON DIOXIDE 26 mmol/L (21-32); CHLORIDE 103 mmol/L (101-111); CREATININE 1.5 mg/dL (0.5-1.5); GLOMERULAR FILTR. RATE CALC 47 mL/min (>90); GLUCOSE,RANDOM 101 mg/dL (70-105); POTASSIUM 3.9 mmol/L (3.5-5.1); SODIUM SERUM 139 mmol/L (136-145); TOTAL PROTEIN, SERUM 7.1 g/dL (6.0-8.3); UREA NITROGEN, BLOOD 27 mg/dL (7-18)
[2023-04-27] MEDS ORDERED: LISI20TA24 PO (08:47)
[2023-04-27] MEDS: FAMOTIDINE 20MG TAB PO SCH (10:06)
[2023-04-27] MEDS ORDERED: 0.9%NACL 50ML IV SCH (14:30)
[2023-04-27] MEDS: ZOSYN 3.375GM +NS 50ML IVPB SCH ×2 (14:43→22:07)
[2023-04-27] MEDS: ACETAMINOPHEN WITH CODEINE 1 TAB TAB PO PRN (15:44)
[2023-04-27 22:25] VITALS: BP 125/58; PULSE 60; RESP 20
[2023-04-27 22:48] VITALS: O2SAT 98
[2023-04-28] VITALS (8 sets, daily range): BP systolic 119–162; BP diastolic 45–73; PULSE 51–76; RESP 18–20; O2SAT 95–96
[2023-04-28] MEDS: ACETAMINOPHEN WITH CODEINE 1 TAB TAB PO PRN ×2 (00:51→21:52)
[2023-04-28] MEDS: 0.9%NACL 1000ML 1,000 ML IV SCH ×2 (04:51→18:00)
[2023-04-28 05:03] LABS: BASOPHILS # (AUTO) 0.02 K/uL (0.00-0.20); BASOPHILS % (AUTO) 0.2 % (0.0-5.0); EOSINOPHILS # (AUTO) 0.07 K/uL (0.00-0.70); EOSINOPHILS % (AUTO) 0.8 % (0.0-8.0); HEMATOCRIT 32.1 % (42-54); IMMATURE GRANULOCYTE ABSOLUTE 0.04 K/uL (0-1); LYMPHOCYTES # (AUTO) 1.7 K/uL (1.0-4.8); LYMPHOCYTES % (AUTO) 19.3 % (21.0-51.0); MEAN CORPUSCULAR HGB CONC 32.7 g/dL (32.0-36.0); MEAN CORPUSCULAR VOLUME 94.7 fL (79-99); MONOCYTES # (AUTO) 0.7 K/uL (0.1-1.0); MONOCYTES % (AUTO) 8.2 % (3.0-13.0); NEUTROPHILS # (AUTO) 6.2 K/uL (1.8-7.7); PLATELET COUNT (AUTO) 125 K/uL (130-400); RED BLOOD CELL COUNT(AUTO) 3.39 MIL/uL (4.50-6.20); RED CELL DISTRIBUTION WIDTH 13.2 % (11.0-15.5); WHITE BLOOD COUNT (AUTO) 8.7 K/uL (4.8-10.8)
[2023-04-28 05:16] LABS: CREATININE 1.6 mg/dL (0.5-1.5); MAGNESIUM 1.6 mg/dL (1.80-2.40); POTASSIUM 4.1 mmol/L (3.5-5.1)
[2023-04-28] MEDS: ZOSYN 3.375GM +NS 50ML IVPB SCH ×3 (06:07→21:51)
[2023-04-28] MEDS: MAGNESIUM 2GM PREMIX 50ML 50 ML IV PRN ×2 (06:08→10:47)
[2023-04-28] MEDS: INSULIN HUMULIN R 100 UNIT/ML 3ML SQ SCH ×4 (06:08→20:37)
[2023-04-28] MEDS: FAMOTIDINE 20MG TAB PO SCH (08:43)
[2023-04-28] MEDS ORDERED: TAMSULOSIN HCL 0.4 MG CAP.ER.24H PO ONE (15:00)
[2023-04-29 00:44] VITALS: BP 150/66; PULSE 62
[2023-04-29 04:00] VITALS: BP 148/65; PULSE 52; RESP 18
[2023-04-29 05:06] LABS: BASOPHILS # (AUTO) 0.02 K/uL (0.00-0.20); BASOPHILS % (AUTO) 0.3 % (0.0-5.0); EOSINOPHILS # (AUTO) 0.12 K/uL (0.00-0.70); HEMATOCRIT 32.6 % (42-54); IMMATURE GRANULOCYTE ABSOLUTE 0.03 K/uL (0-1); LYMPHOCYTES # (AUTO) 1.9 K/uL (1.0-4.8); LYMPHOCYTES % (AUTO) 32.4 % (21.0-51.0); MEAN CORPUSCULAR HEMOGLOBIN 30.7 pg (27.0-33.0); MEAN CORPUSCULAR HGB CONC 32.5 g/dL (32.0-36.0); MEAN CORPUSCULAR VOLUME 94.5 fL (79-99); MONOCYTES # (AUTO) 0.7 K/uL (0.1-1.0); NEUTROPHILS # (AUTO) 3.2 K/uL (1.8-7.7); NEUTROPHILS % (AUTO) 53.8 % (40.0-77.0); PLATELET COUNT (AUTO) 141 K/uL (130-400); RED BLOOD CELL COUNT(AUTO) 3.45 MIL/uL (4.50-6.20); RED CELL DISTRIBUTION WIDTH 13.2 % (11.0-15.5)
[2023-04-29 05:31] LABS: CREATININE 1.7 mg/dL (0.5-1.5); MAGNESIUM 1.9 mg/dL (1.80-2.40); POTASSIUM 4.4 mmol/L (3.5-5.1)
[2023-04-29] MEDS: INSULIN HUMULIN R 100 UNIT/ML 3ML SQ SCH ×3 (05:51→16:30)
[2023-04-29] MEDS: ZOSYN 3.375GM +NS 50ML IVPB SCH ×2 (05:51→15:27)
[2023-04-29] MEDS: 0.9%NACL 1000ML 1,000 ML IV SCH (05:51)
[2023-04-29 07:45] VITALS: O2SAT 95
[2023-04-29 08:00] VITALS: BP 154/70; PULSE 57; RESP 18
[2023-04-29] MEDS: FAMOTIDINE 20MG TAB PO SCH (08:41)
[2023-04-29] MEDS ORDERED: TAMSULOSIN HCL 0.4 MG CAP.ER.24H PO SCH (09:00)
[2023-04-29] MEDS ORDERED: METOPROLOL SUCCINATE 25 MG TAB.SR.24H PO SCH (09:00)
[2023-04-29] MEDS ORDERED: LACTULOSE 20 GM/30 ML UDCUP PO PRN (11:30)
[2023-04-29 12:00] VITALS: BP 159/77; PULSE 57; RESP 18
[2023-04-29 16:00] VITALS: BP 150/55; PULSE 58; RESP 18
[2023-04-29] MEDS ORDERED: TAMS-1 PO (18:07)
== END 2023-04-29 16:45 | disposition home or self-care (01) | DRG 872 ==
LOC: EDH 20:55 → EDHIP 04-27 02:00 → 3DH 04-27 22:25
PROVIDERS: ADMIT Hospitalist; ATTEND Hospitalist
DX: A41.50 Gram-negative sepsis, unspecified (principal); N39.0 Urinary tract infection, site not specified; N17.9 Acute kidney failure, unspecified; D64.9 Anemia, unspecified; Z20.822 Contact with and (suspected) exposure to COVID-19; N18.9 Chronic kidney disease, unspecified; R65.20 Severe sepsis without septic shock; E11.22 Type 2 diabetes mellitus with diabetic chronic kidney disease; I12.9 Hypertensive chronic kidney disease with stage 1 through stage 4 chronic kidney disease, or unspecified chronic kidney disease; D69.6 Thrombocytopenia, unspecified; E11.51 Type 2 diabetes mellitus with diabetic peripheral angiopathy without gangrene; E78.00 Pure hypercholesterolemia, unspecified; E83.42 Hypomagnesemia; E86.0 Dehydration; F17.210 Nicotine dependence, cigarettes, uncomplicated; I25.10 Atherosclerotic heart disease of native coronary artery without angina pectoris; Z82.49 Family history of ischemic heart disease and other diseases of the circulatory system; Z83.3 Family history of diabetes mellitus; Z89.512 Acquired absence of left leg below knee; Z95.1 Presence of aortocoronary bypass graft; Z79.84 Long term (current) use of oral hypoglycemic drugs
CPT/HCPCS: 36415; 71045; 80048; 80053; 81001; 82140; 82948; 83605; 83735; 84145; 85025; 86140; 87040; 87088; 87635; 87804; 93005; C9803; G0378; J0696; J1815; J2543; J3475; J3490

== ENCOUNTER 2024-10-20 21:25 | Inpatient (IN) | payer MEDICARE ==
[~2024-10-20] VITALS: Ht 172.7 cm; Wt 72.6 kg
[~2024-10-20 21:25] MED LIST changes: -ASPI-1005 PO; -ATOR40TA69 PO; -CEPH500B PO; -Isosorbide Mono 30MG Sr Tab PO; +TAMS-1 PO
[2024-10-20 22:06] LABS: BASOPHILS # (AUTO) 0.03 K/uL (0.00-0.20); BASOPHILS % (AUTO) 0.5 % (0.0-5.0); EOSINOPHILS # (AUTO) 0.11 K/uL (0.00-0.70); EOSINOPHILS % (AUTO) 1.7 % (0.0-8.0); HEMATOCRIT 36.9 % (42-54); IMMATURE GRANULOCYTE ABSOLUTE 0.03 K/uL (0-1); LYMPHOCYTES # (AUTO) 2.2 K/uL (1.0-4.8); LYMPHOCYTES % (AUTO) 33.5 % (21.0-51.0); MEAN CORPUSCULAR HEMOGLOBIN 30.7 pg (27.0-33.0); MEAN CORPUSCULAR HGB CONC 32.2 g/dL (32.0-36.0); MEAN CORPUSCULAR VOLUME 95.3 fL (79-99); MONOCYTES # (AUTO) 0.6 K/uL (0.1-1.0); MONOCYTES % (AUTO) 9.1 % (3.0-13.0); NEUTROPHILS # (AUTO) 3.5 K/uL (1.8-7.7); NEUTROPHILS % (AUTO) 54.7 % (40.0-77.0); PLATELET COUNT (AUTO) 205 K/uL (130-400); RED BLOOD CELL COUNT(AUTO) 3.87 MIL/uL (4.50-6.20); RED CELL DISTRIBUTION WIDTH 13.5 % (11.0-15.5); WHITE BLOOD COUNT (AUTO) 6.5 K/uL (4.8-10.8)
[2024-10-20 22:14] LABS: CREATININE 1.7 mg/dL (0.5-1.3); POTASSIUM 4.8 mmol/L (3.5-5.1)
--- NOTE | 2024-10-20 22:46 | HMCIMG ---
CHEST 1VW HISTORY: Chest pain COMPARISON: 04/27/2023 FINDINGS: A frontal projection of the chest was obtained. There are bilateral pulmonary infiltrates suggestive of pulmonary vascular congestion with possible superimposed pneumonitis. Poststernotomy changes are seen. The heart is enlarged. Degenerative changes of the thoracolumbar spine are present. No evidence of aortic calcification is seen. IMPRESSION: 1. Bilateral pulmonary infiltrates are seen suggestive of pulmonary vascular congestion with possible superimposed pneumonitis.
[2024-10-20] MEDS: ASPIRIN 325MG TAB PO ONE (23:31)
[2024-10-20 23:37] LABS: B-TYPE NATRIURETIC PEPTIDE 138 pg/mL (0-100)
--- NOTE | 2024-10-20 23:58 | ERN ---
General Chief Complaint: Chest Pain Stated Complaint: C/O CP Time Seen by MD: 21:45 Time Seen by Midlevel: 21:45 Source: patient History of Present Illness Initial Comments Patient is an 79-year-old male with a past medical history of hypertension, type 2 diabetes, and a triple bypass surgery in 2009 who presents to the emergency department for evaluation of intermittent chest pain that started earlier today. Denies any other symptoms. Allergies: Coded Allergies: No Known Drug Allergies (Unverified Allergy, 10/26/12) Home Meds Active Scripts Tamsulosin HCl (Flomax) 0.4 Mg Cap.er.24h, 0.4 MG PO DAILY for 7 Days, #7 CAPSULE.DR Prov:CONNIE GARCIA 04/29/23 Metoprolol Succinate (Toprol Xl) 25 Mg Tab.er.24h, 25 MG PO DAILY, #30 TAB Prov:JEFF MAHAN 06/24/22 Reported Medications Metformin HCl (Metformin HCl) 1,000 Mg Tablet, 1000 MG PO BIDPC, TAB 06/22/22 Glimepiride (Glimepiride) 4 Mg Tablet, 4 MG PO BIDPC, TAB 06/22/22 Past Medical History Past Medical History: Diabetes-Type II Past Surgical History: Other, None Surgical History Other: TRIPLE BYPASS (2009) Family History Family History: Negative Social History Social History: Smokers, Lives with family, Other ROS Dictation CONSTITUTIONAL: Negative except for HPI HEAD/FACE: Negative except for HPI EENT: Negative except for HPI RESPIRATORY: Negative except for HPI GASTROINTESTINAL/ABDOMINAL: Negative except for HPI GENITOURINARY: Negative except for HPI MUSCULOSKELETAL: Negative except for HPI INTEGUMENTARY: Negative except for HPI NEUROLOGICAL/PSYCH: Negative except for HPI HEMATOLOGIC/LYMPHATIC: Negative except for HPI All Systems Negative, Except as noted above. 13 point review of systems assessed and all negative except for above. Physical Exam Physical Exam Dictation Vital Signs reviewed General Appearance: Alert, oriented x 3, no acute distress, well developed, nourished. Head and Face: non-traumatic. Eyes: PERRL, pink conjunctivas, eyelid no trauma, anterior chamber with arcus senilis. Ears: Pinnas intact and no signs of trauma or erythema ear canals clear and no discharge TM no erythema Nose: No discharge, no bleeding. Oropharynx: Mouth normal, tongue pink, pharynx clear,no erythema, tonsils no exudates, no abscesses noted, mucous membrane moist Neck: Supple, non-tender, no thyromegaly, no masses, no JVD, no bruits Breast:Deferred Chest:No tenderness, no crepitus, no paradoxical movement, no retractions Lungs:Clear, well-ventilated, symmetric, no rales, no wheezing, no rhonchi, no stridor, good breath sounds bilaterally Heart: Regular rate, regular rhythm, no murmur, no gallops Vascular: no peripheral edema, Abdomen: Soft, positive bowel sounds, nondistended, no guarding, nontender, no rebound, no masses no hepatomegaly, no splenomegaly, no Ballard's sign, no hernias. Rectal: Deferred Genital: Deferred Neurological: Normal speech, motor function intact, sensory function intact Musculoskeletal: Neck nontender, full range of motion, back nontender, full range of motion, Extremities: nontender, full range of motion Skin: Color pink, dry, no turgor, no rash, no lacerations, no abrasions, no contusions. Lymphatic: Deferred Results Laboratory and Microbiology Lab and Micro Result Laboratory Tests Test 10/20/24 21:56 10/20/24 23:35 White Blood Count 6.5 K/uL (4.8-10.8) Red Blood Count 3.87 MIL/uL (4.50-6.20) L Hemoglobin 11.9 g/dL (14.0-18.0) L Hematocrit 36.9 % (42-54) L Mean Corpuscular Volume 95.3 fL (79-99) Mean Corpuscular Hemoglobin 30.7 pg (27.0-33.0) Mean Corpuscular Hemoglobin Concent 32.2 g/dL (32.0-36.0) Red Cell Distribution Width 13.5 % (11.0-15.5) Platelet Count 205 K/uL (130-400) Mean Platelet Volume 11.0 fL (7.5-10.5) H Immature Granulocyte % (Auto) 0.5 % (0-1) Neutrophils (%) (Auto) 54.7 % (40.0-77.0) Lymphocytes (%) (Auto) 33.5 % (21.0-51.0) Monocytes (%) (Auto) 9.1 % (3.0-13.0) Eosinophils (%) (Auto) 1.7 % (0.0-8.0) Basophils (%) (Auto) 0.5 % (0.0-5.0) Neutrophils # (Auto) 3.5 K/uL (1.8-7.7) Lymphocytes # (Auto) 2.2 K/uL (1.0-4.8) Monocytes # (Auto) 0.6 K/uL (0.1-1.0) Eosinophils # (Auto) 0.11 K/uL (0.00-0.70) Basophils # (Auto) 0.03 K/uL (0.00-0.20) Absolute Immature Granulocyte (auto 0.03 K/uL (0-1) Nucleated Red Blood Cells 0.0 % (0.0-0.19) Sodium Level 136 mmol/L (136-145) Potassium Level 4.8 mmol/L (3.5-5.1) Chloride Level 101 mmol/L (101-111) Carbon Dioxide Level 28 mmol/L (21-32) Blood Urea Nitrogen 29 mg/dL (7-18) H Creatinine 1.7 mg/dL (0.5-1.3) H Glomerular Filtration Rate Calc 40 mL/min (>90) Random Glucose 272 mg/dL (70-105) H Total Calcium 9.4 mg/dL (8.5-10.1) Total Creatine Kinase 56 U/L (21-232) Troponin I High Sensitivity 100 ng/L (4-75) *H B-Type Natriuretic Peptide 138 pg/mL (0-100) H Urine Color LIGHT-YELLOW (YELLOW) Urine Appearance CLEAR (CLEAR) Urine pH 5.0 (5.0-8.0) Urine Specific [place] 1.018 (1.001-1.031) Urine Protein 20 mg/dL (NEGATIVE) H Urine Glucose (UA) >=1000 mg/dL (NEGATIVE) H Urine Ketones NEGATIVE mg/dL (NEGATIVE) Urine Occult Blood NEGATIVE (NEGATIVE) Urine Nitrate NEGATIVE (NEGATIVE) Urine Bilirubin NEGATIVE mg/dL (NEGATIVE) Urine Urobilinogen 0.2 mg/dL (0.2-1.0) Urine Leukocyte Esterase 500 Susan/uL (NEGATIVE) H Urine RBC 2-5 /HPF (0-1) H Urine WBC 51-100 /HPF (0-1) H Urine Squamous Epithelial Cells RARE /HPF (0-2) Urine Bacteria RARE /HPF (None Seen) Labs Reviewed?: Yes MDM MDM: Differential diagnosis: ACS, angina, dehydration, electrolyte abnormality Rationale: Tests considered and ordered secondary to shared decision making include: Previous outside records reviewed: Old ER visits. Risk of complication and/or morbidity or mortality of patient management: None Medications-Per medication reconciliation Need for hospitalization: Patient does meet criteria for hospitalization. Need for emergency major/minor surgery: No There are no social concerns with this patient. Prescription drug management Prescriptions will include symptomatic care Patient's prior external medical records from other ER visits were reviewed by me as indicated. Prior testing and results from previous visits were reviewed. Prior tests were taken into account with medical decision making and resource utilization, independent historian/historians were used to obtain complete medical history. I independently interpreted the test that were performed, results were reviewed by me and considered findings on radiology if ordered. Medical management and examination interpretation discussions were had by me with other qualified healthcare professionals as indicated for the patient's care. ED Course Orders Procedure Category Date Status Time Vital Signs Per CPOE 10/20/24 Transmitted Routine 21:33 B-Type Natriuretic LAB 10/20/24 Complete Peptide 21:33 Chest 1vw RAD 10/20/24 Resulted 21:33 12 Lead Ekg Tracing- EKG 10/20/24 Logged Technical 21:33 Oxygen By Nc/Pulse Ox CPOE 10/20/24 Transmitted 21:33 Maintain Iv CPOE 10/20/24 Transmitted 21:33 Iv Insertion CPOE 10/20/24 Transmitted 21:33 Cardiac Monitoring CPOE 10/20/24 Transmitted 21:33 Pulse Oximetry With CPOE 10/20/24 Transmitted Vs And Prn 21:33 Cbc With Differential LAB 10/20/24 Complete 21:33 Activity: Br W/Brp CPOE 10/20/24 Transmitted With Assist 21:33 Creatine Kinase, Total LAB 10/20/24 Complete 21:33 Troponin I High LAB 10/20/24 Complete Sensitivity 21:33 Urinalysis Profile LAB 10/20/24 Complete 21:33 Basic Metabolic Panel LAB 10/20/24 Complete 21:33 Aspirin 325mg Tab PHA 10/20/24 Complete (Aspirin 325mg Tab) 23:30 Current Medications Medications (Trade) Dose Ordered Sig/Dudley Route PRN Reason Start Time Stop Time Status Last Admin Dose Admin Aspirin (Aspirin 325mg Tab) 325 mg ONCE ONCE PO 10/20/24 23:30 10/20/24 23:31 DC 10/20/24 23:31 Vital Signs Date Time Temp Pulse Resp B/P (MAP) Pulse Ox O2 Delivery O2 Flow Rate FiO2 10/20/24 23:38 98.2 62 18 135/54 98 Room Air* 0 21 10/20/24 21:28 98.1 86 20 165/87 100 Room Air [place] [id number] [address] IMAGING REPORT Signed PATIENT: RADHA MENDOZA MR#: [id number] : 1945 SEX: M AGE: 79 LOCATION: [facility] ORDER 34 STATUS: REG ER REPORT#: [id number] SERVICE 32 REASON: CHEST PAIN ORDERING PHYSICIAN: CONNIE BELTRÁN MD PROCEDURE: CXR1VW - CHEST 1VW CHEST 1VW HISTORY: Chest pain COMPARISON: 04/27/2023 FINDINGS: A frontal projection of the chest was obtained. There are bilateral pulmonary infiltrates suggestive of pulmonary vascular congestion with possible superimposed pneumonitis. Poststernotomy changes are seen. The heart is enlarged. Degenerative changes of the thoracolumbar spine are present. No evidence of aortic calcification is seen. IMPRESSION: 1. Bilateral pulmonary infiltrates are seen suggestive of pulmonary vascular congestion with possible superimposed pneumonitis. DICTATED BY: AURE ESPINOZA MD DATE: 10/20/242241 ELECTRONICALLY SIGNED BY: AURE ESPINOZA MD DATE: 10/20/242245 HEART Score Response (Comments) Value History: Moderate suspicion (+1) 1 EKG: Repolarization changes 1 Age: > 65yrs (+2) 2 Risk Factors: 3+ risk factors (+2) 2 Initial Troponin: 1-3x Normal Limit (+1) 1 HEART Score Risk: High Risk for MACE (7-10) Total 7 DX & DISP Disposition: Inpatient Departure Impression: Primary Impression: Chest pain Additional Impression: Elevated troponin Condition: Stable Referrals: DOTTIE LOPEZ MD (PCP) I have reviewed the case, and I agree with, Diagnosis and Plan I performed the substantive portion of the visit. I have reviewed and personally made and approve the management plan that is documented in the note by myself or the DORCAS. I acknowledge for responsibility for the patient's management plan. IOANA SAUCEDA Oct 20, 2024 23:58
[2024-10-20 23:59] LABS: APPEARANCE,URINE CLEAR (CLEAR); BILIRUBIN,URINE NEGATIVE (NEGATIVE); COLOR,URINE LIGHT-YELLOW (YELLOW); GLUCOSE, URINE (UA) >=1000 mg/dL (NEGATIVE); KETONES,URINE NEGATIVE (NEGATIVE); LEUKOCYTE ESTERASE ,URINE 500 Leu/uL (NEGATIVE); NITRATE,URINE NEGATIVE (NEGATIVE); OCCULT BLOOD,URINE NEGATIVE (NEGATIVE); PROTEIN,URINE 20 mg/dL (NEGATIVE); UROBILINOGEN,URINE 0.2 mg/dL (0.2-1.0)
[2024-10-21] VITALS (9 sets, daily range): BP systolic 114–149; BP diastolic 60–98; PULSE 54–63; RESP 16–20; TEMP 97.6–98.4; O2SAT 94–98
[2024-10-21] MEDS ORDERED: ondanSETRON 4MG TABLET PO PRN
[2024-10-21 00:08] LABS: ADD UA MICROSCOPIC YES
[2024-10-21 00:21] LABS: BACTERIA,URINE RARE /HPF (None Seen); MUCUS,URINE RARE LPF (None Seen); SQUAMOUS EPITHELIAL CELL,UR RARE /HPF (0-2); WBC,URINE 51-100 /HPF (0-1)
[2024-10-21 05:01] LABS: BASOPHILS # (AUTO) 0.05 K/uL (0.00-0.20); BASOPHILS % (AUTO) 0.7 % (0.0-5.0); EOSINOPHILS # (AUTO) 0.18 K/uL (0.00-0.70); EOSINOPHILS % (AUTO) 2.6 % (0.0-8.0); HEMATOCRIT 37.7 % (42-54); IMMATURE GRANULOCYTE ABSOLUTE 0.03 K/uL (0-1); MEAN CORPUSCULAR HEMOGLOBIN 30.2 pg (27.0-33.0); MEAN CORPUSCULAR HGB CONC 31.8 g/dL (32.0-36.0); MONOCYTES # (AUTO) 0.6 K/uL (0.1-1.0); MONOCYTES % (AUTO) 8.8 % (3.0-13.0); NEUTROPHILS # (AUTO) 3.1 K/uL (1.8-7.7); NEUTROPHILS % (AUTO) 44.5 % (40.0-77.0); PLATELET COUNT (AUTO) 217 K/uL (130-400); RED BLOOD CELL COUNT(AUTO) 3.97 MIL/uL (4.50-6.20); RED CELL DISTRIBUTION WIDTH 13.4 % (11.0-15.5); WHITE BLOOD COUNT (AUTO) 6.9 K/uL (4.8-10.8)
[2024-10-21 05:16] LABS: CREATININE 1.5 mg/dL (0.5-1.3); MAGNESIUM 1.9 mg/dL (1.80-2.40); POTASSIUM 4.4 mmol/L (3.5-5.1)
[2024-10-21 05:42] LABS: HEMOGLOBIN A1C 7.9 % (4.0-6.0)
--- NOTE | 2024-10-21 06:07 | EKG ---
[facility] Test Date: 2024-10-20 Test Time: 21:35:16 Pat Name: RADHA MENDOZA Department: [facility] Room: 303 1 Gender: M Cork Wirer: [id number] : 1945 Requested By: CONNIE BELTRÁN Order Number: [id number] Reading MD: Fidel Hurst Measurements Intervals [place] Rate: 76 P: 7 ID: 200 QRS: 5 QRSD: 101 T: 83 QT: 362 QTc: 405 Interpretive Statements Sinus rhythm Atrial premature complexes Inferior infarct, old Borderline ST elevation, anterior leads Compared to ECG 04/26/2023 23:46:39 No significant changes Electronically Signed On 10-21-2024 14:41:45 CDT by Fidel Hurst Please click the below link to view image of tracing.
[2024-10-21] MEDS: ASPIRIN 81 MG EC TAB PO SCH (10:22)
[2024-10-21] MEDS: ENOXAPARIN SODIUM 40 MG/0.4 ML SYRINGE SQ SCH (10:23)
[2024-10-21] MEDS ORDERED: METF-446 PO (10:28)
--- NOTE | 2024-10-21 12:45 | NUR ---
DISCUSSED PLAN OF CARE WITH DR. Otero ORDERS TO CHECK AM LABS FOR TROPONIN AND ADD TROPIN NOW TO CHECK TRENDS. PRIMARY RN TO ALERT IF RISING OR STABLE.
--- NOTE | 2024-10-21 14:00 | NUR ---
MET W PATIENT FOR DC PLANNING. HOME IF POSSIBLE Patient lives with spouse and daughter. Patient has rolling walker and shower chair. BKA about 5 years ago, with a prothesis. about 4.5, uses with no problem. Spouse states that as a couple they have 2 providers that in total have over 40 hrs. They also go to adult daycare, which provides all transport to MD appointments. DCP depending on clinical course- here with high Troponins that may need possible intervention. Face sheet and phone numbers confirmed. Addendum: 10/21/24 at 1733 by GLENIS RUBIO RN CM Amended: Links added.
[2024-10-21 14:18] LABS: PROTHROMBIN TIME 10.6 SEC (9.6-11.6)
[2024-10-21 14:19] LABS: PARTIAL THROMBOPLASTIN TIME 31.6 SEC (26.3-35.5)
[2024-10-21] MEDS: HEParin 5,000 UNIT VIAL IV PRN (14:32)
[2024-10-21] MEDS: HEParin 25,000 UNITS/250ML D5W 250 ML IV SCH (14:36)
[2024-10-22] VITALS (9 sets, daily range): BP systolic 100–154; BP diastolic 40–69; PULSE 59–100; RESP 18–20; TEMP 98–98.9; O2SAT 97–98
[2024-10-22 10:01] LABS: BASOPHILS # (AUTO) 0.04 K/uL (0.00-0.20); BASOPHILS % (AUTO) 0.6 % (0.0-5.0); EOSINOPHILS # (AUTO) 0.14 K/uL (0.00-0.70); EOSINOPHILS % (AUTO) 1.9 % (0.0-8.0); HEMATOCRIT 37.4 % (42-54); IMMATURE GRANULOCYTE ABSOLUTE 0.04 K/uL (0-1); LYMPHOCYTES # (AUTO) 2.7 K/uL (1.0-4.8); LYMPHOCYTES % (AUTO) 36.9 % (21.0-51.0); MEAN CORPUSCULAR HEMOGLOBIN 30.2 pg (27.0-33.0); MEAN CORPUSCULAR HGB CONC 32.1 g/dL (32.0-36.0); MEAN CORPUSCULAR VOLUME 94.2 fL (79-99); MONOCYTES # (AUTO) 0.6 K/uL (0.1-1.0); MONOCYTES % (AUTO) 8.5 % (3.0-13.0); NEUTROPHILS # (AUTO) 3.8 K/uL (1.8-7.7); NEUTROPHILS % (AUTO) 51.5 % (40.0-77.0); PLATELET COUNT (AUTO) 223 K/uL (130-400); RED BLOOD CELL COUNT(AUTO) 3.97 MIL/uL (4.50-6.20); RED CELL DISTRIBUTION WIDTH 13.5 % (11.0-15.5); WHITE BLOOD COUNT (AUTO) 7.3 K/uL (4.8-10.8)
[2024-10-22] MEDS: cefTRIAXone 1G VIAL IVPB SCH (10:04)
[2024-10-22 10:12] LABS: CREATININE 1.7 mg/dL (0.5-1.3); MAGNESIUM 1.8 mg/dL (1.80-2.40); POTASSIUM 4.4 mmol/L (3.5-5.1)
--- NOTE | 2024-10-22 13:37 | CONS ---
[facility] Cardiology Consultation Note Cardiology consultation October 22, 2024 Notified of consultation 12:30 p.m. today Chief complaint: This is an 79-year-old male who was admitted with chest pain. History of present illness: The patient has a history of coronary artery disease and is status post a remote bypass surgery in 2004. He underwent left heart catheterization in October of 2012 revealed 4/4 grafts patent with an ejection fraction of 55% and poor distal targets managed medically. He had a Lexiscan Cardiolite stress test in June 2018 showing lateral wall ischemia and was managed medically. He developed retrosternal pain and came to the emergency room. He states his pain lasted for many hours. His initial electrocardiogram showed half a mm ST-elevation in V1 [address]-elevation in V2 and half a mm elevation in V3 which did not quite meet STEMI criteria. He was admitted and treated with heparin. Troponins has been 100, 3102 and 2701. Brain natriuretic peptide level normal at 138. He is currently pain-free. The patient has been followed in the past by Dr. Altamirano but states now that Dr. 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 He has been noncompliant with follow up and was last seen in 2022. Past medical history: In addition to coronary artery disease the patient has a history of carotid artery disease status post placement of a stent in the left internal carotid artery June 2013 with a residual of 60-70% stenosis in the right internal carotid artery. Doppler study in June 2018 showed his left internal carotid artery stent to be patent. He has a history of hypertension dyslipidemia and diabetes mellitus type 2. He has a history of peripheral arterial disease with infrapopliteal disease on Doppler exam March 2012 and required a left kvxjp-dfm-yarc amputation November 2021 for nonhealing ulcers. Review of systems: No recent syncope PND orthopnea palpitations or edema. No fevers sweats or chills. No hemoptysis hematemesis or melena. Allergies: No known allergies Social history: He has been a smoker and social drinker Surgical history as above. Medications: He is taking metformin. Did not listed on his home medicines but he states he has been compliant with his isosorbide aspirin metoprolol and atorvastatin. Physical exam: Blood pressure is running 110 systolic heart rate in the 60s he has a low-grade temperature of 99. Currently there was no elevation of the jugular venous pressure. No bruits are heard S1 normal S2 physiologically split. No murmur appreciable. Abdomen is soft. Previous amputation is noted. Laboratory studies: White count 7.3 hemoglobin 12 platelet count [id number]. Basic metabolic panel yesterday showed a potassium 4.4 BUN 29 creatinine 1.5 with estimated GFR of 46 improved from a GFR of 40 the day before. Chest x-ray: This is a portable film. Post sternotomy changes are noted. Heart size is borderline enlarged. No no effusions or infiltrates. No pneumothorax and trachea is midline. Assessment: 1. Acute IL probably within the last 48 hours. 2. CAD status post aortocoronary bypass graft surgery x4 in 2004 with patent grafts and distal disease at catheterization 2012 3. Peripheral arterial disease status post left [id number]-vfny amputation November 2021 4. Carotid artery disease status post left internal carotid artery stenting June 2013 with patent stent 2017 5. 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 Chronic kidney disease stage IIIB improving to three a while here in the hospital 7. Hypertension 8. Dyslipidemia 9. History of tobacco dependence Plan: At this point troponins are coming down and the patient is pain-free. I will check an EKG today to see if he evolved any Q-waves. A 2D echo will be used to assess LV function and wall motion. We will continue with heparin and add aspirin and clopidogrel beta juan a and statin to his regimen. No murmurs are audible at this time. Depending on clinical course he may benefit from cardiac catheterization or a Lexiscan Cardiolite stress test for risk stratification prior to discharge. A lipid panel will be checked. His last carotid Doppler exam appears to be 2017 and a follow up carotid Doppler study has been ordered. DARRYL SR MD Oct 22, 2024 13:37
[2024-10-22] MEDS: cloPIDOgrel 300MG TAB PO ONE (14:23)
--- NOTE | 2024-10-22 14:52 | PN ---
INFECTIOUS DISEASE PROGRESS NOTE Date of Service: Oct 22, 2024 SUBJECTIVE: Patient was seen and examined at bedside in room 204. Patient is awake, alert but has forgetful episodes. Patient's daughter visiting at bedside. No dyspnea observe. Patient denying chest pain at this time. Jerry montes has been evaluated by Cardiology. No nausea or vomiting. The preliminary urine cultures results growing Gram-positive cocci in clusters. We will start patient on ceftriaxone 1 g IV daily. We will follow up on the final culture results. PHYSICAL EXAM EYES: Anicteric. Pupils equal and reactive. HENT: No oral thrush seen, moist Oral mucosa. NECK: Supple, no JVD or thyromegaly. LUNGS: Good air entry. No rales, no rhonchi. CARDIOVASCULAR: S1, S2 regular. No murmur heard. ABDOMEN: Soft, non tender, bowel sounds present, no organomegaly. CENTRAL NERVOUS SYSTEM: Awake, alert, oriented x 2. SKIN: No rashes, no swelling. LYMPHATICS: No peripheral lymphadenopathy. MUSCULOSKELETAL: No joint swelling, erythema or tenderness. EXTREMITIES: No cyanosis or clubbing. BACK: No deformity, no pressure ulcer. GENITOURINARY: No dysuria or hematuria. Vital Sign (Last 12 Hours) 10/22/24 10/22/24 10/22/24 10/22/24 04:11 04:45 07:00 11:00 Temp 98.1 98.2 99.0 Pulse 100 61 67 63 Resp 18 20 20 B/P (MAP) 100/40 112/44 101/52 109/57 Pulse Ox 98 97 95 O2 Delivery Room Air Room Air Room Air Intake & Output (last 24hrs) 10/21/24 10/21/24 10/22/24 15:00 23:00 07:00 Intake Total 81.2 ml 62.2 ml Balance 81.2 ml 62.2 ml LABS: Laboratory: Test 10/22/24 11:15 10/22/24 11:01 10/22/24 04:50 10/21/24 13:41 Range/Units Whole Blood Glucose 297 #H 70-110 MG/DL Bedside Glucose Comment Notified Nurse Activated Partial Thromboplast Time 60.4 H 26.3-35.5 SEC White Blood Count 7.3 4.8-10.8 K/uL Red Blood Count 3.97 L 4.50-6.20 MIL/uL Hemoglobin 12.0 L 14.0-18.0 g/dL Hematocrit 37.4 L 42-54 % Mean Corpuscular Volume 94.2 79-99 fL Mean Corpuscular Hemoglobin 30.2 27.0-33.0 pg Mean Corpuscular Hemoglobin Concent 32.1 32.0-36.0 g/dL Red Cell Distribution Width 13.5 11.0-15.5 % Platelet Count 223 130-400 K/uL Mean Platelet Volume 12.5 H 7.5-10.5 fL Immature Granulocyte % (Auto) 0.6 0-1 % Neutrophils (%) (Auto) 51.5 40.0-77.0 % Lymphocytes (%) (Auto) 36.9 21.0-51.0 % Monocytes (%) (Auto) 8.5 3.0-13.0 % Eosinophils (%) (Auto) 1.9 0.0-8.0 % Basophils (%) (Auto) 0.6 0.0-5.0 % Neutrophils # (Auto) 3.8 1.8-7.7 K/uL Lymphocytes # (Auto) 2.7 1.0-4.8 K/uL Monocytes # (Auto) 0.6 0.1-1.0 K/uL Eosinophils # (Auto) 0.14 0.00-0.70 K/uL Basophils # (Auto) 0.04 0.00-0.20 K/uL Absolute Immature Granulocyte (auto 0.04 0-1 K/uL Nucleated Red Blood Cells 0.0 0.0-0.19 % Sodium Level 138 136-145 mmol/L Potassium Level 4.4 3.5-5.1 mmol/L Chloride Level 101 101-111 mmol/L Carbon Dioxide Level 30 21-32 mmol/L Blood Urea Nitrogen 28 H 7-18 mg/dL Creatinine 1.7 H 0.5-1.3 mg/dL Glomerular Filtration Rate Calc 40 >90 mL/min Random Glucose 172 H 70-105 mg/dL Total Calcium 9.3 8.5-10.1 mg/dL Magnesium Level 1.80 1.80-2.40 mg/dL Prothrombin Time 10.6 9.6-11.6 SEC Prothromb Time International Ratio 1.00 0.85-1.15 Test 10/21/24 13:30 10/21/24 04:52 10/20/24 23:35 10/20/24 21:56 Range/Units Troponin I High Sensitivity 2701 *H 4-75 ng/L Hemoglobin A1c 7.9 H 4.0-6.0 % Estimated Average Glucose (eAG) 180 H 70-126 mg/dL Triglycerides Level 59 30-200 mg/dL Cholesterol Level 161 <200 mg/dL LDL Cholesterol 96 0-99 mg/dL HDL Cholesterol 55 29-71 mg/dL Urine Color LIGHT-YELLOW YELLOW Urine Appearance CLEAR CLEAR Urine pH 5.0 5.0-8.0 Urine Specific [place] 1.018 1.001-1.031 Urine Protein 20 H NEGATIVE mg/dL Urine Glucose (UA) >=1000 H NEGATIVE mg/dL Urine Ketones NEGATIVE NEGATIVE mg/dL Urine Occult Blood NEGATIVE NEGATIVE Urine Nitrate NEGATIVE NEGATIVE Urine Bilirubin NEGATIVE NEGATIVE mg/dL Urine Urobilinogen 0.2 0.2-1.0 mg/dL Urine Leukocyte Esterase 500 H NEGATIVE Susan/uL Urine RBC 2-5 H 0-1 /HPF Urine WBC 51-100 H 0-1 /HPF Urine Squamous Epithelial Cells RARE 0-2 /HPF Urine Bacteria RARE None Seen /HPF Total Creatine Kinase 56 21-232 U/L B-Type Natriuretic Peptide 138 H 0-100 pg/mL DIAGNOSTICS / RADIOLOGY: PATIENT: RADHA MENDOZA ACCT: [id number] LOC: 2A U: [id number] AGE/SX: 79/M ROOM: [facility] RE10/20/[address]: CRISSY VEGA MD : 1945 BED: 1 DIS: STATUS: ADM IN TLOC: SPEC: [id number] NIA: 10/20/24 STATUS: RES REQ: [id number] RECD: 10/21/[address] [facility] [address]: CONNIE BELTRÁN MD SOURCE: [facility] [place] ENTR: 10/21/[address] [facility] [address]: CRISSY VEGA MD [facility]: FATOUMATA LOPEZDOTTIE MD ORDERED: AERO ID & SENS Procedure Result Flaquita Date-Time AEROBIC ID & SENSITIVITIES Preliminary 10/22/24 MRL COLONY DESCRIPTION: DAY 1: COLONY COUNT: >100,000 CFU/ML GRAM POSITIVE COCCI IN CLUSTERS STAPHYLOCOCCUS AUREUS SENSITIVITY TO FOLLOW Test(s) performed by: [facility] [address] [place] [address] ASSESSMENT: Fxn-ZE-waazdeiku myocardial infarction. Urinary tract infection. History of CABG. Diabetes mellitus. Chronic tobacco use. PLAN: Start ceftriaxone 1 g IV every 24 hours. We will follow up on the urine cultures results. Continue heparin drip. Cardiology has evaluated patient. Continue aspirin. We will monitor electrolytes. Nursing to list home medications for review. This case was reviewed and discussed with my supervising physician and the above assessment and plan was formulated and agreed upon. ATTESTATION BY PHYSICIAN I have seen and examined the patient. I reviewed the documentation, medical deci vijaya making, and treatment plan as noted by the mid-level provider above. I agree with the findings and plan of care. CRISSY VEGA MD, [facility] Oct 22, 2024 14:52
--- NOTE | 2024-10-22 16:08 | PN ---
MEDICAL FOLLOWUP NOTE DATE OF SERVICE: 10/22/2024 SUBJECTIVE: The patient is seen and examined at bedside today. No fever or chills. Chest pain has resolved. No palpitation or orthopnea. Denied cough, shortness of breath. Tolerating orally. No dysuria or urinary frequency. No depression. No suicidal ideation. PHYSICAL EXAMINATION: VITAL SIGNS: Temperature today 97.5. EYES: No icterus. Pupils equal and reactive. HENT: No oral thrush seen. Moist oral mucosa. NECK: Supple, no JVD or thyromegaly. LUNGS: Good air entry. No rales, no rhonchi. CARDIOVASCULAR: S1, S2 regular. No murmur heard. ABDOMEN: Full, soft, nontender. Bowel sounds present. CENTRAL NERVOUS SYSTEM: Awake, alert, oriented x 3. No focal deficits. SKIN: No rashes, no itchiness. LYMPHATIC: No peripheral lymphadenopathy. BACK: No deformity, no pressure ulcer. MUSCULOSKELETAL: No joint swelling, erythema or tenderness. ASSESSMENT: An 79-year-old male presenting with chest pain. CURRENT PROBLEMS: Include: * Rmv-AH-rlysdhxgk myocardial infarction. * Urinary tract infection. * Hypertension. * Chronic tobacco use. * History of coronary artery disease. * Debility. PLAN: * Continue ceftriaxone * Continue antiplatelet. * Continue antihypertensive. * Continue nutritional support. * Monitor electrolytes and correct as needed. * Follow up cultures. TID: [id number] RECEIPT: [id number]
--- NOTE | 2024-10-22 16:23 | EKG ---
[facility] Test Date: 2024-10-22 Test Time: 13:57:57 Pat Name: RADHA MENDOZA Department: [facility] Room: 204 1 Gender: M Respiratory Coordinator: IS : 1945 Requested By: FIDEL SR Order Number: [id number] Reading MD: Fidel Sr Measurements Intervals [place] Rate: 70 P: 11 NE: 151 QRS: 20 QRSD: 102 T: 0 QT: 389 QTc: 421 Interpretive Statements Sinus rhythm Probable left atrial enlargement Inferior infarct, old Nonspecific T abnormalities, lateral leads Early repolarization unchanged from 10/20/2034 Electronically Signed On 10-23-2024 14:56:15 CDT by Fidel Sr Please click the below link to view image of tracing.
[2024-10-22] MEDS: MAGNESIUM 2GM PREMIX 50ML 50 ML IV SCH (18:15)
[2024-10-22] MEDS: metoPROLOL tartRATE 25 MG TAB PO SCH (21:18)
[2024-10-22] MEDS: atorVAStatin 40 MG TABLET PO SCH (21:18)
[2024-10-22] MEDS: acetaMINOPHEN 325 MG TAB PO PRN (21:26)
[2024-10-23] VITALS (9 sets, daily range): BP systolic 103–134; BP diastolic 35–67; PULSE 53–65; RESP 15–18; TEMP 98.1–98.5; O2SAT 96–97
[2024-10-23 04:02] LABS: BASOPHILS # (AUTO) 0.03 K/uL (0.00-0.20); BASOPHILS % (AUTO) 0.5 % (0.0-5.0); EOSINOPHILS # (AUTO) 0.19 K/uL (0.00-0.70); EOSINOPHILS % (AUTO) 2.9 % (0.0-8.0); HEMATOCRIT 35.7 % (42-54); IMMATURE GRANULOCYTE ABSOLUTE 0.03 K/uL (0-1); LYMPHOCYTES % (AUTO) 30.1 % (21.0-51.0); MEAN CORPUSCULAR HEMOGLOBIN 30.6 pg (27.0-33.0); MEAN CORPUSCULAR HGB CONC 33.1 g/dL (32.0-36.0); MEAN CORPUSCULAR VOLUME 92.7 fL (79-99); MONOCYTES # (AUTO) 0.7 K/uL (0.1-1.0); NEUTROPHILS # (AUTO) 3.7 K/uL (1.8-7.7); PLATELET COUNT (AUTO) 192 K/uL (130-400); RED BLOOD CELL COUNT(AUTO) 3.85 MIL/uL (4.50-6.20); RED CELL DISTRIBUTION WIDTH 13.4 % (11.0-15.5); WHITE BLOOD COUNT (AUTO) 6.5 K/uL (4.8-10.8)
[2024-10-23 04:11] LABS: CREATININE 1.8 mg/dL (0.5-1.3); MAGNESIUM 2.1 mg/dL (1.80-2.40); POTASSIUM 4.2 mmol/L (3.5-5.1)
[2024-10-23] MEDS: cloPIDOgrel 75MG TAB PO SCH (08:58)
--- NOTE | 2024-10-23 09:56 | PN ---
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 He is on aspirin has been noted with Plavix. He is on low-dose beta-juan a and high-dose statin. LDL was 96; med rec paid suggested noncompliance with cardiac medications. Patient is resting comfortably in bed, denying any symptoms at this time. No chest discomfort, shortness of breath, palpitations. No significant bradycardia noted. No reports of bleeding] PHYSICAL EXAMINATION: Vital Signs (Last 48hrs) Date Time Temp Pulse Resp B/P (MAP) Pulse Ox O2 Delivery O2 Flow Rate FiO2 10/23/24 08:28 97 Room Air* 0 10/23/24 07:00 98.4 54 15 124/65 99 Room Air 10/23/24 03:24 98.1 53 18 111/46 92 Room Air 10/23/24 00:05 98.4 55 18 117/66 98 Room Air 10/22/24 20:00 98 Room Air* 0 10/22/24 19:03 98.4 63 18 154/55 98 Room Air 10/22/24 16:00 98.1 71 20 116/69 96 Room Air 10/22/24 11:00 99.0 63 20 109/57 95 Room Air 10/22/24 08:00 97 Room Air* 0 10/22/24 07:00 98.2 67 20 101/52 97 Room Air 10/22/24 04:45 61 112/44 10/22/24 04:11 98.1 100 18 100/40 98 Room Air 10/22/24 00:18 98.4 59 18 118/43 91 Room Air 10/21/24 20:40 94 Room Air* 0 10/21/24 19:12 98.4 54 18 149/98 93 Room Air 10/21/24 15:10 98 Room Air* 0 21 10/21/24 15:00 97.9 57 16 114/60 99 Room Air 10/21/24 11:55 97.9 63 18 139/65 100 Room Air General: Resting comfortably, no acute distress. HEENT: Atraumatic. Hearing is intact. No facial asymmetry, nasal discharge, icterus or lid lag. Cardiovascular: Rhythm and rate regular. No murmur. No edema. Respiratory: Lungs clear to the bases. No retractions, wheezes or rhonchi. Gastrointestinal: Benign, soft, nontender, nondistended. Extremities: Left BKA. Range of motion is grossly normal. Neurology/Psychiatry: No tremors. Speech is clear. Alert and oriented x 3. Cooperative and pleasant. LABORATORY DATA: [ Laboratory Tests Test 10/22/24 11:01 10/22/24 11:15 10/22/24 17:01 10/23/24 03:57 Activated Partial Thromboplast Time 60.4 SEC (26.3-35.5) H 54.6 SEC (26.3-35.5) H 56.7 SEC (26.3-35.5) H Whole Blood Glucose 297 MG/DL (70-110) #H Bedside Glucose Comment Notified Nurse White Blood Count 6.5 K/uL (4.8-10.8) Red Blood Count 3.85 MIL/uL (4.50-6.20) L Hemoglobin 11.8 g/dL (14.0-18.0) L Hematocrit 35.7 % (42-54) L Mean Corpuscular Volume 92.7 fL (79-99) Mean Corpuscular Hemoglobin 30.6 pg (27.0-33.0) Mean Corpuscular Hemoglobin Concent 33.1 g/dL (32.0-36.0) Red Cell Distribution Width 13.4 % (11.0-15.5) Platelet Count 192 K/uL (130-400) Mean Platelet Volume 10.9 fL (7.5-10.5) H Immature Granulocyte % (Auto) 0.5 % (0-1) Neutrophils (%) (Auto) 56.0 % (40.0-77.0) Lymphocytes (%) (Auto) 30.1 % (21.0-51.0) Monocytes (%) (Auto) 10.0 % (3.0-13.0) Eosinophils (%) (Auto) 2.9 % (0.0-8.0) Basophils (%) (Auto) 0.5 % (0.0-5.0) Neutrophils # (Auto) 3.7 K/uL (1.8-7.7) Lymphocytes # (Auto) 2.0 K/uL (1.0-4.8) Monocytes # (Auto) 0.7 K/uL (0.1-1.0) Eosinophils # (Auto) 0.19 K/uL (0.00-0.70) Basophils # (Auto) 0.03 K/uL (0.00-0.20) Absolute Immature Granulocyte (auto 0.03 K/uL (0-1) Nucleated Red Blood Cells 0.0 % (0.0-0.19) Sodium Level 137 mmol/L (136-145) Potassium Level 4.2 mmol/L (3.5-5.1) Chloride Level 100 mmol/L (101-111) L Carbon Dioxide Level 31 mmol/L (21-32) Blood Urea Nitrogen 32 mg/dL (7-18) H Creatinine 1.8 mg/dL (0.5-1.3) H Glomerular Filtration Rate Calc 37 mL/min (>90) Random Glucose 215 mg/dL (70-105) H Total Calcium 9.2 mg/dL (8.5-10.1) Magnesium Level 2.10 mg/dL (1.80-2.40) ] RADIOLOGY: [Echo is pending] PLAN: [Patient had troponin rising to 3100 then falling to 2700. At this time he is asymptomatic. He has known coronary disease with an abnormal Lexiscan in 2018, medically managed. We will await echocardiogram. If his EF is preserved, will proceed with ischemia driven workup. Continue aspirin, Plavix, heparin for 48 hours. Continue low-dose beta-juan a and statin.] NATHANAEL DENISE PAC Oct 23, 2024 09:56
[2024-10-23] MEDS ORDERED: GLIM4TAB36 PO (10:51)
[2024-10-23] MEDS ORDERED: AMIT25TA9 PO (10:51)
--- NOTE | 2024-10-23 11:50 | HP ---
DATE OF ADMISSION: 10/20/2024 HISTORY AND PHYSICAL PRESENTING COMPLAINT: Chest pain. HISTORY OF PRESENT ILLNESS: An 79-year-old male with history of UTI, hypertension, dyslipidemia, chronic tobacco use and CAD, presented to the hospital with chest pain. Pain localized to the left side, pressure-like and radiating to the jaw and arm. The patient denied palpitation or orthopnea. Pain is about 8/10 in intensity. Denied trauma or fall. No pleuritic pain. No orthopnea or PND. Troponin initially was found to be 100 and EKG shows sinus rhythm with old inferior wall infarction. PAST MEDICAL HISTORY: * UTI. * Hypertension. * Dyslipidemia. * Diabetes mellitus. * Peripheral vascular disease. * Coronary artery disease. * Chronic tobacco use. PAST SURGICAL HISTORY: * CABG. * Left below-knee amputation. * Cardiac catheterization. * Peripheral angiogram. ALLERGIES: No known drug allergy. HOME MEDICATIONS: The patient claims only metformin. SOCIAL HISTORY: Smoke, no alcohol or illicit drug use. Lives with daughter. FAMILY HISTORY: Positive for diabetes mellitus. REVIEW OF SYSTEMS: CONSTITUTIONAL: No fever, no chills, no weight loss or night sweats. EYES: No eye pain,. No photophobia or diplopia. HENT: No sore throat. No rhinorrhea or earache. NECK: No neck pain or neck swelling. RESPIRATORY: Denied cough, hemoptysis or pleuritic pain. CARDIOVASCULAR: No chest pain. No palpitations or orthopnea. GASTROINTESTINAL: No nausea, vomiting or abdominal pain. GENITOURINARY: No dysuria, urgency or urinary frequency. CENTRAL NERVOUS SYSTEM: No headache, dizziness or slurred speech. PSYCHIATRY: No depression. No suicidal ideation. MUSCULOSKELETAL: No joint pain or joint swelling. PHYSICAL EXAMINATION: GENERAL: Elderly male, awake. VITAL SIGNS: Temperature 98.2, pulse 86, respirations 20, BP 165/87. EYES: No icterus. Pupils equal and reactive. HENT: No oral lesions seen. Moist oral mucosa. BACK: Supple. No JVD or thyromegaly. LUNGS: Good air entry. No rales, no rhonchi. CARDIOVASCULAR: S1, S2 regular. No murmur heard. ABDOMEN: Full, soft, nontender. Bowel sound is present. CENTRAL NERVOUS SYSTEM: Awake, alert and oriented x 3. No focal deficits. SKIN: No rashes. No itchiness. LYMPHATIC: No peripheral lymphadenopathy. BACK: No deformity. No pressure ulcer. MUSCULOSKELETAL: No joint swelling, erythema or tenderness. LABORATORY DATA: Troponin 100. Sodium 136, potassium 4.0, BUN 29, creatinine 1.7. WBC 6.4, hemoglobin 11.9, platelet 205. Urinalysis, wbc's 100, leukocyte esterase 500. ASSESSMENT: An 79-year-old male presenting with chest pain. CURRENT PROBLEMS: Include: * Srp-PO-xfmvcbjxp myocardial infarction. * Urinary tract infection. * Diabetes mellitus. * Hypertension. * Obesity. * Chronic tobacco use. * Chronic renal insufficiency. PLAN: * The patient admitted to medical floor with telemetry. * The patient will be placed on heparin drip. * The patient will be placed on aspirin. * Lispro sliding scale. * ADA diet. * Morphine as needed for pain. * Start the patient on ceftriaxone. * Cardiology evaluation. * Home medications will be reconciled. TID: [id number] RECEIPT: [id number] MTD
[2024-10-23] MEDS: DOXYCYCLINE HYCLATE 100 MG TABLET PO SCH (12:28)
--- NOTE | 2024-10-23 14:46 | HMCSR ---
APPROVED REPORT EXAM: Two-dimensional and M-mode echocardiogram with Doppler and color Doppler. INDICATION ICD: Acute myocardial infarction 2D Dimensions RVDd3.7 cmLVEF(%)40.4 (>50%)LVEF(%, simp.)50 % IVSd1.3 (0.7-1.1cm)FS(%)20 %LA ESV INDEX (BP)28.83 mL/m2 LVDd4.7 (3.8-5.6cm)LA (2D)3.9 (1.6-4.0cm) PWd0.8 (0.7-1.1cm)Ao Root(2D)3.3 (2.0-3.7cm) IVSs1.6 cmLVOT diam2.0 (1.8-2.4cm) LVDs3.7 (2.5-4.0cm)IVC diam1.7 cm PWs0.9 cm Deformation Strain Apical 4-10.0 % Apical 2-13.0 % Apical 3-12.0 % Global Strain-12.0 % M-Mode Dimensions EPSS0.7 cm LA (MM)4.2 (1.6-4.0cm) Ao Root(MM)3.5 (2.0-3.7cm) Aortic Valve AoV Vmax1.0 m/Moi Peak GR4.2 mmHgLVOT Vmax0.7 m/s AoV VTI0.3 mAo Mean GR2.4 mmHgLVOT VTI0.18 m OBDULIA (VMAX)2.0 cm2AVA (VTI) 2.0 cm2 Mitral Valve MV E Vmax79.8 cm/sDECEL Huxl196 ms MV A Vmax95.1 cm/sP 1/2 T67 ms E/A ratio0.8MVA (PHT)3.3 cm2 TDI E/E' Hwbrpm45.0E/E' Ssqmksy70.0 Medial E' Peak V5.00 cm/sLateral E' Peak V8.00 cm/s Pulmonary Valve PV Vmax1.0 m/s Tricuspid Valve TR Vmax2.6 m/sRAP (EST) 3 mcBrFXHO68.7 mmHg TR Peak GR27.7 mmHg Left Ventricle The left ventricle is normal size. GLS -12.0%. Hypokinetic anterior, apex and septal harris. There is normal left ventricular wall thickness. LVEF is 30-35%. Stage I diastolic dysfunction. Right Ventricle The right ventricle is normal size. Right ventricular systolic function is mildly reduced. Atria The left atrium size is normal. The right atrium size is normal. Aortic Valve Aortic valve is trileaflet mildly thickened and opens well. Mild aortic regurgitation is present. The re is no aortic valvular stenosis. Mitral Valve The mitral valve is normal in structure. There is mild mitral valve regurgitation noted. There is no mitral valve stenosis. Tricuspid Valve The tricuspid valve is normal in structure. There is trace tricuspid regurgitation. Pulmonic Valve The pulmonary valve is normal in structure. There is no pulmonic valvular regurgitation. Great Vessels The aortic root is normal in size. The IVC is normal in size and collapses >50% with inspiration. Pericardium There is no pericardial effusion. Other Information Quality : Adequate Conclusion LVEF is 30-35%. GLS -12.0%. Hypokinetic anterior, apex and septal harris. Mild aortic regurgitation is present. There is mild mitral valve regurgitation noted.
--- NOTE | 2024-10-23 18:15 | PN ---
INFECTIOUS DISEASE FOLLOWUP NOTE DATE OF SERVICE: 10/23/2024 SUBJECTIVE: The patient is seen and examined at bedside today. No fever or chills. No nausea or vomiting. No abdominal pain. No cough, no shortness of breath, no palpitation or orthopnea. Chest pain has resolved. The patient remained on heparin drip. The patient has been seen by Cardiology. Pending echocardiogram and stress test. PHYSICAL EXAMINATION: VITAL SIGNS: Temperature 98.7. EYES: No icterus. Pupils equal and reactive. HENT: No oral thrush seen. Moist oral mucosa. NECK: Supple, no JVD or thyromegaly. LUNGS: Good air entry. No rales, no rhonchi. CARDIOVASCULAR: S1, S2 regular. No murmur heard. ABDOMEN: Full, soft, nontender. Bowel sound is present. CENTRAL NERVOUS SYSTEM: Awake, alert, oriented x 3. No focal deficits. SKIN: No rashes, no itchiness. LYMPHATIC: No peripheral lymphadenopathy. BACK: No deformity, no pressure ulcer. MUSCULOSKELETAL: No joint swelling, erythema or tenderness. ASSESSMENT: An 79-year-old male admitted with chest pain. Problems include: * Urinary tract infection. * Izj-YM-hlgykjwch myocardial infarction. * Hypertension. * Coronary artery disease. * Chronic tobacco use. PLAN: * Continue heparin drip. * Continue pain management. * Continue antihypertensive. * Continue nutritional support. * Continue antiemetics. * Continue doxycycline. TID: [id number] RECEIPT: [id number]
[2024-10-24] VITALS (9 sets, daily range): BP systolic 106–128; BP diastolic 39–96; PULSE 60–74; RESP 16–20; TEMP 98.2–99.4; O2SAT 97–98
[2024-10-24 04:50] LABS: CREATININE 1.7 mg/dL (0.5-1.3); POTASSIUM 4.8 mmol/L (3.5-5.1)
[2024-10-24] MEDS: HEParin 5,000 UNIT VIAL IV ONE (06:24)
--- NOTE | 2024-10-24 07:15 | NUR ---
Dr Altamirano spoke with patient and daughter at bedside after examination. Discussed options for care in detail. Patient opted for medication treatment only, no operation, no procedures.
--- NOTE | 2024-10-24 07:33 | PN ---
PROBLEM LIST: * Nontransmural MS with a troponin of 3100. * Known history of coronary artery disease with remote coronary artery bypass graft surgery x 4 in 2004 with documentation of patent grafts and distal disease by cardiac catheterization in 2012. * History of lateral wall ischemia documented by B-Obviousiscan Cardiolite in 06/2018, being managed medically as per the patient's request. * History of severe peripheral vascular disease with left lower extremity below-knee amputation in 11/2021. * Carotid artery disease, status post left internal carotid artery stenting in 06/2013 with documentation of patent stent in 2017. 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 * Chronic kidney disease, stage 3B. * History of hypertension. * Dyslipidemia. * History of tobacco dependence, counseled extensively. * Noncompliance with outpatient followup. * Frail octogenarian. This gentleman has been hospitalized because of symptoms of chest discomfort. He has been evaluated and assessed by the [facility] team and noted to have elevated cardiac enzymes consistent with a nontransmural myocardial infarction. The patient had been managed with clopidogrel, atorvastatin, metoprolol, and a baby aspirin. He has also been receiving p.r.n. medications and doxycycline. On assessing the patient this morning, he states that he is not having any symptoms of chest discomfort or shortness of breath. He has denied any palpitations or any other complaints. The patient's vital signs are stable. He is afebrile. His heart rate is in the 50s and 60s. His respiratory rate is 16-18. His blood pressure is 115-130 systolic range. He is saturating at 94-96% on room air and is lying flat and comfortable. The cardiac exam is remarkable for a soft S1 and a normal S2. The patient has a soft physiologic murmur. There are no diastolic murmurs, rubs, or gallops. The lungs are remarkable for adequate air entry bilaterally. The patient has a soft, benign abdomen. The left lower extremity has an amputation lgodu-wqk-olrf and the patient has nonpalpable pulses in the right leg. Laboratory studies this morning revealed a sodium of 137, potassium 4.8, chloride is 100, CO2 is 29, his BUN is 13, creatinine is 1.7 with a GFR of 40, similar to this admission measurements. The patient has a random glucose of 229. His calcium is 9.2 and magnesium is 2.0. White count of 6.5, H and H of 11.8 and 35.7 respectively, platelet count is currently 192,000. Today, I have had a detailed discussion with the patient and his daughter who was in attendance for my evaluation and exam. I have reviewed the patient's status and findings and in particular, the significant drop in the left ventricular ejection fraction now measuring 30-35%. The patient was also noted to have mild aortic regurgitation and mild mitral regurgitation. I discussed the option of additional assessment with cardiac catheterization and coronary arteriography with an eye towards a percutaneous intervention or possible surgical revascularization if warranted. I have also discussed the option of continued medical management. After a detailed discussion and review of the benefits, goals and risks, the patient declined any form of invasive or interventional measurement at this time and wishes to continue with conservative medical management. Given that, we will cautiously add Entresto and we have to observe the patient's chemistries carefully. He will be maintained on medical management only as per his request. Overall, prognosis remains guarded. I have counseled the patient in regards to his nicotine habit. I have also counseled in regards to outpatient followup. TID: [id number] RECEIPT: [id number]
[2024-10-24] MEDS: SACUBITRIL/VALSARTAN 1 EACH TABLET PO SCH (11:23)
[2024-10-24] MEDS: INSULIN LISpro 100 UNIT/ML 3ML SQ SCH (20:42)
[2024-10-24] MEDS: NITROGLYCERIN 0.4 MG SL TAB SL PRN (21:19)
--- NOTE | 2024-10-24 21:21 | NUR ---
Chest Pain 10/24/242038: patient called and stated his chest pain located in near left side of his chest, pain level 6/10, no radiating pain, and is intermittent. 2039: patient states he is pain free at this time, order obtained from Dr. Herrera for sublingual nitro for chest pain. 2118: patient complaining of left sided chest pain, intermittent, 6/10 pain level, with no radiating pain. Vitals charted HR: 61 RR: 20 Spo2: 97 on RA BP: 113/39. Nitro x1 tab given at this time. 2120: patient reports no chest pain at this time, educated pain to report any further chest pain.
--- NOTE | 2024-10-24 21:52 | PN ---
INFECTIOUS DISEASE PROGRESS NOTE Date of Service: Oct 24, 2024 SUBJECTIVE: Patient was seen and examined at bedside in room 204. Patient is awake and alert. Denying chest pain at this time. No fever, temperature is 98.2. Renal function remains about the same, BUN is 30 and creatinine is 1.7. Patient continues to declined the heart catheterization recommended by Cardiology and prefers medical management. Nursing to contact router operator radial to clarify whether to continue the heparin drip. Patient's family present at bedside. Patient continues on doxycycline p.o. every 12 hours for urine culture for Staphylococcus epidermidis. We will continue to follow patient's care. PHYSICAL EXAM EYES: Anicteric. Pupils equal and reactive. HENT: No oral thrush seen, moist Oral mucosa. NECK: Supple, no JVD or thyromegaly. LUNGS: Good air entry. No rales, no rhonchi. CARDIOVASCULAR: S1, S2 regular. No murmur heard. ABDOMEN: Soft, non tender, bowel sounds present, no organomegaly. CENTRAL NERVOUS SYSTEM: Awake, alert, oriented x 2. SKIN: No rashes, no swelling. LYMPHATICS: No peripheral lymphadenopathy. MUSCULOSKELETAL: No joint swelling, erythema or tenderness. EXTREMITIES: No cyanosis or clubbing. BACK: No deformity, no pressure ulcer. GENITOURINARY: No dysuria or hematuria. Vital Sign (Last 12 Hours) 10/24/24 10/24/24 10/24/24 10/24/24 11:00 16:00 20:00 21:19 Temp 98.2 99.3 99.1 Pulse 62 74 61 61 Resp 16 17 20 20 B/P (MAP) 115/43 106/43 126/96 113/39 Pulse Ox 98 96 96 97 O2 Delivery Room Air Room Air Room Air Room Air Intake & Output (last 24hrs)0 10/23/24 10/23/24 10/24/24 15:00 23:00 07:00 Intake Total 720 ml 147.0 ml 76.4 ml Balance 720 ml 147.0 ml 76.4 ml LABS: Laboratory: Test 10/24/24 19:10 10/24/24 17:48 10/24/24 04:28 10/23/24 03:57 Range/Units Whole Blood Glucose 363 H 70-110 MG/DL Bedside Glucose Comment Notified Nurse Activated Partial Thromboplast Time 45.0 #H 26.3-35.5 SEC Sodium Level 137 136-145 mmol/L Potassium Level 4.8 3.5-5.1 mmol/L Chloride Level 100 L 101-111 mmol/L Carbon Dioxide Level 29 21-32 mmol/L Blood Urea Nitrogen 30 H 7-18 mg/dL Creatinine 1.7 H 0.5-1.3 mg/dL Glomerular Filtration Rate Calc 40 >90 mL/min Random Glucose 229 H 70-105 mg/dL Total Calcium 9.3 8.5-10.1 mg/dL Magnesium Level 2.00 1.80-2.40 mg/dL White Blood Count 6.5 4.8-10.8 K/uL Red Blood Count 3.85 L 4.50-6.20 MIL/uL Hemoglobin 11.8 L 14.0-18.0 g/dL Hematocrit 35.7 L 42-54 % Mean Corpuscular Volume 92.7 79-99 fL Mean Corpuscular Hemoglobin 30.6 27.0-33.0 pg Mean Corpuscular Hemoglobin Concent 33.1 32.0-36.0 g/dL Red Cell Distribution Width 13.4 11.0-15.5 % Platelet Count 192 130-400 K/uL Mean Platelet Volume 10.9 H 7.5-10.5 fL Immature Granulocyte % (Auto) 0.5 0-1 % Neutrophils (%) (Auto) 56.0 40.0-77.0 % Lymphocytes (%) (Auto) 30.1 21.0-51.0 % Monocytes (%) (Auto) 10.0 3.0-13.0 % Eosinophils (%) (Auto) 2.9 0.0-8.0 % Basophils (%) (Auto) 0.5 0.0-5.0 % Neutrophils # (Auto) 3.7 1.8-7.7 K/uL Lymphocytes # (Auto) 2.0 1.0-4.8 K/uL Monocytes # (Auto) 0.7 0.1-1.0 K/uL Eosinophils # (Auto) 0.19 0.00-0.70 K/uL Basophils # (Auto) 0.03 0.00-0.20 K/uL Absolute Immature Granulocyte (auto 0.03 0-1 K/uL Nucleated Red Blood Cells 0.0 0.0-0.19 % DIAGNOSTICS / RADIOLOGY: PATIENT: RADHA MENDOZA ACCT: [id number] LOC: 2A U: [id number] AGE/SX: 79/M ROOM: 204 RE10/20/[address]: CRISSY VEGA MD : 1945 BED: 1 DIS: STATUS: ADM IN TLOC: SPEC: [id number] NIA: 10/20/24 STATUS: COMP REQ: [id number] RECD: 10/21/[address] [facility] [address]: CONNIE BELTRÁN [place] [facility] [place]24 [facility] [place]: CRISSY VEGA MD SPDESC: CLEAN CAT LOPEZDOTTIE HOUSTON MD ORDERED: AERO ID & SENS ----- ------- Procedure Result Flaquita Date-Time AEROBIC ID & SENSITIVITIES Final 10/23/24-06 MRL COLONY DESCRIPTION: DAY 1: COLONY COUNT: >100,000 CFU/ML GRAM POSITIVE COCCI IN CLUSTERS SENSITIVITY TO FOLLOW DAY 2: NO FURTHER WORK-UP DONE STAPHYLOCOCCUS EPIDERMIDIS STA EPIDER M.I.C. RX --------- ---- GENTAMICIN <=4 S VANCOMYCIN 1 S OXACILLIN ALIZA >2 R RIFAMPIN <=1 S TETRACYCLINE <=4 S TRIMETHOPRIM/SUFLAMETHOXAZOLE <=0.5/9.5 S ASSESSMENT: Ifd-DY-uzykvaeem myocardial infarction. Urinary tract infection. History of CABG. Diabetes mellitus. Chronic tobacco use. PLAN: Continue doxycycline. We will plan to discharge patient to home once cleared by Cardiology. Continue aspirin. Currently on heparin drip. We will monitor electrolytes. This case was reviewed and discussed with my supervising physician and the above assessment and plan was formulated and agreed upon. ATTESTATION BY PHYSICIAN I have seen and examined the patient. I reviewed the documentation, medical decision making, and treatment plan as noted by the mid-level provider above. I agree with the findings and plan of care. CRISSY VEGA MD, [facility] Oct 24, 2024 21:52
[2024-10-25 04:03] VITALS: BP 112/52; PULSE 59; RESP 20; TEMP 99.2
[2024-10-25 06:34] LABS: BASOPHILS # (AUTO) 0.03 K/uL (0.00-0.20); BASOPHILS % (AUTO) 0.3 % (0.0-5.0); EOSINOPHILS # (AUTO) 0.05 K/uL (0.00-0.70); EOSINOPHILS % (AUTO) 0.5 % (0.0-8.0); HEMATOCRIT 36.8 % (42-54); IMMATURE GRANULOCYTE ABSOLUTE 0.06 K/uL (0-1); LYMPHOCYTES # (AUTO) 2.5 K/uL (1.0-4.8); LYMPHOCYTES % (AUTO) 26.1 % (21.0-51.0); MEAN CORPUSCULAR HEMOGLOBIN 30.7 pg (27.0-33.0); MEAN CORPUSCULAR HGB CONC 33.2 g/dL (32.0-36.0); MEAN CORPUSCULAR VOLUME 92.5 fL (79-99); MONOCYTES # (AUTO) 0.8 K/uL (0.1-1.0); MONOCYTES % (AUTO) 8.5 % (3.0-13.0); NEUTROPHILS # (AUTO) 6.2 K/uL (1.8-7.7); PLATELET COUNT (AUTO) 210 K/uL (130-400); RED BLOOD CELL COUNT(AUTO) 3.98 MIL/uL (4.50-6.20); RED CELL DISTRIBUTION WIDTH 13.5 % (11.0-15.5); WHITE BLOOD COUNT (AUTO) 9.7 K/uL (4.8-10.8)
[2024-10-25 06:42] LABS: CREATININE 1.8 mg/dL (0.5-1.3); MAGNESIUM 1.8 mg/dL (1.80-2.40); POTASSIUM 4.3 mmol/L (3.5-5.1)
[2024-10-25 08:00] VITALS: BP 117/56; PULSE 68; RESP 17; TEMP 99.5
--- NOTE | 2024-10-25 08:22 | PN ---
[facility] PROGRESS NOTE Date Patient Seen: Oct 25, 2024 Time of Visit: 08:15 Problem List: * Nontransmural CO with a troponin of 3100. * Known history of coronary artery disease with remote coronary artery bypass graft surgery x 4 in 2004 with documentation of patent grafts and distal disease by cardiac catheterization in 2012. * History of lateral wall ischemia documented by Lexiscan Cardiolite in 06/2018, being managed medically as per the patient's request. * History of severe peripheral vascular disease with left lower extremity below-knee amputation in 11/2021. * Carotid artery disease, status post left internal carotid artery stenting in 06/2013 with documentation of patent stent in 2018. 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 * Chronic kidney disease, stage 3B. * History of hypertension. * Dyslipidemia. * History of tobacco dependence, counseled extensively. * Noncompliance with outpatient followup. * Frail [age]ogenarian. Interval History: Pt evaluated in his room, vitals stable. He denies chest pain, sob, orthopnea. Creatinine stable, on entresto. Pt had chest pain reported last night per the daughter and nurse. Pt was given nitro x 2 SL with resolution but no further episodes. He has refused interventional testing. Pt has continued to smoke and he has stopped taking medications for extended periods of time as well. Generally noncompliant and not interested in further evaluations. Physical Examination: GENERAL: [Elderly, frail, no distress HEAD: [Normal with no signs of head trauma.] EYES: [PERRLA, EOMI, conjunctiva and sclera normal.] ENT: [Hearing grossly intact, normal oropharynx.] NECK: [Supple without JVD. There is no tenderness, lymphadenopathy, or masses. No thyromegaly. Normal carotid upstrokes without bruits.] LUNGS: [Diminished breath sounds bilaterally. ] HEART: [Normal rate and rhythm. Normal S1 and S2 with 2/6 systolic murmur noted, gallop or rub.] VASC: [Peripheral pulses +1 to right, left BKA.] ABD: [Bowel sounds normal, soft, nontender, no masses, no organomegaly. No audible bruits.] : [Not examined] LYMPH: [No lymphadenopathy noted.] EXT: [No clubbing, cyanosis or edema., left BKA] SKIN: chronic PVD changes to legs NEURO: [Awake, alert, and oriented x3. No focal sensory or strength deficits noted.] Laboratory: [ ] Hematology Labs: Test 10/25/24 06:25 Range/Units White Blood Count 9.7 4.8-10.8 K/uL Red Blood Count 3.98 L 4.50-6.20 MIL/uL Hemoglobin 12.2 L 14.0-18.0 g/dL Hematocrit 36.8 L 42-54 % Mean Corpuscular Volume 92.5 79-99 fL Mean Corpuscular Hemoglobin 30.7 27.0-33.0 pg Mean Corpuscular Hemoglobin Concent 33.2 32.0-36.0 g/dL Red Cell Distribution Width 13.5 11.0-15.5 % Platelet Count 210 130-400 K/uL Mean Platelet Volume 11.2 H 7.5-10.5 fL Immature Granulocyte % (Auto) 0.6 0-1 % Neutrophils (%) (Auto) 64.0 40.0-77.0 % Lymphocytes (%) (Auto) 26.1 21.0-51.0 % Monocytes (%) (Auto) 8.5 3.0-13.0 % Eosinophils (%) (Auto) 0.5 0.0-8.0 % Basophils (%) (Auto) 0.3 0.0-5.0 % Neutrophils # (Auto) 6.2 1.8-7.7 K/uL Lymphocytes # (Auto) 2.5 1.0-4.8 K/uL Monocytes # (Auto) 0.8 0.1-1.0 K/uL Eosinophils # (Auto) 0.05 0.00-0.70 K/uL Basophils # (Auto) 0.03 0.00-0.20 K/uL Absolute Immature Granulocyte (auto 0.06 0-1 K/uL Nucleated Red Blood Cells 0.0 0.0-0.19 % Chemistry Labs: Test 10/25/24 06:25 10/25/24 05:20 10/24/24 19:10 Range/Units Sodium Level 135 L 136-145 mmol/L Potassium Level 4.3 3.5-5.1 mmol/L Chloride Level 100 L 101-111 mmol/L Carbon Dioxide Level 26 21-32 mmol/L Blood Urea Nitrogen 38 H 7-18 mg/dL Creatinine 1.8 H 0.5-1.3 mg/dL Glomerular Filtration Rate Calc 37 >90 mL/min Random Glucose 148 H 70-105 mg/dL Total Calcium 9.1 8.5-10.1 mg/dL Magnesium Level 1.80 1.80-2.40 mg/dL Whole Blood Glucose 131 #H 70-110 MG/DL Bedside Glucose Comment Notified Nurse Coagulation Labs: Test 10/25/24 00:16 Range/Units Activated Partial Thromboplast Time 43.3 H 26.3-35.5 SEC Diagnostics / Radiology: [facility] [id number] IMAGING REPORT Signed PATIENT: RADHA MENDOZA MR#: [id number] : 1945 SEX: M AGE: 79 LOCATION: [facility] ORDER [id number] STATUS: ADM IN REPORT#: [id number] SERVICE 1310 REASON: Acute CO ORDERING PHYSICIAN: DARRYL SR MD PROCEDURE: ECHO CMP - ECHO 2-D COMPLETE APPROVED REPORT EXAM: Two-dimensional and M-mode echocardiogram with Doppler and color Doppler. INDICATION ICD: Acute myocardial infarction 2D Dimensions RVDd 3.7 cm LVEF(%) 40.4 (>50%) LVEF(%, simp.) 50 % IVSd 1.3 (0.7-1.1cm) FS(%) 20 % LA ESV INDEX (BP) 28.83 mL/m2 LVDd 4.7 (3.8-5.6cm) LA (2D) 3.9 (1.6-4.0cm) PWd 0.8 (0.7-1.1cm) Ao Root(2D) 3.3 (2.0-3.7cm) IVSs 1.6 cm LVOT diam 2.0 (1.8-2.4cm) LVDs 3.7 (2.5-4.0cm) IVC diam 1.7 cm PWs 0.9 cm Deformation Strain Apical 4 -10.0 % Apical 2 -13.0 % Apical 3 -12.0 % Global Strain -12.0 % M-Mode Dimensions EPSS 0.7 cm LA (MM) 4.2 (1.6-4.0cm) Ao Root(MM) 3.5 (2.0-3.7cm) Aortic Valve AoV Vmax 1.0 m/s Ao Peak GR 4.2 mmHg LVOT Vmax 0.7 m/s AoV VTI 0.3 m Ao Mean GR 2.4 mmHg LVOT VTI 0.18 m OBDULIA (VMAX) 2.0 cm2 OBDULIA (VTI) 2.0 cm2 Mitral Valve MV E Vmax 79.8 cm/s DECEL Time 200 ms MV A Vmax 95.1 cm/s P 1/2 T 67 ms E/A ratio 0.8 MVA (PHT) 3.3 cm2 TDI E/E' Medial 16.0 E/E' Lateral 10.0 Medial E' Peak V 5.00 cm/s Lateral E' Peak V 8.00 cm/s Pulmonary Valve PV Vmax 1.0 m/s Tricuspid Valve TR Vmax 2.6 m/s RAP (EST) 3 mmHg RVSP 30.7 mmHg TR Peak GR 27.7 mmHg Left Ventricle The left ventricle is normal size. GLS -12.0%. Hypokinetic anterior, apex and septal harris. There is normal left ventricular wall thickness. LVEF is 30-35%. Stage I diastolic dysfunction. Right Ventricle The right ventricle is normal size. Right ventricular systolic function is mildly reduced. Atria The left atrium size is normal. The right atrium size is normal. Aortic Valve Aortic valve is trileaflet mildly thickened and opens well. Mild aortic regurgitation is present. There is no aortic valvular stenosis. Mitral Valve The mitral valve is normal in structure. There is mild mitral valve regurgitation noted. There is no mitral valve stenosis. Tricuspid Valve The tricuspid valve is normal in structure. There is trace tricuspid regurgitation. Pulmonic Valve The pulmonary valve is normal in structure. There is no pulmonic valvular regurgitation. Great Vessels The aortic root is normal in size. The IVC is normal in size and collapses >50% with inspiration. Pericardium There is no pericardial effusion. Other Information Quality : Adequate Conclusion LVEF is 30-35%. GLS -12.0%. Hypokinetic anterior, apex and septal harris. Mild aortic regurgitation is present. There is mild mitral valve regurgitation noted. DICTATED BY: DARRYL SR MD DATE: 10/23/24 1146 ELECTRONICALLY SIGNED BY: DARRYL SR MD DATE: 10/23/24 1072 Impression and Plan: Pt initiated on entresto, opting for medical management over invasive testing. Creatinine elevated at 1.8 but relatively stable from admission. He continues with stable bp and hr. Pt to get OOB and attempt mobilization, he has CKD and will not tolerate jardiance/farxiga, we will need to re-eval his ef in a few mo nths to monitor for improvement. Smoking cessation reinforced. BARRY [facility] Oct 25, 2024 08:22
[2024-10-25 09:00] VITALS: O2SAT 97
[2024-10-25 12:04] VITALS: BP 96/49; PULSE 61; RESP 17; TEMP 98.9
--- NOTE | 2024-10-25 15:41 | DS ---
Discharge Summary Hospital Course Heparin drip was discontinued this morning. FINAL DISCHARGE DIAGNOSIS: [id number] myocardial infarction. Urinary tract infection, status post treated with ceftriaxone and doxycycline.. CAD with history of CABG. Diabetes mellitus. Chronic tobacco use. Left [id number] amputation. PLAN: Discharge patient to home today. Continue same home medications. New prescription for Entresto was written. Follow up with PCP in 3-5 days. Follow up with whanau support worker in 1-2 weeks. This case was reviewed and discussed with my supervising physician and the above assessment and plan was formulated and agreed upon. ATTESTATION BY PHYSICIAN I have seen and examined the patient. I reviewed the documentation, medical decision making, and treatment plan as noted by the mid-level provider above. I agree with the findings and plan of care. CRISSY VEGA MD, [facility] Oct 25, 2024 15:41
[2024-10-25 16:00] VITALS: BP 100/49; PULSE 76; RESP 17; TEMP 98.6
== END 2024-10-25 18:22 | disposition home or self-care (01) | DRG 281 ==
LOC: EDH 21:25 → EDHIP 23:40 → 3AH 10-21 04:54 → 2AH 10-21 15:30
PROVIDERS: ADMIT Internal Medicine Infectious Disease; ATTEND Internal Medicine Infectious Disease
DX: I21.4 Non-ST elevation (NSTEMI) myocardial infarction (principal); N39.0 Urinary tract infection, site not specified; I25.10 Atherosclerotic heart disease of native coronary artery without angina pectoris; N18.32 Chronic kidney disease, stage 3b; E11.22 Type 2 diabetes mellitus with diabetic chronic kidney disease; I12.9 Hypertensive chronic kidney disease with stage 1 through stage 4 chronic kidney disease, or unspecified chronic kidney disease; E78.5 Hyperlipidemia, unspecified; F17.200 Nicotine dependence, unspecified, uncomplicated; E11.51 Type 2 diabetes mellitus with diabetic peripheral angiopathy without gangrene; E66.9 Obesity, unspecified; Z83.3 Family history of diabetes mellitus; Z79.82 Long term (current) use of aspirin; Z89.512 Acquired absence of left leg below knee; Z91.199 Patient's noncompliance with other medical treatment and regimen due to unspecified reason; Z95.1 Presence of aortocoronary bypass graft; Z68.24 Body mass index [BMI] 24.0-24.9, adult
CPT/HCPCS: 36415; 71045; 80048; 80061; 81001; 82550; 82948; 83036; 83735; 83880; 84484; 85025; 85610; 85730; 87086; 87186; 93005; 93306; 93356; G0378; J0696; J1644; J1650; J3475

== ENCOUNTER 2024-12-17 01:37 | Emergency (ER) | payer MEDICARE ==
[~2024-12-17] VITALS: Ht 172.7 cm; Wt 71.7 kg
[~2024-12-17 01:37] MED LIST changes: +AMIT25TA9 PO; +ATOR40TA69 PO; -METO25TA3 PO; +NITR0.4T50 SL; -TAMS-1 PO
--- NOTE | 2024-12-17 01:50 | ERN ---
General Chief Complaint: Hypotension Stated Complaint: LOW BLOOD PRESSURE Time Seen by MD: 01:42 Source: patient, family History of Present Illness Initial Comments Patient is an 79-year-old male with a history of diabetes and heart disease status post cardiac surgery. He was at his home when his son came by to visit because neighbors had raised concerns over their well-being. The son measured the patient's blood pressure and found it was low. Patient denies dizziness or headaches or loss of consciousness or lightheadedness. Patient's blood pressure here is 112/43. Timing/Duration: unsure Allergies: Coded Allergies: No Known Drug Allergies (Unverified Allergy, 10/26/12) Home Meds Reported Medications Nitroglycerin (Nitroglycerin) 0.4 Mg Tab.subl, 0.4 MG SL AD, TAB.SL 11/17/24 Atorvastatin Calcium (LIPITOR) 40 Mg Tablet, 1 TAB PO HS for 30 Days, #30 TAB 0 Refills 11/17/24 Amitriptyline HCl (Amitriptyline HCl) 25 Mg Tablet, 25 MG PO HS, TAB 10/23/24 Glimepiride (Glimepiride) 4 Mg Tablet, 1 TAB PO BID for 30 Days, #60 TAB 0 Refills 10/23/24 Metformin HCl (Metformin HCl) 1,000 Mg Tablet, 1 TAB PO BID for 30 Days, #60 TAB 0 Refills 10/21/24 Past Medical History Past Medical History: Diabetes-Type II Past Surgical History: Other, None Surgical History Other: TRIPLE BYPASS (2009) Family History Family History: Negative Social History Social History: Smokers, Lives with family, Other ROS Dictation Patient's review of systems is otherwise negative. Physical Exam General Appearance: (+) no apparent distress Orientation: (+) alert Head/Face Trauma: No Eye: bilateral eye normal inspection, bilateral eye PERRL, bilateral eye EOMI Ear, Nose, Throat Comment Patient is hard of hearing. Neck: (+) normal inspection, (+) supple Respiratory: (+) chest non-tender, (+) lungs clear, (+) well ventilated Heart: (+) regular Vascular: (+) no edema Vascular Comment Peripheral pulses very weak. Gastrointestinal: (+) soft, (+) non-tender, (+) bowel sound present MDM Given the patient's normal blood pressure I will just give him a L of LR and discharge him from the ED. no need to draw labs. DX & DISP Disposition: Discharge Departure Impression: Primary Impression: Hypotension Condition: Stable Additional Instructions: Please return to the emergency room if you have symptoms of lightheadedness dizziness unremitting headaches or weakness and inability to get out of bed. Referrals: DOTTIE LOPEZ MD (PCP) CONNIE BELTRÁN MD December 17, 2024 01:50
[2024-12-17 01:55] VITALS: TEMP 97.7
[2024-12-17] MEDS: LACTATED RINGERS 1000ML IV STA (02:09)
[2024-12-17 03:02] VITALS: BP 120/43; PULSE 50; RESP 18; O2SAT 98
== END 2024-12-17 03:48 | disposition home or self-care (01) ==
LOC: EDH 01:37
DX: I95.9 Hypotension, unspecified (principal); E11.9 Type 2 diabetes mellitus without complications; F17.200 Nicotine dependence, unspecified, uncomplicated; Z79.84 Long term (current) use of oral hypoglycemic drugs; Z98.890 Other specified postprocedural states
CPT/HCPCS: 99283; 96360; J7120

== ENCOUNTER 2025-03-12 01:35 | Emergency (ER) | payer MEDICARE ==
[~2025-03-12] VITALS: Ht 167.6 cm; Wt 72.6 kg
[~2025-03-12 01:35] MED LIST changes: -AMIT25TA9 PO; +FURO20TA4 PO; +GABA-529 PO; +ISOS60TA77 PO; +METO25TA3 PO; -NITR0.4T50 SL; +TICA90TA PO
--- NOTE | 2025-03-12 03:00 | NUR ---
PT BROUGHT TO ED 20. PT CARE ASSUMED AT THIS TIME.
--- NOTE | 2025-03-12 03:01 | NUR ---
BLADDER SCAN : 427 ML
--- NOTE | 2025-03-12 03:26 | ERN ---
ED Note History of Present Illness Stated Complaint: UNABLE TO URINATE, CONSTIPATION Chief Complaint: Multiple Complaints Time Seen by MD: 01:47 Dictation: This is an 79-year-old male who came into the emergency room stating that he has been unable to urinate since yesterday. Patient has had the indwelling Partida catheter for more than 1 year. He had discomfort in the lower abdomen and hence he came in for evaluation. No history of any fever chills or rigors. No pyuria or hematuria that the patient could appreciate. He basically complained that no urine was flowing through his Partida catheter. Temperature 97.5 pulse 100 respirations 18 blood pressure 128/41 with a pulse oximetry of 98% on room air. His chronic medical problems include diabetes mellitus, hypertension, hypercholesterol, coronary artery disease status post CABG, carotid artery stent, peripheral arterial disease with right iliac stent, and BPH Allergies: Coded Allergies: No Known Drug Allergies (Unverified Allergy, 10/26/12) Home Meds Active Scripts Metoprolol Succinate (Toprol Xl) 25 Mg Tab.er.24h, 12.5 MG PO DAILY, #60 TAB 3 Refills Prov:KELSEY CARRILLO [facility] 02/19/25 Isosorbide Mononitrate (Isosorbide Mononitrate ER) 60 Mg Tab.er.24h, 90 MG PO DAILY, #60 TAB 3 Refills Prov:KELSEY CARRILLO [facility] 02/19/25 Ticagrelor (Brilinta) 90 Mg Tablet, 90 MG PO BID, #60 TAB 3 Refills Prov:KELSEY CARRILLO [facility] 02/19/25 Reported Medications Furosemide (Furosemide) 20 Mg Tablet, 1 TAB PO BID 02/15/25 Gabapentin (Gabapentin) 100 Mg Capsule, 1 CAP PO BID 02/15/25 Atorvastatin Calcium (LIPITOR) 40 Mg Tablet, 1 TAB PO HS for 30 Days, #30 TAB 0 Refills 11/17/24 Glimepiride (Glimepiride) 4 Mg Tablet, 1 TAB PO BID for 30 Days, #60 TAB 0 Refills 10/23/24 Metformin HCl (Metformin HCl) 1,000 Mg Tablet, 1 TAB PO BID for 30 Days, #60 TAB 0 Refills 10/21/24 Past Medical History Past Medical History: CAD, Diabetes-Type II, High Cholesterol, Heart Disease, Hypertension, Other Additional Past Medical Hx: CAROTID ARTERY DISEASE,BPH, ESBL, MRSA Surgical History: CABG, Other Surgical History Other: TRIPLE BYPASS (2010), L INTERNAL CAROTID STENT, R ILLIAC STENT Family History: Negative Social History: Smokers, Lives with family, Other RN Note Reviewed/Agreed w/PFSH: Yes Review of System Dictation Constitutional: Negative for fever,chills, and weight loss Eyes: Negative for injury, pain,redness, and discharge ENT: Negative for injury,pain or swelling Cardiovascular: Negative for chest pain, palpitations, and edema Respiratory: Negative for shortness of breath, cough, and wheezing, Abdomen/GI: Negative for abdominal pain, nausea, vomiting, diarrhea, and constipation Back: Negative for injury and pain : Negative for injury, bleeding and discharge positive for difficulty urinating MS/Extremity: Negative for injury and deformity Skin: Negative for rash, and discoloration Neuro: Negative for headache, weakness, numbness, tingling, and seizure Psych: Negative for suicide ideation, homicidal ideation, and hallucinations Initial Vital Sign VS Vital Signs Date Time Temp Pulse Resp B/P (MAP) Pulse Ox O2 Delivery O2 Flow Rate FiO2 03/12/25 01:36 97.5 100 18 128/41 98 Room Air 03/12/25 03:21 0 21 Physical Exam Dictation General: awake, alert, NAD Head/Face: Normocephalic, atraumatic Eyes: PERRL, EOMI, vision at baseline ENT: oral cavity clear, TMs clear, no signs of infection Neck: Trachea midline, supple, no nuchal rigidity Cardiovascular: RRR, normal S1/S2, No MRGs, no JVD Respiratory: CTAB, no respiratory distress, No rales or wheezes Abdomen: Soft, non-tender, non-distended, normal bowel sounds, no guarding or rebound. Positive for indwelling Partida catheter Skin: Warm, dry, normal turgor, no rash MS/Extremity: Pulses equal, no cyanosis, neurovascular intact, FROM Neuro: COAx4, GCS 15, strength 5/5, CN 2-12 intact, normal cerebellar exam, normal gait, Psych: Normal behavior, mood, and affect normal Extremities-trace edema without any palpable cords, Homans sign is negative Results (Laboratory/Radiology) Laboratory/Radiology Laboratory Tests Test 03/12/25 03:20 Urine Color LIGHT-YELLOW (YELLOW) Urine Appearance CLOUDY (CLEAR) H Urine pH 5.5 (5.0-8.0) Urine Specific [place] 1.016 (1.001-1.031) Urine Protein 20 mg/dL (NEGATIVE) H Urine Glucose (UA) >=1000 mg/dL (NEGATIVE) H Urine Ketones NEGATIVE mg/dL (NEGATIVE) Urine Occult Blood +- (TRACE) (NEGATIVE) H Urine Nitrate NEGATIVE (NEGATIVE) Urine Bilirubin NEGATIVE mg/dL (NEGATIVE) Urine Urobilinogen 0.2 mg/dL (0.2-1.0) Urine Leukocyte Esterase 500 Susan/uL (NEGATIVE) H Urine RBC 11-25 /HPF (0-1) H Urine WBC TNTC /HPF (0-1) H Urine WBC Clumps (Auto) FEW /HPF (0-1) Urine Squamous Epithelial Cells RARE /HPF (0-2) Urine Bacteria MANY /HPF (None Seen) Labs Reviewed?: Yes ED Course ED Course Orders Procedure Category Date Status Time Bladder Scan CPOE 03/12/25 Transmitted 02:20 Urinalysis Profile LAB 03/12/25 Complete 02:20 Nurse Driven Partida LYNDON 03/12/25 In Process Removal Pro 03:00 Culture Urine ALIZA 03/12/25 In Process 03:34 Ceftriaxone 1g Vial PHA 03/12/25 Complete (Rocephine 1g Inj) 04:00 Ceftriaxone 1g Vial PHA 03/12/25 Complete (Rocephine 1g Inj) 04:00 Current Medications Medications (Trade) Dose Ordered Sig/Dudley Route PRN Reason Start Time Stop Time Status Last Admin Dose Admin Ceftriaxone Sodium (ROCEphine 1G INJ) 1 gm ONCE ONCE IM 03/12/25 04:00 03/12/25 04:01 DC 03/12/25 04:10 Ceftriaxone Sodium (ROCEphine 1G INJ) 1 gm ONCE ONCE IVPB 03/12/25 04:00 03/12/25 03:56 DC Vital Signs Date Time Temp Pulse Resp B/P (MAP) Pulse Ox O2 Delivery O2 Flow Rate FiO2 03/12/25 03:21 98.1 67 16 109/51 99 Room Air* 0 21 03/12/25 01:36 97.5 100 18 128/41 98 Room Air We will perform diagnostic labs, advanced imaging and administer medications according to the patient's complaint. Once the results are available, will review and personally interpreted the labs to rule out any acute life- threatening emergency the trach require immediate intervention and treatment. I will then re-evaluate the patient after treatment and diagnostic exams have return to determine whether the patient requires any further testing, can safely be discharged home or need further admission to hospital for additional treatment and evaluation. Bladder scan at bedside revealed more than 450 cc of urine in the Partida catheter was blocked with sediment. Partida catheter was replaced and patient had an extremely small caliber Partida catheter and a 16 Divehi was placed with excellent urine output of more than 500 cc immediately. Patient admitted to significant relief and improvement. Urinalysis pending. 4:40 a.m. urinalysis showed positive leuko esterase and too numerous to count WBCs. In view of infection pertinent to indwelling Partida catheter I recommended admission to the hospital for IV antibiotic therapy and to streamline based on cultures. Patient adamantly refused to stay in the hospital and stated that he would return if symptoms worsen. Medical Decision Making MDM MDM: Differential diagnosis: Malfunctioning Partida catheter with obstruction, worsening prostate enlargement, inappropriate Partida's size, complicated UTI Rationale: Tests considered and ordered secondary to shared decision making include: Previous outside records reviewed: Old ER visits. Risk of complication and/or morbidity or mortality of patient management: None Medications-Per medication reconciliation Need for hospitalization: Patient does not meet criteria for hospitalization. Need for emergency major/minor surgery: No There are no social concerns with this patient. Prescription drug management Prescriptions will include symptomatic care Patient's prior external medical records from other ER visits were reviewed by me as indicated. Prior testing and results from previous visits were reviewed. Prior tests were taken into account with medical decision making and resource utilization, independent historian/historians were used to obtain complete medical history. I independently interpreted the test that were performed, results were reviewed by me and considered findings on radiology if ordered. Medical management and examination interpretation discussions were had by me with other qualified healthcare professionals as indicated for the patient's care. DX & DISP Disposition: Discharge Departure Impression: Primary Impression: Obstructed Partida catheter Additional Impressions: Presence of indwelling Partida catheter, UTI (urinary tract infection) due to urinary indwelling Partida catheter, BPH (benign pr ostatic hyperplasia) Condition: Stable Scripts Levofloxacin (Levofloxacin) 750 Mg Tablet 1 TAB PO DAILY for 7 Days, #7 TAB 0 Refills Prov: THOPU,ZEHRA R MD 03/12/25 Additional Instructions: Patient and the caregiver have been informed of all the diagnostic tests and the imaging conducted during the today's visit to the emergency room and has verbalized understanding of the results I have personally reviewed and interpreted all diagnostic exams performed here in the ER today as well as the vital signs documented by the nursing staff. The patient is now being dis charged to home and should follow up with the primary care physician or the specialist as directed by the ER staff. Follow-up with primary care provider in 1 to 2 days. Take medications as directed here in the emergency room. Okay to continue home medications unless otherwise discussed during your visit in the emergency room today. Return to your nearest emergency room if symptoms worsen or if there is no improvement. Call 911 if you need immediate assistance. Take Tylenol or Motrin [id number] as needed and if no contraindications are present. Increase oral hydration. A wound culture or urine culture was ordered here in the emergency room department please follow-up with primary care provider and advise them to get repeat ports from our facility. If you had any Ricki wrap/splints that were applied here, please do not remove them until you see your primary care or specialty. Referrals: DOTTIE LOPEZ MD (PCP) ZEHRA JEFF MD Mar 12, 2025 03:26
[2025-03-12 03:33] LABS: APPEARANCE,URINE CLOUDY (CLEAR); GLUCOSE, URINE (UA) >=1000 mg/dL (NEGATIVE); LEUKOCYTE ESTERASE ,URINE 500 Leu/uL (NEGATIVE); NITRATE,URINE NEGATIVE (NEGATIVE); OCCULT BLOOD,URINE +- (TRACE) (NEGATIVE)
[2025-03-12 03:34] LABS: ADD UA MICROSCOPIC YES
[2025-03-12 03:36] LABS: SQUAMOUS EPITHELIAL CELL,UR RARE /HPF (0-2); WBC CLUMP FEW /HPF (0-1)
[2025-03-12] MEDS ORDERED: LEVO750T90 PO (04:43)
[2025-03-12 06:03] VITALS: BP 156/65; PULSE 68; RESP 16; TEMP 98.2; O2SAT 99
== END 2025-03-12 06:20 | disposition home or self-care (01) ==
LOC: EDH 01:35
DX: T83.098A Other mechanical complication of other urinary catheter, initial encounter (principal); I25.10 Atherosclerotic heart disease of native coronary artery without angina pectoris; E11.9 Type 2 diabetes mellitus without complications; E78.00 Pure hypercholesterolemia, unspecified; F17.200 Nicotine dependence, unspecified, uncomplicated; I10 Essential (primary) hypertension; N39.0 Urinary tract infection, site not specified; Z79.84 Long term (current) use of oral hypoglycemic drugs; Z79.899 Other long term (current) drug therapy; Z95.1 Presence of aortocoronary bypass graft; Y82.8 Other medical devices associated with adverse incidents; Y92.89 Other specified places as the place of occurrence of the external cause
CPT/HCPCS: 99284; 87086 ×2; 87186; 81001; 51702; 96372; J0696